=== PATIENT | female | born 1960 | race Two or more races ===

== ENCOUNTER 2020-07-31 07:07 | Emergency (ER) | payer OTHER, MEDICAID, SELFPAY ==
--- NOTE | 2020-07-31 | ECG_ITS ---
Test Reason : CHEST WALL PAIN Blood Pressure : / mmHG Vent. Rate : 065 BPM Atrial Rate : 065 BPM P-R Int : 150 ms QRS Dur : 090 ms QT Int : 420 ms P-R-T Axes : 057 064 063 degrees QTc Int : 436 ms Normal sinus rhythm Normal ECG When compared with ECG of 28-FEB-2019 10:04, No significant change was found Referred By: Generic ED Physician Electronically Signed By:Freddy Cowart
--- NOTE | ~2020-07-31 | XR_ITS ---
EXAMINATION: XR CHEST CLINICAL INFORMATION: Left-sided chest pain. Possible pneumonia. COMPARISON: Chest radiographs 01/24/2020, 07/15/2019 TECHNIQUE: 2 views of the chest were obtained. FINDINGS: There is no airspace consolidation or groundglass opacity. No pneumothorax or pleural reaction or effusion. The heart is normal in size and the hilar and mediastinal contours are normal. There is no acute bony abnormality. Again, there are surgical clips overlying the right breast and right axilla and a clip overlying left lower lung field. Surgical clips also seen upper abdomen. XR/XR chest 2V IMPRESSION: Lungs clear.
--- NOTE | ~2020-07-31 | CT_ITS ---
EXAMINATION: CT ANGIOGRAM OF THE CHEST WITH AND WITHOUT CONTRAST (CT PULMONARY ANGIOGRAM FOR PE) CLINICAL INFORMATION: Reason for Exam Pleuritic chest pain, elevated D-dimer, rule out PE COMPARISON: None TECHNIQUE: Prior to contrast administration, noncontrast localization images were obtained. Subsequently, multidetector volumetric imaging was performed from the thoracic inlet to below the diaphragms following the administration of 80 mL Omnipaque 350 intravenous contrast. No contrast reaction reported Sagittal, coronal, and MIP oblique sagittal reformatted images were obtained on the CT workstation, uploaded to PACS, and reviewed. This CT examination was performed using dose optimization techniques as appropriate, variously including the following: *Automated exposure control *Adjustment of mA and/or kV according to patient size (this includes techniques or standardized protocols for targeted exams where dose is matched to indication/reason for exam; i.e. extremities or head) *Use of iterative reconstruction technique Total exam dose-length product 297 mGy-cm FINDINGS: QUALITY OF STUDY/CONTRAST BOLUS: Satisfactory. PULMONARY ARTERIES: No central or segmental pulmonary emboli. THORACIC AORTA: No aneurysm or dissection. LUNG: The lungs are well-expanded and clear of acute pneumonic process. PLEURA: No pleural effusion or pneumothorax. MEDIASTINUM: Normal heart size. No pericardial effusion. No hilar or mediastinal lymphadenopathy. No evidence of septal bowing or right heart strain. CHEST WALL/AXILLA: No axillary or internal mammary lymphadenopathy. OSSEOUS STRUCTURES: No acute or suspicious osseous abnormality. UPPER ABDOMEN: Visualized liver, spleen, pancreas and bilateral adrenal glands are unremarkable. No reflux of contrast into the hepatic veins to suggest elevated right heart pressures. CT/CT angio chest PE protocol IMPRESSION: No evidence of PE No evidence aortic dissection or aneurysm. VTE: negative
[2020-07-31 07:32] VITALS: BP 146/67; PULSE 64; RESP 19; O2SAT 96; BMI 28.3
--- NOTE | 2020-07-31 08:15 | ED.GENADULT ---
HPI - General Adult General Chief complaint: General Medical Stated complaint: multiple complaints Time Seen by Provider: 07/31/20 08:02 Source: patient Mode of arrival: ambulatory Limitations: no limitations History of Present Illness HPI narrative: 59-year-old female who presents emergency department for evaluation of left-sided chest pain. She states that the pain started 3 days prior. The pain came on gradually. The pain is constant but waxes and wanes in intensity. The pain varies from 8/10 to 10/10 she states the pain is worse if she presses on her left anterior chest or left breast. The patient states that this is a 1st episode of this type of chest pain. She denied fever, chills, cough, shortness of breath. She states that she has chronic dyspnea on exertion. She has not noticed any increased swelling in her lower extremities. She states that she has pain over her entire body secondary to her fibromyalgia but this chest pain is different. She states she took some medicine last night, she cannot recall the name of this medicine, it did not help her pain. The patient states she has a history of right-sided breast cancer but given her genetic studies she required a bilateral mastectomy and bilateral oophorectomy secondary to high risk cancer. Related Data Previous Rx's Medication Instructions Recorded ibuprofen 600 mg PO Q6H PRN #30 tab 07/31/20 Allergies Allergy/AdvReac Type Severity Reaction Status Date / Time No Known Allergies Allergy Unverified 02/09/20 15:07 [No Known Allergies*] Review of Systems Review of Systems: Yes all other systems are reviewed and are negative [facility] Past Medical History [facility] Narrative: Patient's past medical history is significant for right-sided breast cancer with bilateral mastectomy and prophylactic bilateral oophorectomy. She has history of asthma, depression, anxiety, bipolar disorder, migraines, fibromyalgia, osteoporosis, and arthritis. She denies tobacco, and alcohol use. She does smoke marijuana 2 to 3 times a week. Medical History Anxiety Arthritis Asthma Bipolar 1 disorder Breast cancer Fibromyalgia Osteoporosis Social History Social History Alcohol intake: never Smoking Status: Never smoker Use of substances other than those prescribed or required for medical reasons: Yes Substance Use Type: Marijuana Substance Use Frequency: Occasionally Advance Directives: Yes Advance Directives Information Provided: Yes Advance Directives on File: No Physical Exam Vital Signs: Vital Signs: Last Vital Signs Temp 98.2 F 07/31/20 13:34 Pulse 63 07/31/20 13:34 Resp 18 07/31/20 13:34 BP 150/76 H 07/31/20 13:34 Pulse Ox 98 07/31/20 13:34 Body Mass Index 28.3 Const: General: cooperative and healthy appearing Nutritional Appearance: overweight Orientation/consciousness: oriented to person and oriented to place Limitations: no limitations HENMT: Head: Yes normal to inspection, Yes normocephalic and Yes atraumatic Ears: external ears normal General nose exam: Normal external nose present Face and sinus: Yes normal facial exam Mouth: Normal oral and palatal mucosa present Throat: Yes posterior oropharynx normal Eyes: Periorbital: periorbital findings normal Eyelids: Yes eyelids normal Conjunctivae: conjunctivae normal Sclerae: sclerae normal Corneas: corneas normal Pupils: Equal, round and reactive pupils present Direct Ophthalmoscopy: normal light reflex Neck: Neck: Yes full ROM, Yes no lymphadenopathy, Yes no meningeal signs, Yes trachea midline and Yes supple Chest: Chest palpation & inspection: normal inspection of the chest ( bilateral breast reconstructions without nipples) and tenderness ( Left anterior chest costochondral joints) Resp: Effort & Inspection: normal respiratory effort and able to speak in complete sentences Auscultation: clear to auscultation bilaterally Cardio: Rate: regular rate Rhythm: regular rhythm Heart sounds: S1 normal heart sound present, S2 normal heart sound present and no murmurs GI: Inspection: Yes normal to inspection Palpation (GI): Soft to palpation, nontender, no guarding, not rigid and No hepatosplenomegaly present : General: Yes no CVA tenderness Back/Spine/Pelvis: Back: no CVA tenderness Cervical Spine: normal cervical lordosis Thoracic/Lumbar Spine: thoracic and lumbar spine normal to inspection Skin: Lesions: no lesions Rashes: no rashes Wounds: no wounds Neuro: General: oriented to person, oriented to place and no meningeal signs Cranial nerves: Yes CN's II-XII intact bilaterally and Yes Equal, round and reactive pupils present Cognition (Neuro): normal cognition Motor exam (neuro): 5/5 motor strength present throughout Extrem: General: Yes normal to inspection and Yes full ROM Psych: Appearance: well kempt Mental Status: mental status grossly normal Speech and movement: Normal speech and movement present Affect: normal affect Attitude: cooperative Thought process: Normal thought process present Thought content: Normal thought content present Course Course Course Narrative: 59-year-old female who presents emergency department for evaluation of 3 days of left-sided anterior chest pain which is constant but waxes and wanes in intensity. Physical examination did reveal tenderness with palpation of the left anterior chest costochondral joints. Given the patient's history of breast cancer, will do a workup on this patient to include CBC, CMP, troponin, D-dimer, EKG, chest x-ray. Her pain was treated with Toradol 30 mg IV. 1412: The patient's laboratory evaluation did reveal a normal troponin and elevated D-dimer of 245 otherwise was unremarkable. Chest x-ray was normal. CT angiogram pulmonary embolism protocol did not reveal any acute findings which is reassuring. The patient did not get any relief with her IV Toradol but she does want to go home at this point. The patient did have significant chest wall tenderness and a suspect that she has costochondritis. She was prescribed ibuprofen 600 mg 3 times a day for 5 days. She was also advised to take extra-strength Tylenol for her pain. She was given verbal and printed instructions and discharged home. Medical Decision Making Lab Data Result diagrams: 07/31/20 08:39 07/31/20 08:39 Labs: Lab Results 07/31/20 07/31/20 07/31/20 Range/Units 08:39 08:39 08:39 WBC 8.9 (4.8-10.8) X10*3/uL RBC 4.24 (4.20-5.50) X10*6/uL Hgb 12.6 (12.0-16.0) g/dl Hct 40.1 (37-47) % MCV 94.6 (80-98) fL MCH 29.7 (27.0-33.0) pg MCHC 31.4 (31.0-35.0) g/dl RDW 12.4 (11.0-16.0) % Plt Count 349 (160-400) X10*3/uL MPV 9.5 (9.4-12.3) fL Immature Gran % (Auto) 0.3 (0.0-0.4) % Neut % (Auto) 64.2 (45-73) % Lymph % (Auto) 25.1 (20-40) % [place] % (Auto) 5.8 (2-11) % Eos % (Auto) 3.8 (0-4) % Baso % (Auto) 0.8 (0-2) % Lymph # (Auto) 2.2 (1.2-4.9) X10*3/uL [place] # (Auto) 0.5 (0.1-1.2) X10*3/uL Eos # (Auto) 0.3 (0.0-0.4) X10*3/uL Baso # (Auto) 0.1 (0.0-0.2) X10*3/uL Abs Immat Gran (auto) 0.03 (0.00-0.03) X10*3/uL Absolute Neuts (auto) 5.7 (2.0-8.3) X10*3/uL Absolute Nucleated RBC 0.000 (0.0-0.012) X10*3/uL Nucleated RBC % (auto) 0.0 (0.0-0.2) /100WBC D-Dimer 245 NG/ML Sodium 142 (135-145) mmol/L Potassium 4.5 (3.3-5.1) mmol/L Chloride 107 (96-108) mmol/L Carbon Dioxide 27 (22-29) mmol/L Anion Gap 13 (12-20) BUN 18 H (9-16) mg/dL Creatinine 0.95 (0.5-1.4) mg/dL Estim Creat Clear Calc 58.6 Estimated GFR > 60 Random Glucose 99 (60-115) mg/dL Calcium 9.4 (8.4-10.2) mg/dL Total Bilirubin 0.4 (0.0-1.0) mg/dL AST 29 (5-31) U/L ALT 26 (0-31) U/L Alkaline Phosphatase 114 (39-117) U/L Troponin I High Sens (<3.5-17.0) ng/L Total Protein 7.4 (6.5-8.0) g/dL Albumin 4.3 (3.5-5.0) g/dL Lipase (8-78) U/L 07/31/20 07/31/20 Range/Units 08:39 08:39 WBC (4.8-10.8) X10*3/uL RBC (4.20-5.50) X10*6/uL Hgb (12.0-16.0) g/dl Hct (37-47) % MCV (80-98) fL MCH (27.0-33.0) pg MCHC (31.0-35.0) g/dl RDW (11.0-16.0) % Plt Count (160-400) X10*3/uL MPV (9.4-12.3) fL Immature Gran % (Auto) (0.0-0.4) % Neut % (Auto) (45-73) % Lymph % (Auto) (20-40) % [place] % (Auto) (2-11) % Eos % (Auto) (0-4) % Baso % (Auto) (0-2) % Lymph # (Auto) (1.2-4.9) X10*3/uL [place] # (Auto) (0.1-1.2) X10*3/uL Eos # (Auto) (0.0-0.4) X10*3/uL Baso # (Auto) (0.0-0.2) X10*3/uL Abs Immat Gran (auto) (0.00-0.03) X10*3/uL Absolute Neuts (auto) (2.0-8.3) X10*3/uL Absolute Nucleated RBC (0.0-0.012) X10*3/uL Nucleated RBC % (auto) (0.0-0.2) /100WBC D-Dimer NG/ML Sodium (135-145) mmol/L Potassium (3.3-5.1) mmol/L Chloride (96-108) mmol/L Carbon Dioxide (22-29) mmol/L Anion Gap (12-20) BUN (9-16) mg/dL Creatinine (0.5-1.4) mg/dL Estim Creat Clear Calc Estimated GFR Random Glucose (60-115) mg/dL Calcium (8.4-10.2) mg/dL Total Bilirubin (0.0-1.0) mg/dL AST (5-31) U/L ALT (0-31) U/L Alkaline Phosphatase (39-117) U/L Troponin I High Sens < 3.5 (<3.5-17.0) ng/L Total Protein (6.5-8.0) g/dL Albumin (3.5-5.0) g/dL Lipase 28 (8-78) U/L ECG Data Attestation: I personally reviewed and interpreted this ECG as follows: Interpretation: 0744: Normal sinus rhythm rate of 65, normal FL, QRS and QTC intervals, inverted T-wave in lead V 1, no ST segment elevation or ST segment depression, no old EKG for comparison, this is a normal EKG. Discharge Plan Discharge Clinical Impression: Acute costochondritis Patient Disposition: Home, Self-Care Instructions: Costochondritis (ED) Additional Instructions: Your EKG was unremarkable. Your D-dimer was slightly elevated however the CT scan of your chest revealed no blood clots which is reassuring. You do have significant tenderness when I push on your chest and I suspect that you have inflammation of the chest joints as the cause of your pain (costochondritis). Take ibuprofen 600 mg 3 times a day for the next 5 days to reduce the inflammation in her chest joints and hopefully this will relieve your pain. Take Tylenol (acetaminophen) 500 mg pills, 2 pills every 4 to 6 hours as needed for pain. Follow-up with your doctor in 2 days. Please return to the emergency department if your symptoms get worse or if you develop any symptoms that are concerning to you. Prescriptions: New ibuprofen 600 mg tablet 600 mg PO Q6H PRN (Reason: pain) Qty: 30 RF: 0
[2020-07-31] MEDS: Ketorolac Tromethamine 30 MG/ML VIAL IVPUSH (08:42)
[2020-07-31 08:44] LABS: MANUAL DIFF FLAG NO
[2020-07-31 08:46] LABS: Basophils Absolute Auto 0.1 X10*3/uL (0.0-0.2); Basophils Percent Auto 0.8 % (0-2); Eosinophils Absolute Auto 0.3 X10*3/uL (0.0-0.4); Eosinophils Percent Auto 3.8 % (0-4); Hematocrit 40.1 % (37-47); Hemoglobin 12.6 g/dl (12.0-16.0); Imm Gran Abs Auto 0.03 X10*3/uL (0.00-0.03); Imm Gran Pct Auto 0.3 % (0.0-0.4); Lymphocytes Absolute Auto 2.2 X10*3/uL (1.2-4.9); Lymphocytes Percent Auto 25.1 % (20-40); Mean Corpuscular HGB Conc 31.4 g/dl (31.0-35.0); Mean Corpuscular Hemoglobin 29.7 pg (27.0-33.0); Mean Corpuscular Volume 94.6 fL (80-98); Mean Platelet Volume 9.5 fL (9.4-12.3); Monocytes Absolute Auto 0.5 X10*3/uL (0.1-1.2); Monocytes Percent Auto 5.8 % (2-11); Neutrophils Absolute Auto 5.7 X10*3/uL (2.0-8.3); Neutrophils Percent Auto 64.2 % (45-73); Platelet Count 349 X10*3/uL (160-400); Red Blood Count 4.24 X10*6/uL (4.20-5.50); Red Cell Distribution Width 12.4 % (11.0-16.0); White Blood Count 8.9 X10*3/uL (4.8-10.8)
[2020-07-31 08:53] LABS: D Dimer 245 NG/ML
[2020-07-31 09:07] LABS: Lipase 28 U/L (8-78)
[2020-07-31 09:08] LABS: Alanine Aminotransferase 26 U/L (0-31); Albumin Level 4.3 g/dL (3.5-5.0); Alkaline Phosphatase 114 U/L (39-117); Anion Gap 13 (12-20); Aspartate Amino Transferase 29 U/L (5-31); Bilirubin Total 0.4 mg/dL (0.0-1.0); Blood Urea Nitrogen 18 mg/dL (9-16); Calcium 9.4 mg/dL (8.4-10.2); Carbon Dioxide 27 mmol/L (22-29); Chloride 107 mmol/L (96-108); Creatinine Clr Calc Pharmacy 58.6; Estimated Glomerular Filt Rate > 60; Glucose Random 99 mg/dL (60-115); Potassium 4.5 mmol/L (3.3-5.1); Sodium 142 mmol/L (135-145); Total Protein 7.4 g/dL (6.5-8.0)
[2020-07-31 09:13] LABS: Troponin-I High Sensitivity < 3.5 ng/L (<3.5-17.0)
[2020-07-31 09:38] VITALS: BP 140/79; PULSE 65; RESP 18; O2SAT 98
[2020-07-31 11:28] VITALS: BP 142/66; PULSE 70; RESP 18; TEMP 36.7; O2SAT 98
--- NOTE | 2020-07-31 11:31 | PC.NURSE ---
patient a&ox3, monitor and storage bin tender nsr 60s, vss, patient c/o 01/01 pain, awaiting ct scan, will continue to monitor.
[2020-07-31] MEDS: iohexoL 350 MG/ML 75 ML INFUS..BTL IV (12:14)
[2020-07-31 13:34] VITALS: BP 150/76; PULSE 63; RESP 18; TEMP 36.8; O2SAT 98
--- NOTE | 2020-07-31 13:35 | PC.NURSE ---
patient a&ox3, pt c/o 02/01 generalized pain, pt awaiting ct results, vss, will continue to monitor.
== END 2020-07-31 14:55 | disposition home or self-care (01) ==
PROVIDERS: Emergency Provider Emergency Medicine Emergency Medical Services; PCP Family Medicine
DX: M94.0 Chondrocostal junction syndrome [Tietze] (principal); J45.909 Unspecified asthma, uncomplicated; M79.7 Fibromyalgia; F12.90 Cannabis use, unspecified, uncomplicated; Z85.3 Personal history of malignant neoplasm of breast
CPT/HCPCS: 36415; 71046; 71275; 80053; 83690; 84484; 85025; 85379; 93005; 96374; 99284; J1885; Q9967

== ENCOUNTER → 2020-12-13 08:02 | Outpatient (BNV) | payer MEDICAID, OTHER, SELFPAY | PROVIDERS: PCP Family Medicine; Visit Provider Internal Medicine Medical Oncology | DX: M85.80 Other specified disorders of bone density and structure, unspecified site (principal); Z85.3 Personal history of malignant neoplasm of breast; R91.8 Other nonspecific abnormal finding of lung field; M79.7 Fibromyalgia | CPT/HCPCS: 99213 ==

== ENCOUNTER 2021-03-02 08:45 | Emergency (ER) | payer MEDICAID, SELFPAY ==
--- NOTE | ~2021-03-02 | XR_ITS ---
EXAMINATION: XR ELBOW, LEFT XR ELBOW, RIGHT XR KNEE, LEFT XR KNEE, RIGHT CLINICAL INFORMATION: Pain of the knees and elbows. COMPARISON: None TECHNIQUE: Right knee, 4 views and left knee, 4 views Left elbow, 3 views and right elbow, 3 views FINDINGS: Left elbow: Bones, joints and soft tissues have a normal appearance. Right elbow: Bones, joints and soft tissues have a normal appearance. There is a small olecranon enthesophyte. No elbow joint effusion. No arthritic disease, fracture or malalignment. Left knee: Alignment is normal and joint spaces are maintained. No joint effusion. Small osteophytes of the medial tibiofemoral compartment. Chondrocalcinosis of the menisci. Small enthesophyte at the upper pole of patella. Right knee: Bones have normal alignment and joint spaces are maintained. No fracture, subluxation or joint effusion. There are very small osteophytes of the medial tibiofemoral compartment. XR/XR elbow RT min 3V IMPRESSION: * The elbows are normal. No evidence of arthritic disease, fracture or malalignment at either elbow. * Mild osteoarthrosis of the medial tibiofemoral compartments of each knee, and there is meniscal chondrocalcinosis at the left knee.
--- NOTE | ~2021-03-02 | XR_ITS ---
EXAMINATION: XR ELBOW, LEFT XR ELBOW, RIGHT XR KNEE, LEFT XR KNEE, RIGHT CLINICAL INFORMATION: Pain of the knees and elbows. COMPARISON: None TECHNIQUE: Right knee, 4 views and left knee, 4 views Left elbow, 3 views and right elbow, 3 views FINDINGS: Left elbow: Bones, joints and soft tissues have a normal appearance. Right elbow: Bones, joints and soft tissues have a normal appearance. There is a small olecranon enthesophyte. No elbow joint effusion. No arthritic disease, fracture or malalignment. Left knee: Alignment is normal and joint spaces are maintained. No joint effusion. Small osteophytes of the medial tibiofemoral compartment. Chondrocalcinosis of the menisci. Small enthesophyte at the upper pole of patella. Right knee: Bones have normal alignment and joint spaces are maintained. No fracture, subluxation or joint effusion. There are very small osteophytes of the medial tibiofemoral compartment. XR/XR knee LT 4V IMPRESSION: * The elbows are normal. No evidence of arthritic disease, fracture or malalignment at either elbow. * Mild osteoarthrosis of the medial tibiofemoral compartments of each knee, and there is meniscal chondrocalcinosis at the left knee.
--- NOTE | ~2021-03-02 | XR_ITS ---
EXAMINATION: XR ELBOW, LEFT XR ELBOW, RIGHT XR KNEE, LEFT XR KNEE, RIGHT CLINICAL INFORMATION: Pain of the knees and elbows. COMPARISON: None TECHNIQUE: Right knee, 4 views and left knee, 4 views Left elbow, 3 views and right elbow, 3 views FINDINGS: Left elbow: Bones, joints and soft tissues have a normal appearance. Right elbow: Bones, joints and soft tissues have a normal appearance. There is a small olecranon enthesophyte. No elbow joint effusion. No arthritic disease, fracture or malalignment. Left knee: Alignment is normal and joint spaces are maintained. No joint effusion. Small osteophytes of the medial tibiofemoral compartment. Chondrocalcinosis of the menisci. Small enthesophyte at the upper pole of patella. Right knee: Bones have normal alignment and joint spaces are maintained. No fracture, subluxation or joint effusion. There are very small osteophytes of the medial tibiofemoral compartment. XR/XR knee RT 4V IMPRESSION: * The elbows are normal. No evidence of arthritic disease, fracture or malalignment at either elbow. * Mild osteoarthrosis of the medial tibiofemoral compartments of each knee, and there is meniscal chondrocalcinosis at the left knee.
--- NOTE | ~2021-03-02 | XR_ITS ---
EXAMINATION: XR ELBOW, LEFT XR ELBOW, RIGHT XR KNEE, LEFT XR KNEE, RIGHT CLINICAL INFORMATION: Pain of the knees and elbows. COMPARISON: None TECHNIQUE: Right knee, 4 views and left knee, 4 views Left elbow, 3 views and right elbow, 3 views FINDINGS: Left elbow: Bones, joints and soft tissues have a normal appearance. Right elbow: Bones, joints and soft tissues have a normal appearance. There is a small olecranon enthesophyte. No elbow joint effusion. No arthritic disease, fracture or malalignment. Left knee: Alignment is normal and joint spaces are maintained. No joint effusion. Small osteophytes of the medial tibiofemoral compartment. Chondrocalcinosis of the menisci. Small enthesophyte at the upper pole of patella. Right knee: Bones have normal alignment and joint spaces are maintained. No fracture, subluxation or joint effusion. There are very small osteophytes of the medial tibiofemoral compartment. XR/XR elbow LT min 3V IMPRESSION: * The elbows are normal. No evidence of arthritic disease, fracture or malalignment at either elbow. * Mild osteoarthrosis of the medial tibiofemoral compartments of each knee, and there is meniscal chondrocalcinosis at the left knee.
[2021-03-02 08:52] VITALS: BP 151/75; PULSE 66; RESP 16; TEMP 36.4; O2SAT 99; BMI 28.1
[2021-03-02 10:14] LABS: MANUAL DIFF FLAG NO
[2021-03-02 10:15] LABS: Basophils Percent Auto 0.5 % (0-2); Eosinophils Absolute Auto 0.2 X10*3/uL (0.0-0.4); Eosinophils Percent Auto 2.4 % (0-4); Hematocrit 37.8 % (37-47); Hemoglobin 12.1 g/dl (12.0-16.0); Imm Gran Abs Auto 0.02 X10*3/uL (0.00-0.03); Imm Gran Pct Auto 0.2 % (0.0-0.4); Lymphocytes Absolute Auto 2.4 X10*3/uL (1.2-4.9); Lymphocytes Percent Auto 28.6 % (20-40); Mean Corpuscular Hemoglobin 29.8 pg (27.0-33.0); Mean Corpuscular Volume 93.1 fL (80-98); Mean Platelet Volume 9.7 fL (9.4-12.3); Monocytes Absolute Auto 0.4 X10*3/uL (0.1-1.2); Monocytes Percent Auto 5.1 % (2-11); Neutrophils Absolute Auto 5.3 X10*3/uL (2.0-8.3); Neutrophils Percent Auto 63.2 % (45-73); Platelet Count 313 X10*3/uL (160-400); Red Blood Count 4.06 X10*6/uL (4.20-5.50); Red Cell Distribution Width 12.7 % (11.0-16.0); White Blood Count 8.5 X10*3/uL (4.8-10.8)
[2021-03-02 10:30] LABS: Alanine Aminotransferase 15 U/L (0-31); Albumin Level 4.3 g/dL (3.5-5.0); Alkaline Phosphatase 108 U/L (39-117); Anion Gap 11 (12-20); Aspartate Amino Transferase 22 U/L (5-31); Bilirubin Direct < 0.2 mg/dL (0.0-0.5); Bilirubin Total 0.3 mg/dL (0.0-1.0); Blood Urea Nitrogen 14 mg/dL (9-16); C Reactive Protein 0.64 mg/dL (< or = 0.50); Calcium 9.3 mg/dL (8.4-10.2); Carbon Dioxide 25 mmol/L (22-29); Chloride 110 mmol/L (96-108); Estimated Glomerular Filt Rate > 60; Glucose Random 95 mg/dL (60-115); Potassium 4.3 mmol/L (3.3-5.1); Sodium 142 mmol/L (135-145); Total Protein 7.1 g/dL (6.5-8.0)
[2021-03-02 11:04] LABS: Erythrocyte Sedimentation Rate 23 MM/HR (0-20)
--- NOTE | 2021-03-02 11:38 | ED_ITS ---
HPI - General Adult General Chief complaint: Extremity Problem Stated complaint: knee & elbow pain Time Seen by Provider: 03/02/21 09:05 Source: patient Mode of arrival: ambulatory Limitations: no limitations History of Present Illness HPI narrative: 60yo female with PMH Of arthritis, osteoporosis, fibromyalgia, breast cancer status post mastectomy status post chemo and radiation, anxiety, asthma, bipolar disorder here with complaints of bilateral knee and elbow pain for 1 month. Denies injury or trauma. Denies redness, swelling, fevers or chills. Also complaining of some muscle aches. Patient tells me she has not spoken to her primary care doctor. She tells me she believes this may be secondary to her underlying fibromyalgia arthritis but due to her history of cancer she wants to make sure that her ?bones are normal. Related Data Home Medications Medication Instructions Recorded Confirmed acetaminophen 325 mg tablet 2 tab PO Q6H PRN 12/13/20 12/13/20 albuterol sulfate 90 mcg/actuation 2 puff PO Q4H PRN 12/13/20 12/13/20 aerosol inhaler (ProAir HFA) amitriptyline 50 mg tablet 2 tab PO BEDTIME 12/13/20 12/13/20 atorvastatin 10 mg tablet 1 tab PO DAILY 12/13/20 12/13/20 clonazepam 2 mg tablet 1 tab PO BID 12/13/20 12/13/20 cyanocobalamin (vitamin B-12) 100 1 tab PO DAILY 12/13/20 12/13/20 mcg tablet divalproex 125 mg tablet,delayed 4 tab PO Q12H 12/13/20 12/13/20 release duloxetine 60 mg capsule,delayed 1 cap PO DAILY 12/13/20 12/13/20 release gabapentin 300 mg capsule PO 12/13/20 loratadine 10 mg tablet 1 tab PO DAILY 12/13/20 12/13/20 melatonin 5 mg tablet 1 - 2 tab PO BEDTIME PRN 12/13/20 12/13/20 omeprazole 20 mg capsule,delayed 1 cap PO DAILY 12/13/20 12/13/20 release ziprasidone HCl 60 mg capsule 1 cap PO BID 12/13/20 12/13/20 Previous Rx's Medication Instructions Recorded ibuprofen 600 mg tablet 600 mg PO Q6H PRN #30 tab 07/31/20 Allergies Allergy/AdvReac Type Severity Reaction Status Date / Time No Known Allergies Allergy Unverified 02/09/20 15:07 [No Known Allergies*] Review of Systems Review of Systems: Yes all other systems are reviewed and are negative Constitutional: Constitutional: Reports no additional constitutional complaints, Denies body ache(s), Denies chills, Denies fever(s), Denies headache(s) and Denies weakness Eyes: Eyes: Reports no additional eye complaints and Denies change in vision ENT: Reports system reviewed and no additional complaints, except as documented, Denies dizziness, Denies headache(s), Denies nasal congestion, Denies nasal discharge and Denies neck pain Cardiovascular: Cardiovascular: Reports no additional cardiovascular complaints, Denies chest pain, Denies leg edema and Denies dyspnea Respiratory: Respiratory: Reports no additional respiratory complaints, Denies cough and Denies dyspnea Gastrointestinal: Gastrointestinal: Reports no additional gastrointestinal complaints, Denies abdominal pain, Denies diarrhea, Denies nausea and Denies vomiting Genitourinary: Genitourinary: Reports no additional female genitourinary complaints and Denies urinary incontinence Musculoskeletal: Musculoskeletal: Reports no additional musculoskeletal complaints, Denies back pain, Reports arthralgias, Denies joint swelling, Denies neck pain, Denies numbness and Denies tingling Comments: Muscle aches Integumentary/Breasts: Skin/Breast: Reports system reviewed and no additional complaints, except as docu and Denies rash Neurologic: Reports system reviewed and no additional complaints, except as documented, Denies Abnormal speech present, Denies dizziness, Denies headache(s), Denies numbness, Denies tingling and Denies weakness PMF Past Medical History Attestation statement: The following information was validated with the patient. Source: old records reviewed and nursing notes reviewed Medical History Anxiety Arthritis Asthma Bipolar 1 disorder Breast cancer Fibromyalgia Osteoporosis Surgical History History of modified radical mastectomy History of removal of both ovaries Social History Social History Alcohol intake: never Patient Tobacco Use Status: Former Tobacco user Substance Use Type: Marijuana Advance Directives: No Physical Exam Vital Signs: Vital Signs: Last Vital Signs Temp 97.5 F 03/02/21 08:52 Pulse 66 03/02/21 08:52 Resp 16 03/02/21 08:52 BP 151/75 H 03/02/21 08:52 Pulse Ox 99 03/02/21 08:52 Body Mass Index 28.1 Const: General: cooperative, healthy appearing, comfortable and no acute distress Orientation/consciousness: patient oriented x3 Limitations: no limitations HENMT: Head: Yes normal to inspection Ears: hearing grossly normal bilaterally General nose exam: Normal external nose present Face and sinus: Yes normal facial exam Mouth: Normal oral and palatal mucosa present Throat: Yes posterior oropharynx normal Eyes: General: appearance normal, both eyes and all related structures Pupils: Equal, round and reactive pupils present Neck: Neck: Yes normal visual inspection Chest: Chest palpation & inspection: normal inspection of the chest Resp: Effort & Inspection: normal respiratory effort Auscultation: clear to auscultation bilaterally Cardio: Rate: regular rate Rhythm: regular rhythm Peripheral pulses: Per ipheral pulses 2+ throughout GI: Inspection: Yes normal to inspection Palpation (GI): Soft to palpation and nontender Auscultation: normal bowel sounds Back/Spine/Pelvis: Thoracic/Lumbar Spine: thoracic and lumbar spine normal to inspection Skin: General skin exam: no rashes or lesions noted Neuro: General: patient oriented x3, no focal motor deficits and normal sensation to monofilament Cranial nerves: Yes Equal, round and reactive pupils present Cognition (Neuro): normal cognition Speech: No Abnormal speech present Gait exam (Neuro): Normal gait present Motor exam (neuro): 5/5 motor strength present throughout Extrem: Other: Tenderness to the bilateral lateral aspects of the elbows with no obvious swelling, redness or deformity. There is full range of motion Tenderness to the anterior aspect of bilateral knees with no obvious swelling, redness or deformity. There is full range of motion General: Yes normal to inspection Course Course Course Narrative: 60-year-old female here with joint pain and muscle aches for about 1 month. Denies fevers, chills, weight loss, redness or swelling of the joints.. No upper respiratory symptoms. She has not concerned for COVID. She feels that her symptoms may relate be related to her underlying fibromyalgia and osteoarthritis but due to her history of cancer she wanted to make sure that everything was okay in my bones. Exam is benign Vital stable Will check x-rays, basic labs due to complaints of muscle aches 1140-x-ray show osteoarthritis. Labs are normal. Recommend patient follow-up with her outpatient provider. Reviewed worrisome signs and symptoms of when to return to the emergency department. Comfortable discharge home. Medical Decision Making MDM Narrative Medical decision making narrative: Less likely rhabdomyolysis with normal CK, renal function Medical Records Medical records reviewed: Yes I reviewed the patient's medical records. Lab Data Lab results reviewed: Yes I reviewed the patient's lab results. Result diagrams: 03/02/21 10:03/02/21 10: Labs: Lab Results 03/02/21 03/02/21 03/02/21 Range/Units 10: 10: 10: WBC 8.5 (4.8-10.8) X10*3/uL RBC 4.06 L (4.20-5.50) X10*6/uL Hgb 12.1 (12.0-16.0) g/dl Hct 37.8 (37-47) % MCV 93.1 (80-98) fL MCH 29.8 (27.0-33.0) pg MCHC 32.0 (31.0-35.0) g/dl RDW 12.7 (11.0-16.0) % Plt Count 313 (160-400) X10*3/uL MPV 9.7 (9.4-12.3) fL Immature Gran % (Auto) 0.2 (0.0-0.4) % Neut % (Auto) 63.2 (45-73) % Lymph % (Auto) 28.6 (20-40) % [place] % (Auto) 5.1 (2-11) % Eos % (Auto) 2.4 (0-4) % Baso % (Auto) 0.5 (0-2) % Lymph # (Auto) 2.4 (1.2-4.9) X10*3/uL [place] # (Auto) 0.4 (0.1-1.2) X10*3/uL Eos # (Auto) 0.2 (0.0-0.4) X10*3/uL Baso # (Auto) 0.0 (0.0-0.2) X10*3/uL Abs Immat Gran (auto) 0.02 (0.00-0.03) X10*3/uL Absolute Neuts (auto) 5.3 (2.0-8.3) X10*3/uL Absolute Nucleated RBC 0.000 (0.0-0.012) X10*3/uL Nucleated RBC % (auto) 0.0 (0.0-0.2) /100WBC ESR 23 H (0-20) MM/HR Sodium 142 (135-145) mmol/L Potassium 4.3 (3.3-5.1) mmol/L Chloride 110 H (96-108) mmol/L Carbon Dioxide 25 (22-29) mmol/L Anion Gap 11 L (12-20) BUN 14 (9-16) mg/dL Creatinine 0.83 (0.5-1.4) mg/dL Estim Creat Clear Calc 66.0 Estimated GFR > 60 Random Glucose 95 (60-115) mg/dL Calcium 9.3 (8.4-10.2) mg/dL Total Bilirubin 0.3 (0.0-1.0) mg/dL Direct Bilirubin < 0.2 (0.0-0.5) mg/dL AST 22 (5-31) U/L ALT 15 (0-31) U/L Alkaline Phosphatase 108 (39-117) U/L Total Creatine Kinase 119 (26-140) U/L C-Reactive Protein 0.64 H (< or = 0.50) mg/dL Total Protein 7.1 (6.5-8.0) g/dL Albumin 4.3 (3.5-5.0) g/dL Discharge Plan Discharge Clinical Impression: Osteoarthritis Qualifiers: Osteoarthritis location: unspecified site Patient Disposition: Home, Self-Care Instructions: Osteoarthritis (ED) Additional Instructions: Your x-rays show arthritis. Lab work normal Follow-up with your regular doctor Heat or ice as needed Motrin or Tylenol for pain as needed Prescriptions: No Action acetaminophen 325 mg tablet 2 tab PO Q6H PRN (Reason: severe pain) RF: 0 cyanocobalamin (vitamin B-12) 100 mcg tablet 1 tab PO DAILY RF: 0 atorvastatin 10 mg tablet 1 tab PO DAILY RF: 0 amitriptyline 50 mg tablet 2 tab PO BEDTIME RF: 0 clonazepam 2 mg tablet 1 tab PO BID RF: 0 divalproex 125 mg tablet,delayed release (DR/EC) 4 tab PO Q12H RF: 0 gabapentin 300 mg capsule PO RF: 0 omeprazole 20 mg capsule,delayed release(DR/EC) 1 cap PO DAILY RF: 0 albuterol sulfate [ProAir HFA] 90 mcg/actuation HFA aerosol inhaler 2 puff PO Q4H PRN (Reason: dyspnea) RF: 0 ziprasidone HCl 60 mg capsule 1 cap PO BID RF: 0 loratadine 10 mg tablet 1 tab PO DAILY RF: 0 duloxetine 60 mg capsule,delayed release(DR/EC) 1 cap PO DAILY RF: 0 melatonin 5 mg tablet 1 - 2 tab PO BEDTIME PRN (Reason: insomnia) RF: 0 ibuprofen 600 mg tablet 600 mg PO Q6H PRN (Reason: pain) Qty: 30 RF: 0 Referrals: Valentine Rodriguez MD [Primary Care Provider] - 2 days Interventions: ED Discharge Assessment Last Done: 03/02/21 11:15 Discharge Date/Time: 03/02/21 11:15
== END 2021-03-02 11:15 | disposition home or self-care (01) ==
PROVIDERS: Nurse Practitioner Family; Emergency Provider Emergency Medicine Emergency Medical Services; PCP Family Medicine
DX: M17.12 Unilateral primary osteoarthritis, left knee (principal); M25.522 Pain in left elbow; M25.521 Pain in right elbow; M25.562 Pain in left knee; M25.561 Pain in right knee; Z79.899 Other long term (current) drug therapy; Z87.891 Personal history of nicotine dependence
CPT/HCPCS: 36415; 73080; 73564; 80048; 80076; 82550; 85025; 85652; 86140; 99283

== ENCOUNTER 2021-05-29 08:19 | Outpatient (REF) | payer OTHER, MEDICAID, SELFPAY | END 2021-05-29 08:20 | disposition home or self-care (01) | LOC: HO.MAMMO 08:19 | PROVIDERS: PCP Family Medicine; Visit Provider Family Medicine | DX: Z13.89 Encounter for screening for other disorder (principal) ==

== ENCOUNTER 2021-07-15 07:37 | Emergency (ER) | payer MEDICAID, SELFPAY ==
--- NOTE | ~2021-07-15 | CT_ITS ---
EXAMINATION: CT HEAD WITHOUT CONTRAST CLINICAL INFORMATION: Headache. COMPARISON: None TECHNIQUE: Contiguous axial imaging was performed from the skull base to vertex without intravenous administration of contrast. This CT examination was performed using dose optimization techniques as appropriate, variously including the following: *Automated exposure control *Adjustment of mA and/or kV according to patient size (this includes techniques or standardized protocols for targeted exams where dose is matched to indication/reason for exam; i.e. extremities or head) *Use of iterative reconstruction technique DLP: 627 mGy-cm FINDINGS: There is no evidence of acute intracranial hemorrhage or territorial infarction. No abnormal mass effect or midline shift is seen. Cuellar to white matter differentiation is well preserved. No extra-axial fluid collections are identified. The ventricles are normal in size. There is no abnormal attenuation within the brain parenchyma. The osseous structures and soft tissues are normal. There is mild mucoperiosteal thickening left posterior ethmoid sinus. Rest of the paranasal sinuses and mastoid air cells are well-aerated. CT/CT head/brain wo con IMPRESSION: No acute intracranial process seen. Mild chronic left posterior ethmoid sinusitis.
[2021-07-15 08:24] VITALS: BP 190/93; PULSE 70; RESP 18; TEMP 36.8; O2SAT 98; BMI 29.2
--- NOTE | 2021-07-15 09:11 | ED.HA ---
HPI - Headache General Chief Complaint: Headache Stated Complaint: headache Time Seen by Provider: 07/15/21 08:39 Source: patient Mode of arrival: ambulatory Limitations: no limitations History of Present Illness MD elicited complaint: headache and migraine Pertinent past history: migraines Onset (ago): day(s) (8) Onset description: gradually Location: diffuse Severity: moderate Quality & Timing: aching, throbbing and progressively worsening Exacerbating factors: light and noise Relieving factors: nothing Context: occurred at rest Associated symptoms: nausea and photophobia Treatments prior to arrival: acetaminophen, ibuprofen and migraine medication Related Data Home Medications Medication Instructions Recorded Confirmed acetaminophen 325 mg tablet 2 tab PO Q6H PRN 12/13/20 12/13/20 albuterol sulfate 90 mcg/actuation 2 puff PO Q4H PRN 12/13/20 12/13/20 aerosol inhaler (ProAir HFA) amitriptyline 50 mg tablet 2 tab PO BEDTIME 12/13/20 12/13/20 atorvastatin 10 mg tablet 1 tab PO DAILY 12/13/20 12/13/20 clonazepam 2 mg tablet 1 tab PO BID 12/13/20 12/13/20 cyanocobalamin (vitamin B-12) 100 1 tab PO DAILY 12/13/20 12/13/20 mcg tablet divalproex 125 mg tablet,delayed 4 tab PO Q12H 12/13/20 12/13/20 release duloxetine 60 mg capsule,delayed 1 cap PO DAILY 12/13/20 12/13/20 release gabapentin 300 mg capsule PO 12/13/20 loratadine 10 mg tablet 1 tab PO DAILY 12/13/20 12/13/20 melatonin 5 mg tablet 1 - 2 tab PO BEDTIME PRN 12/13/20 12/13/20 omeprazole 20 mg capsule,delayed 1 cap PO DAILY 12/13/20 12/13/20 release ziprasidone HCl 60 mg capsule 1 cap PO BID 12/13/20 12/13/20 Previous Rx's Medication Instructions Recorded ibuprofen 600 mg tablet 600 mg PO Q6H PRN #30 tab 07/31/20 pyhkoaspac-rxgjgqjzdivdw-zcwglchx 1 tab PO Q6H PRN #20 tab 07/15/21 50 mg-325 mg-40 mg tablet cyclobenzaprine 10 mg tablet 10 mg PO TID PRN #14 tab 07/15/21 ondansetron 4 mg disintegrating 4 mg PO Q8H PRN #20 tab 07/15/21 tablet Allergies Allergy/AdvReac Type Severity Reaction Status Date / Time No Known Allergies Allergy Unverified 02/09/20 15:07 [No Known Allergies*] Review of Systems Review of Systems: Constitutional : No Fever, No Chills, No Fatigue ENT/Mouth : No sore throat, No Rhinorrhea Eyes: No Eye Pain, No Swelling, No Redness Cardiovascular : No Chest Pain, No SOB, No Dyspnea on Exertion Respiratory : No Cough, No Sputum Gastrointestinal : pos Nausea, No Vomiting, No Diarrhea, No abdominal Pain Genitourinary : No Dysuria, No Urinary Frequency, No Hematuria, Musculoskeletal : No joint pain, No Myalgias, No Joint Swelling Skin : No Skin Lesions, No rash Neuro : No Weakness, No Numbness, No Dizziness, positive Headache Psych : No Anxiety/Panic, No Depression Heme/Lymph: No Bruising, No Bleeding,No Lymphadenopathy Endocrine : No Polyuria, No Polydipsia All other systems reviewed and are negative [facility] Past Medical History Attestation statement: The following information was validated with the patient. Medical History (Updated 07/15/21 @ 11:08 by Nora Nur DO) Anxiety Arthritis Asthma Bipolar 1 disorder Breast cancer Chronic headaches Fibromyalgia Osteoporosis Surgical History History of modified radical mastectomy History of removal of both ovaries Social History Social History Alcohol intake: never Patient Tobacco Use Status: Former Tobacco user Use of substances other than those prescribed or required for medical reasons: No Substance Use Type: Marijuana Advance Directives: No Advance Directives Information Provided: No Physical Exam Vital Signs: Vital Signs: Last Vital Signs Temp 98.3 F 07/15/21 08:24 Pulse 70 07/15/21 08:24 Resp 18 07/15/21 08:24 BP 190/93 H 07/15/21 08:24 Pulse Ox 98 07/15/21 08:24 BMI result Body Mass Index 29.2 Appearance: Alert. Oriented X3. No acute distress. Eyes: Pupils equal, round and reactive to light. ENT: Pharynx normal. Neck: Normal inspection. Neck supple. no meningeal signs CVS: Normal heart rate and rhythm. Pulses normal. Respiratory: No respiratory distress. Breath sounds normal. Abdomen: Soft and non-tender. Skin: Skin warm and dry. Normal skin color. Normal skin turgor. Extremities: No lower extremity edema. No calf ttp Neuro: Oriented X 3. No motor deficit. No sensory deficit. Course Course Course Narrative: patient feels better stable for DC MDM - Headache MDM Narrative Medical decision making narrative: 60 yo female hx of breast cancer, chronic migraines, no blood thinners here with headache x 8 days, no fevers, normal neuro exam - given history though she reports chronic headaches very similar to this will obtain imaging for mass - doubt SAH[employer] infection. IV medications to abort pain. Dispo per results and findings. Discharge Plan Discharge Clinical Impression: Tension headache Patient Disposition: Home, Self-Care Instructions: Tension Headache (ED) Additional Instructions: return to ED for any worsening symptoms or concerns Prescriptions: New cyclobenzaprine 10 mg tablet 10 mg PO TID PRN (Reason: muscle spasm) Qty: 14 0RF exjpscxabi-qalscbtkrlwjc-xrju 50-325-40 mg tablet 1 tab PO Q6H PRN (Reason: pain) Qty: 20 0RF ondansetron 4 mg tablet,disintegrating 4 mg PO Q8H PRN (Reason: nausea and vomiting) Qty: 20 0RF No Action acetaminophen 325 mg tablet 2 tab PO Q6H PRN (Reason: severe pain) 0RF cyanocobalamin (vitamin B-12) 100 mcg tablet 1 tab PO DAILY 0RF atorvastatin 10 mg tablet 1 tab PO DAILY 0RF amitriptyline 50 mg tablet 2 tab PO BEDTIME 0RF clonazepam 2 mg tablet 1 tab PO BID 0RF divalproex 125 mg tablet,delayed release (DR/EC) 4 tab PO Q12H 0RF gabapentin 300 mg capsule PO 0RF omeprazole 20 mg capsule,delayed release(DR/EC) 1 cap PO DAILY 0RF albuterol sulfate [ProAir HFA] 90 mcg/actuation HFA aerosol inhaler 2 puff PO Q4H PRN (Reason: dyspnea) 0RF ziprasidone HCl 60 mg capsule 1 cap PO BID 0RF loratadine 10 mg tablet 1 tab PO DAILY 0RF duloxetine 60 mg capsule,delayed release(DR/EC) 1 cap PO DAILY 0RF melatonin 5 mg tablet 1 - 2 tab PO BEDTIME PRN (Reason: insomnia) 0RF ibuprofen 600 mg tablet 600 mg PO Q6H PRN (Reason: pain) Qty: 30 0RF
[2021-07-15] MEDS: Metoclopramide HCl 10 MG/2 ML VIAL IVPUSH (10:31)
[2021-07-15] MEDS: diphenhydrAMINE HCL 50 MG/ML VIAL 25 MG IVPUSH (10:31)
[2021-07-15] MEDS: Ketorolac Tromethamine 15 MG/ML VIAL 30 MG IVPUSH (10:31)
[2021-07-15 11:04] VITALS: BP 150/81; PULSE 66; RESP 18; TEMP 36.8; O2SAT 99
== END 2021-07-15 11:15 | disposition home or self-care (01) ==
PROVIDERS: Emergency Provider Emergency Medicine; PCP Family Medicine
DX: G44.209 Tension-type headache, unspecified, not intractable (principal); Z87.891 Personal history of nicotine dependence; Z79.899 Other long term (current) drug therapy
CPT/HCPCS: 70450; 96374; 96375; 99284; J1200; J1885; J2765

== ENCOUNTER 2021-10-25 10:42 | Outpatient (REF) | payer MEDICAID, SELFPAY ==
[2021-10-25 11:34] LABS: COVID-19 Test Positive (Negative); IDNOW Serial# 55D5AD1C
== END 2021-10-25 10:43 | disposition home or self-care (01) ==
LOC: HO.LAB 10:42
PROVIDERS: Visit Provider Internal Medicine
DX: Z20.822 Contact with and (suspected) exposure to COVID-19 (principal)
CPT/HCPCS: 87635; C9803

== ENCOUNTER 2021-12-10 07:51 | Outpatient (REF) | payer MEDICAID, SELFPAY ==
--- NOTE | ~2021-12-10 | MM_ITS ---
EXAMINATION: BONE DENSITOMETRY CLINICAL INDICATION: Osteoporosis. COMPARISON: Previous BD dated 12/05/2019 and baseline BD dated 05/21/2010. TECHNIQUE: Using a [employer] DXA System (software version: 13.1) manufactured by [employer], dual-energy x-ray absorptiometry was performed of the lumbar spine and left hip. The images are of good technical quality. Summary results are attached. FINDINGS: AP SPINE L1-L4: Current: BMD 0.945 g/cm2, Z-score -1.0, T-score -2.0, osteopenia, 5.1% decrease from previous, 0.1% increase from baseline (<5% change is not significant). Prior: BMD 0.996 g/cm2. Baseline: BMD 0.944 g/cm2. LEFT FEMUR, NECK: Current: BMD 0.859 g/cm2, Z-score -0.2, T-score -1.3, osteopenia. Prior: BMD 0.874 g/cm2. Baseline: BMD 0.913 g/cm2. LEFT FEMUR, TOTAL: Current: BMD 1.006 g/cm2, Z-score 0.7, T-score 0.0, normal, 3.3% increase from previous, 0.8% decrease from baseline (<5% change is not significant). Prior: BMD 0.974 g/cm2. Baseline: BMD 1.014 g/cm2. IDENTIFIED RISK FACTORS: Osteoporosis. Early menopause, secondary osteoporosis, bilateral oophorectomy. HISTORY OF FRACTURE: None listed. MEDICATIONS: Calcium supplements or multivitamin, vitamin D. MM/XR DEXA axial skeleton IMPRESSION: 1. DIAGNOSIS: Osteopenia based on the lowest T-score value of -2.0 in the lumbar spine applying World Health Organization criteria. 2. 10-YEAR FRACTURE RISK PREDICTION, FRAX: Major osteoporotic fracture (clinical spine, forearm, hip or shoulder) 4.1%. Hip fracture 0.3%. 3. Treatment Recommendations: NOF guidelines recommend consideration for treatment in postmenopausal women and men age 50 and older presenting with the following: -A hip or vertebral (clinical or morphometric) fracture. -T-score less than or equal to -2.5 at the femoral neck or spine after appropriate evaluation to exclude secondary causes. -Low bone mass at the hip or spine and a 10-year fracture probability by FRAX of greater than or equal to 3% for hip fracture or greater than or equal to 20% for major osteoporotic fracture based on the [place] adapted WHO algorithm. 4. Other Recommendations: All treatment decisions require clinical judgment and consideration of individual patient factors, including patient preferences, comorbidities, previous drug use, risk factors not captured in the FRAX model (e.g. frailty, falls, vitamin D deficiency, increased bone turnover, interval significant decline in bone density) and possible under or overestimation of fracture risk by FRAX. Additional medical evaluation for secondary cause of low bone mineral density may be appropriate. FUTURE SCAN RECOMMENDATION: People with diagnosed cases of osteoporosis or at high risk for fracture should have regular bone mineral density tests. For patients eligible for Medicare, routine testing is allowed once every 2 years. The testing frequency can be increased to one year for patients who have rapidly progressing disease, those who are receiving or discontinuing medical therapy to restore bone mass, or have additional risk factors.
== END 2021-12-10 07:52 | disposition home or self-care (01) ==
LOC: HO.MAMMO 07:51
PROVIDERS: Visit Provider Family Medicine
DX: Z13.820 Encounter for screening for osteoporosis (principal); Z78.0 Asymptomatic menopausal state; M85.80 Other specified disorders of bone density and structure, unspecified site
CPT/HCPCS: 77080

== ENCOUNTER 2021-12-12 08:31 | Outpatient (REF) | payer MEDICAID, SELFPAY ==
--- NOTE | ~2021-12-12 | CT_ITS ---
EXAMINATION: CT CHEST SCREENING CLINICAL INFORMATION: Smoker 2 packs per day for 40 pack years. Quit 13 years ago. COMPARISON: CT angiogram chest 07/31/2020. TECHNIQUE: Multidetector volumetric CT imaging of the chest is performed without contrast using low dose technique. Additional 2D coronal and sagittal reformatted images and axial 3D maximum intensity projection (MIP) images are generated on the CT workstation. This CT examination was performed using dose optimization techniques as appropriate, variously including the following: *Automated exposure control *Adjustment of mA and/or kV according to patient size (this includes techniques or standardized protocols for targeted exams where dose is matched to indication/reason for exam; i.e. extremities or head) *Use of iterative reconstruction technique DLP: 55 mGy-cm FINDINGS: LUNGS: The lungs are well-expanded and clear of acute pneumonic process. There are multiple 1-2 mm calcified nodules scattered throughout both lungs likely calcified granulomas. No noncalcified nodule visualized. There is no ground-glass density or atelectasis. MEDIASTINUM: The thyroid lobes are symmetric and normal. The central trachea and the bronchi are widely patent. The heart size and great vessels are normal caliber. There is no pericardial effusion. No abnormal sized mediastinal or hilar lymph nodes seen. PLEURA: There is no pleural effusion. No pleural mass or thickening. AXILLA: Multiple surgical bora seen in the right axilla. No abnormal sized lymph nodes seen. The chest wall is unremarkable. UPPER ABDOMEN: Visualized liver, spleen, pancreas and bilateral adrenal glands unremarkable. The gallbladder has been surgically removed. OSSEOUS STRUCTURES: No lytic or sclerotic process seen. CT/CT lung screening IMPRESSION: Multiple calcified nodules likely granuloma. Lungs otherwise clear. Postsurgical changes right axilla from lymph node dissection and post cholecystectomy changes. ASSESSMENT: Lung-RADS category 2: Benign RECOMMENDATION: Low-dose annual CT chest.
== END 2021-12-12 08:32 | disposition home or self-care (01) ==
LOC: HO.CT 08:31
PROVIDERS: Visit Provider Physician Assistant Medical
DX: Z12.2 Encounter for screening for malignant neoplasm of respiratory organs (principal); Z87.891 Personal history of nicotine dependence
CPT/HCPCS: 71271

== ENCOUNTER → 2022-03-10 09:51 | Outpatient (BNVA) | payer MEDICAID, SELFPAY | PROVIDERS: PCP Family Medicine; Visit Provider Internal Medicine | DX: R52 Pain, unspecified (principal) | CPT/HCPCS: 99202 ==

== ENCOUNTER 2022-08-02 06:02 | Emergency (ER) | payer MEDICAID, SELFPAY ==
--- NOTE | ~2022-08-02 | CT_ITS ---
EXAMINATION: CT ABDOMEN AND PELVIS WITHOUT CONTRAST CLINICAL INFORMATION: Abdominal pain, right lower quadrant pain COMPARISON: CT 09/06/2016 TECHNIQUE: Multidetector volumetric imaging was performed from the superior aspect of the liver through the pubic symphysis. Sagittal and coronal reformatted images were obtained on the technologist's workstation. This CT examination was performed using dose optimization techniques as appropriate, variously including the following: *Automated exposure control *Adjustment of mA and/or kV according to patient size (this includes techniques or standardized protocols for targeted exams where dose is matched to indication/reason for exam; i.e. extremities or head) *Use of iterative reconstruction technique DLP: 556 mGy-cm FINDINGS: LUNG BASES: The visualized lung bases are unremarkable. LIVER, GALLBLADDER, AND BILIARY TREE: The liver is normal in size, shape, and attenuation. No focal hepatic lesion or biliary ductal dilatation is present. Status postcholecystectomy. PANCREAS: Unremarkable. No acute inflammatory changes. SPLEEN: Unremarkable. ADRENAL GLANDS: Unremarkable. KIDNEYS AND URETERS: No renal calculi seen. There is mild dilatation of the right renal pelvis and right ureter, extending to the level of the pelvis, with the more distal ureter appearing nondistended. No radiopaque right ureteral calculi seen. Etiology of the dilatation has not been determined. No left hydroureteronephrosis. No suspicious renal lesions. BLADDER: Unremarkable. No radiopaque intraluminal calculi seen. GASTROINTESTINAL TRACT: Nonobstructive bowel gas pattern. No dilated small or large bowel loops. There is a submucosal prominence seen of the cecum and the ascending colon, nonspecific. No Pericolonic inflammatory changes seen. Findings are nonspecific. This can be seen with inflammatory bowel disease in the appropriate clinical circumstance. There is small to moderate stool in the large colon. No acute inflammatory changes otherwise seen associated with the large colon. Appendix appears unremarkable. No free fluid or free air. ABDOMINAL WALL: Small fat-containing umbilical hernia. Surgical clips in bilateral lower quadrants, could be related to prior hernia repair. LYMPH NODES: No adenopathy seen. VASCULAR: No aortic aneurysmal dilatation. PELVIC VISCERA: Within normal limits OSSEOUS STRUCTURES: Multilevel degenerative changes in the spine. CT/CT abdomen pelvis wo IV con IMPRESSION: 1. Mild dilatation of the right renal pelvis and the right ureter, extending to the level of the pelvis. No radiopaque ureteral calculi identified. Etiology of dilatation has not been determined. Clinically correlate, correlate with urinalysis. Further evaluation with follow-up CT urogram as clinically warranted. 2. Findings in the cecum and ascending colon, nonspecific, can be seen with inflammatory bowel disease. Clinically correlate. 3. Status postcholecystectomy. Fleischner guidelines were followed.
--- NOTE | ~2022-08-02 | XR_ITS ---
EXAMINATION: XR CHEST CLINICAL INFORMATION: Body ache COMPARISON: July 31, 2020 TECHNIQUE: AP portable view of the chest was obtained. FINDINGS: No significant abnormality is noted involving the heart, lungs, mediastinum, bony thorax or soft tissues. Metallic clips are seen within both breasts. Right axillary clips in place. XR/XR chest 1V IMPRESSION: No acute disease.
[2022-08-02 06:23] VITALS: BP 139/97; PULSE 78; RESP 16; TEMP 36.4; O2SAT 98; BMI 30.6
--- NOTE | 2022-08-02 07:54 | ECG_ITS ---
Test Reason : WEAKNESS Blood Pressure : / mmHG Vent. Rate : 062 BPM Atrial Rate : 062 BPM P-R Int : 170 ms QRS Dur : 088 ms QT Int : 426 ms P-R-T Axes : 066 059 066 degrees QTc Int : 432 ms Normal sinus rhythm Normal ECG When compared with ECG of 31-JUL-2020 07:44, No significant change was found Referred By: Ayanna Hudson Electronically Signed By:MARLENE ARROYO
--- NOTE | 2022-08-02 07:56 | ED.GENADULT ---
HPI - General Adult General Chief complaint: Abdominal Pain Stated complaint: Pain in both legs and knees/stabbing pain in Abd Time Seen by Provider: 08/02/22 07:36 Source: patient Mode of arrival: ambulatory Limitations: no limitations History of Present Illness HPI narrative: 61-year-old female came in for an duration of generalized body ache, bilateral lower extremities pain, abdominal pain, patient is concerned because she had a history of breast cancer, patient also with history of fibromyalgia, no recent injury or fall. Related Data Home Medications Medication Instructions Recorded Confirmed acetaminophen 325 mg tablet 2 tab PO Q6H PRN severe pain 12/13/20 03/10/22 albuterol sulfate 90 mcg/actuation 2 puff PO Q4H PRN dyspnea 12/13/20 03/10/22 aerosol inhaler (ProAir HFA) atorvastatin 10 mg tablet 1 tab PO DAILY 12/13/20 03/10/22 clonazepam 2 mg tablet 1 tab PO BID anxiety 12/13/20 03/10/22 cyanocobalamin (vitamin B-12) 100 1 tab PO DAILY 12/13/20 03/10/22 mcg tablet divalproex 125 mg tablet,delayed 4 tab PO Q12H 12/13/20 03/10/22 release loratadine 10 mg tablet 1 tab PO DAILY 12/13/20 03/10/22 omeprazole 20 mg capsule,delayed 1 cap PO DAILY 12/13/20 03/10/22 release ziprasidone HCl 60 mg capsule 1 cap PO BID 12/13/20 03/10/22 Previous Rx's Medication Instructions Recorded ibuprofen 600 mg tablet 600 mg PO Q6H PRN pain #30 tabs 07/31/20 ondansetron 4 mg disintegrating 4 mg PO Q8H PRN nausea and 07/15/21 tablet vomiting #20 tabs Allergies Allergy/AdvReac Type Severity Reaction Status Date / Time No Known Allergies Allergy Verified 03/10/22 10:03 [No Known Allergies*] Review of Systems Review of Systems: All other systems are reviewed and are negative Constitutional: Reports as per HPI and Reports no additional constitutional complaints Eyes: Reports as per HPI and Reports no additional eye complaints Reports system reviewed and no additional complaints, except as documented Cardiovascular: Reports as per HPI and Reports no additional cardiovascular complaints Respiratory: Reports as per HPI and Reports no additional respiratory complaints Gastrointestinal: Reports as per HPI and Reports no additional gastrointestinal complaints Genitourinary: Reports no additional female genitourinary complaints Musculoskeletal: Reports no additional musculoskeletal complaints Skin/Breast: Reports system reviewed and no additional complaints, except as docu Psychiatric: Reports no additional psychiatric complaints Endocrine: Reports no additional endocrine complaints Hematologic/Lymphatic: Reports no additional hematologic/lymphatic complaints Allergic/Immunologic: Reports no additional allergic/immunologic complaints Reports system reviewed and no additional complaints, except as documented and Reports Abnormal speech present [facility] Past Medical History Medical History Anxiety Arthritis Asthma Bipolar 1 disorder Breast cancer Chronic headaches Fibromyalgia Osteoporosis Surgical History History of modified radical mastectomy History of removal of both ovaries Family History Family History Father Cancer Paternal Grandmother Cancer Sister Cancer Social History Social History Household Members: Spouse Housing: Apartment Are you a primary care clinician to a significant other at home: No Do you presently have visiting nurse or other home services: No Alcohol intake: never Patient Tobacco Use Status: Former Tobacco user Smoked in Last 30 Days: No Use of substances other than those prescribed or required for medical reasons: Yes Substance Use Type: Marijuana Advance Directives: No Advance Directives Information Provided: No service: No Current occupational status: disabled Physical Exam ED Vital Signs: Vital Signs - 24 hr 08/02/22 06:23 08/02/22 08:14 08/02/22 09:53 Temperature 97.5 F 98.3 F 98.0 F Pulse Rate 78 61 59 Respiratory Rate 16 20 16 Blood Pressure 139/97 H 147/75 H 156/76 H Pulse Oximetry 98 98 98 Oxygen Delivery Method Room Air Room Air Room Air 08/02/22 11:44 Temperature Pulse Rate 61 Respiratory Rate 18 Blood Pressure 147/81 H Pulse Oximetry 98 Oxygen Delivery Method Room Air BMI result Body Mass Index 30.6 Vital signs have been reviewed as appeared to be correct. Blood pressure normal. Heart rate normal. Respiration rate normal. Temperature normal. Oxygen saturation normal. Appearance: Alert. Oriented X3. No acute distress. Head: Normal external exam. Normocephalic. Atraumatic. No Miller signs noted. No raccoon eyes noted Eyes: PERRLA. EOMI. Conjunctiva and sclera normal. Eyelids normal. ENT: TM's Normal. Pharynx normal. Uvula midline. Moist mucous membranes. No trismus noted. No drooling noted. No muffled voice noted. Neck: Normal inspection. Neck supple. FROM. No adenopathy. Thyroid Normal. No meningeal signs. No neck mass noted. CVS: Normal heart rate and rhythm. Heart sound normal. No murmurs noted. Pulses normal throughout. Respiratory: No respiratory distress. Painless inspiration. Breath sounds normal. No wheezes/rales/rhonchi noted. Chest nontender. No accessory muscle usage noted or decreased air movement noted. Abdomen: Soft and nontender. Bowel sounds normal in all 4 quadrants. No distention noted. No organomegaly noted. No visible injury noted. Back: No CVA tenderness. Full range of motion noted. Skin: Skin warm and dry. Normal skin color. Normal skin turgor. No rashes/lesions/lacerations noted. Extremities: No lower extremity edema. Extremities exhibit normal range of motion. Extremities nontender. Neuro: Oriented X 3. Cranial nerve exam: II-XII are grossly intact No motor deficit. No sensory deficit. Reflexes normal. Course Course Course Narrative: Generalized body ache, unremarkable blood workup and CT of the abdomen and pelvis. Medications Administered Discontinued Medications Generic Name Dose Route Start Last Admin Trade Name Freq PRN Reason Stop Dose Admin Sodium Chloride 1,000 mls @ 999 mls/hr 08/02/22 07:53 08/02/22 10:24 Ns IV 08/02/22 08:53 Infused .Q1H1M ONE Infusion Medical Decision Making Differential Diagnosis Differential Diagnoses: The differential diagnosis associated with the presentation includes (Abdominal pain, fibromyalgia, electrolyte disturbance, dehydration been) Lab Data MDM Lab Attestation statement: I reviewed the patient's lab results. 08/02/22 08:12 08/02/22 09:16 Labs: Lab Results 08/02/22 08/02/22 08/02/22 Range/Units 08:12 08:12 08:12 WBC 7.8 (4.8-10.8) X10*3/uL RBC 4.65 (4.20-5.50) X10*6/uL Hgb 13.5 (12.0-16.0) g/dl Hct 42.8 (37.0-47.0) % MCV 92.0 (80.0-98.0) fL MCH 29.0 (27.0-33.0) pg MCHC 31.5 (31.0-35.0) g/dl RDW 12.7 (11.0-16.0) % Plt Count 373 (160-400) X10*3/uL MPV 9.4 (9.4-12.3) fL Immature Gran % (Auto) 0.4 (0.0-0.4) % Neut % (Auto) 59.7 (45-73) % Lymph % (Auto) 29.6 (20-40) % [place] % (Auto) 6.7 (2-11) % Eos % (Auto) 2.7 (0-4) % Baso % (Auto) 0.9 (0-2) % Lymph # (Auto) 2.3 (1.2-4.9) X10*3/uL [place] # (Auto) 0.5 (0.1-1.2) X10*3/uL Eos # (Auto) 0.2 (0.0-0.4) X10*3/uL Baso # (Auto) 0.1 (0.0-0.2) X10*3/uL Abs Immat Gran (auto) 0.03 (0.00-0.03) X10*3/uL Absolute Neuts (auto) 4.6 (2.0-8.3) x10*3/uL Absolute Nucleated RBC 0.000 (0.0-0.012) X10*3/uL Nucleated RBC % (auto) 0.0 (0.0-0.2) /100WBC Sodium (135-145) mmol/L Potassium (3.3-5.1) mmol/L Chloride (96-108) mmol/L Carbon Dioxide (22-29) mmol/L Anion Gap (12-20) BUN (9-16) mg/dL Creatinine (0.5-1.4) mg/dL Estim Creat Clear Calc Estimated GFR Random Glucose (60-115) mg/dL Calcium (8.4-10.2) mg/dL Total Bilirubin (0.0-1.0) mg/dL Direct Bilirubin (0.0-0.5) mg/dL AST (5-31) U/L ALT (0-31) U/L Alkaline Phosphatase (39-117) U/L Troponin I High Sens < 3.5 (<3.5-17.0) ng/L B-Natriuretic Peptide 35 (<100) pg/mL Total Protein (6.5-8.0) g/dL Albumin (3.5-5.0) g/dL Lipase (8-78) U/L Urine Color Urine Appearance Urine pH (5.0-9.0) Ur Specific [place] (1.005-1.025) Urine Protein (Neg-Trace) mg/dL Urine Glucose (UA) (Negative) mg/dL Urine Ketones (Negative) mg/dL Urine Blood (Negative) Urine Nitrite (Negative) Ur Leukocyte Esterase (Negative) Urine RBC (0-2) /HPF Urine WBC (0-5) /HPF Ur Squamous Epith Cells (0-2) /HPF Urine Bacteria (None Seen) Hyaline Casts (0-2) /LPF COVID-19 (DELL) (Negative) COVID-19 Clin Com Influenza Type A (PCR) (Negative) Influenza Type B (PCR) (Negative) RSV RNA Qual (PCR) (Negative) SARS-CoV-2 RNA (RT-PCR) (Negative) 08/02/22 08/02/22 08/02/22 Range/Units 08:13 08:13 09:16 WBC (4.8-10.8) X10*3/uL RBC (4.20-5.50) X10*6/uL Hgb (12.0-16.0) g/dl Hct (37.0-47.0) % MCV (80.0-98.0) fL MCH (27.0-33.0) pg MCHC (31.0-35.0) g/dl RDW (11.0-16.0) % Plt Count (160-400) X10*3/uL MPV (9.4-12.3) fL Immature Gran % (Auto) (0.0-0.4) % Neut % (Auto) (45-73) % Lymph % (Auto) (20-40) % [place] % (Auto) (2-11) % Eos % (Auto) (0-4) % Baso % (Auto) (0-2) % Lymph # (Auto) (1.2-4.9) X10*3/uL [place] # (Auto) (0.1-1.2) X10*3/uL Eos # (Auto) (0.0-0.4) X10*3/uL Baso # (Auto) (0.0-0.2) X10*3/uL Abs Immat Gran (auto) (0.00-0.03) X10*3/uL Absolute Neuts (auto) (2.0-8.3) x10*3/uL Absolute Nucleated RBC (0.0-0.012) X10*3/uL Nucleated RBC % (auto) (0.0-0.2) /100WBC Sodium 141 (135-145) mmol/L Potassium 4.8 (3.3-5.1) mmol/L Chloride 109 H (96-108) mmol/L Carbon Dioxide 25 (22-29) mmol/L Anion Gap 12 (12-20) BUN 14 (9-16) mg/dL Creatinine 0.86 (0.5-1.4) mg/dL Estim Creat Clear Calc 62.9 Estimated GFR > 60 Random Glucose 103 (60-115) mg/dL Calcium 9.2 (8.4-10.2) mg/dL Total Bilirubin 0.5 (0.0-1.0) mg/dL Direct Bilirubin < 0.2 (0.0-0.5) mg/dL AST 31 (5-31) U/L ALT 25 (0-31) U/L Alkaline Phosphatase 110 (39-117) U/L Troponin I High Sens (<3.5-17.0) ng/L B-Natriuretic Peptide (<100) pg/mL Total Protein 7.2 (6.5-8.0) g/dL Albumin 4.4 (3.5-5.0) g/dL Lipase 24 (8-78) U/L Urine Color Urine Appearance Urine pH (5.0-9.0) Ur Specific [place] (1.005-1.025) Urine Protein (Neg-Trace) mg/dL Urine Glucose (UA) (Negative) mg/dL Urine Ketones (Negative) mg/dL Urine Blood (Negative) Urine Nitrite (Negative) Ur Leukocyte Esterase (Negative) Urine RBC (0-2) /HPF Urine WBC (0-5) /HPF Ur Squamous Epith Cells (0-2) /HPF Urine Bacteria (None Seen) Hyaline Casts (0-2) /LPF COVID-19 (DELL) Negative (Negative) COVID-19 Clin Com See Note Influenza Type A (PCR) NEGATIVE (Negative) Influenza Type B (PCR) NEGATIVE (Negative) RSV RNA Qual (PCR) NEGATIVE (Negative) SARS-CoV-2 RNA (RT-PCR) NEGATIVE (Negative) 08/02/22 Range/Units 09:16 WBC (4.8-10.8) X10*3/uL RBC (4.20-5.50) X10*6/uL Hgb (12.0-16.0) g/dl Hct (37.0-47.0) % MCV (80.0-98.0) fL MCH (27.0-33.0) pg MCHC (31.0-35.0) g/dl RDW (11.0-16.0) % Plt Count (160-400) X10*3/uL MPV (9.4-12.3) fL Immature Gran % (Auto) (0.0-0.4) % Neut % (Auto) (45-73) % Lymph % (Auto) (20-40) % [place] % (Auto) (2-11) % Eos % (Auto) (0-4) % Baso % (Auto) (0-2) % Lymph # (Auto) (1.2-4.9) X10*3/uL [place] # (Auto) (0.1-1.2) X10*3/uL Eos # (Auto) (0.0-0.4) X10*3/uL Baso # (Auto) (0.0-0.2) X10*3/uL Abs Immat Gran (auto) (0.00-0.03) X10*3/uL Absolute Neuts (auto) (2.0-8.3) x10*3/uL Absolute Nucleated RBC (0.0-0.012) X10*3/uL Nucleated RBC % (auto) (0.0-0.2) /100WBC Sodium (135-145) mmol/L Potassium (3.3-5.1) mmol/L Chloride (96-108) mmol/L Carbon Dioxide (22-29) mmol/L Anion Gap (12-20) BUN (9-16) mg/dL Creatinine (0.5-1.4) mg/dL Estim Creat Clear Calc Estimated GFR Random Glucose (60-115) mg/dL Calcium (8.4-10.2) mg/dL Total Bilirubin (0.0-1.0) mg/dL Direct Bilirubin (0.0-0.5) mg/dL AST (5-31) U/L ALT (0-31) U/L Alkaline Phosphatase (39-117) U/L Troponin I High Sens (<3.5-17.0) ng/L B-Natriuretic Peptide (<100) pg/mL Total Protein (6.5-8.0) g/dL Albumin (3.5-5.0) g/dL Lipase (8-78) U/L Urine Color Yellow Urine Appearance Clear Urine pH 6.0 (5.0-9.0) Ur Specific [place] 1.015 (1.005-1.025) Urine Protein Trace (Neg-Trace) mg/dL Urine Glucose (UA) Negative (Negative) mg/dL Urine Ketones Negative (Negative) mg/dL Urine Blood Trace H (Negative) Urine Nitrite Positive H (Negative) Ur Leukocyte Esterase Negative (Negative) Urine RBC 0-2 (0-2) /HPF Urine WBC 0-5 (0-5) /HPF Ur Squamous Epith Cells 0-2 (0-2) /HPF Urine Bacteria 4+ (None Seen) Hyaline Casts 0-2 (0-2) /LPF COVID-19 (DELL) (Negative) COVID-19 Clin Com Influenza Type A (PCR) (Negative) Influenza Type B (PCR) (Negative) RSV RNA Qual (PCR) (Negative) SARS-CoV-2 RNA (RT-PCR) (Negative) Independent Interpretation I performed an independent interpretation of an: CT Scan (Abdomen and pelvis: No acute pathology.) Radiology Impression Discussion of test interpretation with radiology: I have reviewed the radiologist's reading. Discharge Plan Discharge Clinical Impression: Generalized pain Patient Disposition: Home, Self-Care Instructions: Musculoskeletal Pain (ED) Prescriptions: No Action acetaminophen 325 mg tablet 2 tab PO Q6H PRN (Reason: severe pain) cyanocobalamin (vitamin B-12) 100 mcg tablet 1 tab PO DAILY atorvastatin 10 mg tablet 1 tab PO DAILY clonazepam 2 mg tablet 1 tab PO BID divalproex 125 mg tablet,delayed release (DR/EC) 4 tab PO Q12H omeprazole 20 mg capsule,delayed release(DR/EC) 1 cap PO DAILY albuterol sulfate [ProAir HFA] 90 mcg/actuation HFA aerosol inhaler 2 puff PO Q4H PRN (Reason: dyspnea) ziprasidone HCl 60 mg capsule 1 cap PO BID loratadine 10 mg tablet 1 tab PO DAILY ibuprofen 600 mg tablet 600 mg PO Q6H PRN (Reason: pain) Qty: 30 0RF ondansetron 4 mg tablet,disintegrating 4 mg PO Q8H PRN (Reason: nausea and vomiting) Qty: 20 0RF Referrals: Valentine Rodriguez MD [Primary Care Provider] - Stand Alone Forms: Work/School Release
[2022-08-02 08:14] VITALS: BP 147/75; PULSE 61; RESP 20; TEMP 36.8; O2SAT 98
[2022-08-02 08:16] LABS: MANUAL DIFF FLAG NO
[2022-08-02] MEDS: 0.9 % Sodium Chloride 1,000 ML 999 ML IV (08:20)
[2022-08-02 08:24] LABS: Basophils Absolute Auto 0.1 X10*3/uL (0.0-0.2); Basophils Percent Auto 0.9 % (0-2); Eosinophils Absolute Auto 0.2 X10*3/uL (0.0-0.4); Eosinophils Percent Auto 2.7 % (0-4); Hematocrit 42.8 % (37.0-47.0); Hemoglobin 13.5 g/dl (12.0-16.0); Imm Gran Abs Auto 0.03 X10*3/uL (0.00-0.03); Imm Gran Pct Auto 0.4 % (0.0-0.4); Lymphocytes Absolute Auto 2.3 X10*3/uL (1.2-4.9); Lymphocytes Percent Auto 29.6 % (20-40); Mean Corpuscular HGB Conc 31.5 g/dl (31.0-35.0); Mean Platelet Volume 9.4 fL (9.4-12.3); Monocytes Absolute Auto 0.5 X10*3/uL (0.1-1.2); Monocytes Percent Auto 6.7 % (2-11); Neutrophils Absolute Auto 4.6 x10*3/uL (2.0-8.3); Neutrophils Percent Auto 59.7 % (45-73); Platelet Count 373 X10*3/uL (160-400); Red Blood Count 4.65 X10*6/uL (4.20-5.50); Red Cell Distribution Width 12.7 % (11.0-16.0); White Blood Count 7.8 X10*3/uL (4.8-10.8)
[2022-08-02 08:33] LABS: COVID-19 Test Negative (Negative); IDNOW Serial# 16C4AD1C
[2022-08-02 08:42] LABS: B Type Natriuretic Peptide 35 pg/mL (<100)
[2022-08-02 08:48] LABS: Troponin-I High Sensitivity < 3.5 ng/L (<3.5-17.0)
[2022-08-02 09:19] LABS: Influenza A PCR NEGATIVE (Negative); Influenza B PCR NEGATIVE (Negative); Resp Syncy Virus RNA Qual PCR NEGATIVE (Negative); SARS COV2 PCR INHOUSE NEGATIVE (Negative)
[2022-08-02 09:24] LABS: Appearance Urine Clear; Color Urine Yellow; Glucose Urine UA Negative (Negative); Leukocyte Esterase Urine Negative (Negative); Nitrite Urine Positive (Negative); Specific Gravity - Urine 1.015 (1.005-1.025); UMIC TRIGGER UACC YES; Urine Blood Trace (Negative); Urine Ketones Negative (Negative); Urine Protein Trace mg/dL (Neg-Trace)
[2022-08-02 09:26] LABS: Bacteria Urine 4+ (None Seen); Hyaline Casts Urine 0-2 /LPF (0-2); RBC Urine 0-2 /HPF (0-2); Squamous Epithelial Cell Urine 0-2 /HPF (0-2); UACC Culture Trigger YES; WBC Urine 0-5 /HPF (0-5)
[2022-08-02 09:37] LABS: Alanine Aminotransferase 25 U/L (0-31); Albumin Level 4.4 g/dL (3.5-5.0); Alkaline Phosphatase 110 U/L (39-117); Anion Gap 12 (12-20); Aspartate Amino Transferase 31 U/L (5-31); Bilirubin Direct < 0.2 mg/dL (0.0-0.5); Bilirubin Total 0.5 mg/dL (0.0-1.0); Blood Urea Nitrogen 14 mg/dL (9-16); Calcium 9.2 mg/dL (8.4-10.2); Carbon Dioxide 25 mmol/L (22-29); Chloride 109 mmol/L (96-108); Creatinine Clr Calc Pharmacy 62.9; Estimated Glomerular Filt Rate > 60; Glucose Random 103 mg/dL (60-115); Lipase 24 U/L (8-78); Potassium 4.8 mmol/L (3.3-5.1); Sodium 141 mmol/L (135-145); Total Protein 7.2 g/dL (6.5-8.0)
[2022-08-02 09:53] VITALS: BP 156/76; PULSE 59; RESP 16; TEMP 36.7; O2SAT 98
[2022-08-02 11:44] VITALS: BP 147/81; PULSE 61; RESP 18; O2SAT 98
== END 2022-08-02 12:21 | disposition home or self-care (01) ==
PROVIDERS: Emergency Provider Emergency Medicine; PCP Family Medicine
DX: R52 Pain, unspecified (principal); Z20.822 Contact with and (suspected) exposure to COVID-19; Z20.828 Contact with and (suspected) exposure to other viral communicable diseases; M79.7 Fibromyalgia; F12.90 Cannabis use, unspecified, uncomplicated; Z85.3 Personal history of malignant neoplasm of breast; Z87.891 Personal history of nicotine dependence; Z79.02 Long term (current) use of antithrombotics/antiplatelets; Z79.899 Other long term (current) drug therapy
CPT/HCPCS: 0241U; 71045; 74176; 80048; 80076; 81001; 83690; 83880; 84484; 85025; 87086; 87088; 87186; 87635; 93005; 99284; 99285

== ENCOUNTER → 2022-11-03 11:12 | Outpatient (BNVA) | payer MEDICAID, SELFPAY | PROVIDERS: PCP Family Medicine; Visit Provider Surgery | DX: Z12.11 Encounter for screening for malignant neoplasm of colon (principal); Z85.3 Personal history of malignant neoplasm of breast | CPT/HCPCS: 99202 ==

== ENCOUNTER → 2022-11-05 09:47 | Outpatient (BNVA) | payer MEDICAID, SELFPAY | PROVIDERS: PCP Family Medicine; Visit Provider Surgery | DX: Z31.438 Encounter for other genetic testing of female for procreative management (principal) | CPT/HCPCS: 99211 ==

== ENCOUNTER 2022-12-16 07:48 | Day surgery (SDC) | payer MEDICAID, SELFPAY ==
[2022-12-12 13:08] VITALS: BMI 29.4
--- NOTE | 2022-12-15 09:02 | HO.ANESPROP2 ---
HPI - Anesthesia Eval Consult details Narrative: 62yo F for Colonoscopy, poss polypectomy PMFSH Active Problems Active Problems: All Active Problems (Updated 11/03/22 @ 11:38 by Cyrus Warner MD) History of breast cancer (Acute) Colon cancer screening (Acute) Generalized pain (Acute) History of solitary pulmonary nodule (Acute) Triple negative malignant neoplasm of breast (Acute) Past Medical History Medical History (Updated 11/03/22 @ 11:38 by Cyrus Warner MD) Anxiety Arthritis Asthma Bipolar 1 disorder Breast cancer Chronic headaches Colon cancer screening Fibromyalgia History of breast cancer Osteoporosis Family History Family History Father Cancer Paternal Grandmother Cancer Sister Cancer Surgical History Surgical History History of modified radical mastectomy History of removal of both ovaries Social History Social History Household Members: Spouse Housing: Apartment Are you a primary laboratory animal care veterinarian to a significant other at home: No Do you presently have visiting nurse or other home services: No Alcohol intake: never Patient Tobacco Use Status: Former Tobacco user Substance Use Type: Marijuana service: No Current occupational status: disabled Meds Allergies Allergy/AdvReac Type Severity Reaction Status Date / Time No Known Allergies Allergy Verified 11/03/22 11:18 [No Known Allergies*] Home Medications Medication Instructions Recorded Confirmed Last Taken Type acetaminophen 325 mg tablet 2 tab PO Q6H PRN severe pain 12/13/20 11/03/22 Unknown History albuterol sulfate 90 mcg/actuation 2 puff PO Q4H PRN dyspnea 12/13/20 11/03/22 Unknown History aerosol inhaler (ProAir HFA) atorvastatin 10 mg tablet 1 tab PO DAILY 12/13/20 11/03/22 Unknown History clonazepam 2 mg tablet 1 tab PO BID anxiety 12/13/20 11/03/22 Unknown History cyanocobalamin (vitamin B-12) 100 1 tab PO DAILY 12/13/20 11/03/22 Unknown History mcg tablet divalproex 125 mg tablet,delayed 4 tab PO Q12H 12/13/20 11/03/22 Unknown History release loratadine 10 mg tablet 1 tab PO DAILY 12/13/20 11/03/22 Unknown History omeprazole 20 mg capsule,delayed 1 cap PO DAILY 12/13/20 11/03/22 Unknown History release ziprasidone HCl 60 mg capsule 1 cap PO BID 12/13/20 11/03/22 Unknown History atenolol 25 mg tablet 25 mg PO DAILY 11/03/22 11/03/22 Unknown History cholecalciferol (vitamin D3) 25 25 mcg PO DAILY 11/03/22 11/03/22 Unknown History mcg (1,000 unit) capsule (Vitamin D3) cyclobenzaprine 10 mg tablet 10 mg PO BEDTIME PRN muscle pain 11/03/22 11/03/22 Unknown History fluticasone propionate 44 2 puff inhalation BID 11/03/22 11/03/22 Unknown History mcg/actuation HFA aerosol inhaler (Flovent HFA) lisinopril 10 mg tablet 10 mg PO DAILY 11/03/22 11/03/22 Unknown History mirtazapine 45 mg tablet 45 mg PO BEDTIME 11/03/22 11/03/22 Unknown History riboflavin (vitamin B2) 100 mg 100 mg PO DAILY 11/03/22 11/03/22 Unknown History tablet (Vitamin B-2) Exam Exam Date and Time: December 15, 2022 0902 Height,Weight and Vital Signs: Height 5 ft 2 in Weight 73.028 kg Pertinent Lab Results Pertinent Lab Results: Laboratory Tests 08/02/22 08/02/22 08:12 09:16 WBC 7.8 Hgb 13.5 Hct 42.8 Plt Count 373 Sodium 141 Potassium 4.8 Chloride 109 H Carbon Dioxide 25 BUN 14 Creatinine 0.86 Narrative Narrative: EKG 07/2022 Vent. Rate : 062 BPM ? ? Atrial Rate : 062 BPM ?? P-R Int : 170 ms? QRS Dur : 088 ms ? ? QT Int : 426 ms ? ? ? P-R-T Axes : 066 059 066 degrees ?? QTc Int : 432 ms ? Normal sinus rhythm Normal ECG When compared with ECG of 31-JUL-2020 07:44, No significant change was found Assessment and Plan Assessment Anesthesia Assessment: Chart Reviewed
--- NOTE | 2022-12-16 07:46 | HO.ANESPROP2 ---
ON LICENSE OF [facility] Active Problems Active Problems: All Active Problems (Updated 11/03/22 @ 11:38 by Cyrus Warner MD) History of breast cancer (Acute) Colon cancer screening (Acute) Generalized pain (Acute) History of solitary pulmonary nodule (Acute) Triple negative malignant neoplasm of breast (Acute) Past Medical History Medical History Anxiety Arthritis Asthma Bipolar 1 disorder Breast cancer Chronic headaches Colon cancer screening Fibromyalgia History of breast cancer Osteoporosis Family History Family History Father Cancer Paternal Grandmother Cancer Sister Cancer Family history of problems with anesthesia: No Surgical History Surgical History History of modified radical mastectomy History of removal of both ovaries History of Problems with Anesthesia: No Social History Social History Household Members: Spouse Housing: Apartment Are you a primary care director to a significant other at home: No Do you presently have visiting nurse or other home services: No Alcohol intake: never Patient Tobacco Use Status: Former Tobacco user Substance Use Type: Marijuana service: No Current occupational status: disabled Meds Allergies Allergy/AdvReac Type Severity Reaction Status Date / Time No Known Allergies Allergy Verified 11/03/22 11:18 [No Known Allergies*] Active Medications: Current Medications Albuterol Sulfate (Albuterol Sulfate (0.083%) 2.5 Mg/3 Ml Vial.Neb) 2.5 mg INHALE ONCE PRN PRN Reason: Shortness of Breath/Wheezing Lactated Ringer's (Lr) 1,000 mls @ 100 mls/hr IVCONT .Q10H [facility] Home Medications Medication Instructions Recorded Confirmed Last Taken Type acetaminophen 325 mg tablet 2 tab PO Q6H PRN severe pain 12/13/20 11/03/22 Unknown History albuterol sulfate 90 mcg/actuation 2 puff PO Q4H PRN dyspnea 12/13/20 11/03/22 Unknown History aerosol inhaler (ProAir HFA) atorvastatin 10 mg tablet 1 tab PO DAILY 12/13/20 11/03/22 Unknown History clonazepam 2 mg tablet 1 tab PO BID anxiety 12/13/20 11/03/22 Unknown History cyanocobalamin (vitamin B-12) 100 1 tab PO DAILY 12/13/20 11/03/22 Unknown History mcg tablet divalproex 125 mg tablet,delayed 4 tab PO Q12H 12/13/20 11/03/22 Unknown History release loratadine 10 mg tablet 1 tab PO DAILY 12/13/20 11/03/22 Unknown History omeprazole 20 mg capsule,delayed 1 cap PO DAILY 12/13/20 11/03/22 Unknown History release ziprasidone HCl 60 mg capsule 1 cap PO BID 12/13/20 11/03/22 Unknown History atenolol 25 mg tablet 25 mg PO DAILY 11/03/22 11/03/22 Unknown History cholecalciferol (vitamin D3) 25 25 mcg PO DAILY 11/03/22 11/03/22 Unknown History mcg (1,000 unit) capsule (Vitamin D3) cyclobenzaprine 10 mg tablet 10 mg PO BEDTIME PRN muscle pain 11/03/22 11/03/22 Unknown History fluticasone propionate 44 2 puff inhalation BID 11/03/22 11/03/22 Unknown History mcg/actuation HFA aerosol inhaler (Flovent HFA) lisinopril 10 mg tablet 10 mg PO DAILY 11/03/22 11/03/22 Unknown History mirtazapine 45 mg tablet 45 mg PO BEDTIME 11/03/22 11/03/22 Unknown History riboflavin (vitamin B2) 100 mg 100 mg PO DAILY 11/03/22 11/03/22 Unknown History tablet (Vitamin B-2) Exam Exam Date and Time: December 16, 2022 0746 Height,Weight and Vital Signs: Height 5 ft 2 in Weight 73.028 kg Airway Mallampati Class: II TM Dist: >3cm Neck ROM: Full Heart: RRR Lungs: RRR Assessment and Plan Assessment Anesthesia Assessment: Anesthesia Plan Discussed Final Anesthetic Review Family History of Problems with Anesthesia: No History of Problems with Anesthesia: No NPO: Yes ASA Class: II Final Preanesthetic Review: Meds/Allgs Chart Reviewed, Consent Obtained/Reviewed and Anes Risks/Benef Reviewed Patient Risk: Low Procedure Risk: Low Anesthetic Plan Anesthetic Plan: MAC: Disposition: Standard PACU
--- NOTE | 2022-12-16 08:06 | P.HPSUR_ITS ---
Pre-Procedural Eval Section A Date of Service: 12/16/22 Section B Chief Complaint: Screening,Personal history of malignant neoplasm Details of Present Illness: for screening colonoscopy today, no GI complaints Relevant Family History (Specify if Yes): No Relevant Social History: None Present Medications: see Short Stay Collaborative assessment Medical History: Significant History (hx of breast cancer) Allergies: Allergies Allergy/AdvReac Type Severity Reaction Status Date / Time No Known Allergies Allergy Verified 11/03/22 11:18 [No Known Allergies*] Review of Systems Sugical H&P ROS: Negative: Constitution, Cardiovascular, Respiratory, Neurolo gical, Psychiatric, Hem-Onc, Allergic/Immunologic, Gastrointestinal, Genitourinary, Musculoskeletal, Integumentary, Endocrine and Eyes/Ears/Nose/Throat Exam Surgical H&P Exam: Normal: HEENT, Normal: Heart, Normal: Lungs, Normal: Extremities, Normal: Abdomen, Normal: Skin and Normal: Neurological Plan Diagnosis/Plan: Unchanged I have reviewed the history and physical and performed a pertinent physical examination on my patient. No changes have occurred unless specified. Time Spent With Patient Time: Total time managing care of this patient today ____ minutes.
[2022-12-16 08:07] VITALS: BP 180/88; PULSE 72; RESP 16; TEMP 36.7; O2SAT 98
[2022-12-16] MEDS: Lactated Ringers 1,000 ML 100 ML IVCONT (08:13)
--- NOTE | 2022-12-16 09:13 | P.OP_ITS ---
Operative Note Operative Note Date of Service: 12/16/22 Narrative: Preop diagnosis: Colon cancer screening Postop diagnosis: 1. Polyp, 1 cm, at level 60 cm, removed with hot snare; tattoo marking with Endoink done 2. small polyp about 2-3 mm just outside the cecum in the right colon 3. sigmoid diverticulosis 4. internal external hemorrhoids Procedure: Colonoscopy with polypectomy using hot snare Surgeon: Cyrus Warner MD The patient is a 62 year female here for screening colonoscopy. She understood the technique of the procedure. She was aware of the risks, benefits, and alternatives. The patient was brought to the operating room and placed in left lateral decubitus position under monitored anesthesia care. A surgical time-out was done. A full digital rectal exam was done and this did not reveal any significant anal lesions. The tip of the Olympus colonoscope was gently introduced through the anal orifice advanced with insufflation all the way to the cecum. The cecum was intubated. The cecum was identified by visualization of the ileocecal valve as well as the appendiceal orifice. The cecal mucosa was unremarkable. The scope was gradually withdrawn with careful examination of the entire colonic mucosa being done with scope withdrawal. The patient had segments of colon with thin stools. There was note of a small 2-3 mm polyp just outside the cecum in the right colo n. This was removed using cold forceps. At level of 60 cm, there was note of a polyp, about 1 cm in size. There was removed using hot snare. I also marked the area with Endoink. There was note of good hemostasis of the polypectomy site. we difficulty retrieving the specimen because of the size but were eventually able to retrieve the using the endo basket. I reinserted the scope and re-examined the distal colon. There was note of some occasional diverticulosis in the sigmoid. The rectum was reached and there were no lesions seen. There was note of internal and external hemorrhoids in the anal canal. The scope was then withdrawn completely with desufflation The patient tolerated procedure well. There were no immediate complications. We will await for the path report. In view of the size of the polyp, I would recommend another colonoscopy within the next year.
[2022-12-16 09:22] VITALS: BP 181/84; PULSE 75; RESP 16; TEMP 36.1; O2SAT 96
[2022-12-16 09:37] VITALS: BP 191/75; PULSE 55; RESP 20; TEMP 36.6; O2SAT 98
--- NOTE | 2022-12-16 09:57 | HO.POSTANES ---
Post Anesthesia Evaluation Post Anesthesia Evaluation Date of Service: 12/16/22 Vital Signs: Vital Signs Temp Pulse Resp BP Pulse Ox O2 Del Method 12/16/22 09:37 97.8 F 55 20 191/75 H 98 Room Air 12/16/22 09:22 97 F 75 16 181/84 H 96 Room Air 12/16/22 08:07 98.1 F 72 16 180/88 H 98 Room Air Anesthesia: Monitored Mental Status: Awake Pain Control: Satisfactory Nausea/Vomiting: None Hydration: Adequate Anesthesia-Related Issues: No Anes. Related Issues
== END 2022-12-16 10:01 | disposition home or self-care (01) ==
PROVIDERS: PCP Family Medicine; Visit Provider Surgery
PROC: 0DJD8ZZ Inspection of Lower Intestinal Tract, Via Natural or Artificial Opening Endoscopic (ICD-10-PCS; CPT 45378; principal; 2022-12-16 08:30)
DX: Z12.11 Encounter for screening for malignant neoplasm of colon (principal); Z86.010 Personal history of colon polyps; D12.0 Benign neoplasm of cecum; D12.4 Benign neoplasm of descending colon; K57.30 Diverticulosis of large intestine without perforation or abscess without bleeding; K59.09 Other constipation; K64.8 Other hemorrhoids; K64.4 Residual hemorrhoidal skin tags; Z85.3 Personal history of malignant neoplasm of breast; M79.7 Fibromyalgia; M81.0 Age-related osteoporosis without current pathological fracture; J45.909 Unspecified asthma, uncomplicated; Z79.51 Long term (current) use of inhaled steroids; Z79.899 Other long term (current) drug therapy; Z79.1 Long term (current) use of non-steroidal anti-inflammatories (NSAID); Z87.891 Personal history of nicotine dependence; F12.90 Cannabis use, unspecified, uncomplicated
CPT/HCPCS: 45385; 45380; 45381; 88305

== ENCOUNTER → 2022-12-16 07:48 | Outpatient (BNV) | payer MEDICAID, SELFPAY | PROVIDERS: PCP Family Medicine; Visit Provider Surgery | DX: Z12.11 Encounter for screening for malignant neoplasm of colon (principal); K57.30 Diverticulosis of large intestine without perforation or abscess without bleeding; K64.8 Other hemorrhoids; D12.0 Benign neoplasm of cecum | CPT/HCPCS: 45380; 45381; 45385 ==

== ENCOUNTER 2022-12-29 10:38 | Outpatient (AMB) | payer MEDICAID, SELFPAY ==
[2022-12-29 11:04] VITALS: BMI 30.2
--- NOTE | 2022-12-29 11:04 | MHC.OFFVIS ---
Intake Vital Signs 12/29/22 11:04 Height 5 ft 2 in Weight 165 lb BMI 30.2 Intake Visit Reasons: S/P colonoscopy & Genetic Results *HERE* Intake Note: This patient presents for a post-op assessment status post colonosocpy and genetic test results. Patient denies complaints at this time. Experimental Physicist Required: Yes Experimental Physicist Language: Molder Setter Name: [place] Information Interpreted: non-clinical & clinical Accompanied by: Self / Same As Patient Allergies No Known Allergies [No Known Allergies*] Allergy (Verified 12/29/22 11:05) Medication List - Last Reconciled 12/29/22 by Cyrus Warner MD acetaminophen 2 tabs PO Q6H PRN albuterol sulfate 90 mcg/actuation (ProAir HFA) 2 puffs PO Q4H PRN atenolol 25 mg PO DAILY atorvastatin 1 tab PO DAILY cholecalciferol (vitamin D3) (Vitamin D3) 25 mcg PO DAILY clonazepam 1 tab PO BID cyanocobalamin (vitamin B-12) 1 tab PO DAILY cyclobenzaprine 10 mg PO BEDTIME PRN divalproex 4 tabs PO Q12H fluticasone propionate 44 mcg/actuation (Flovent HFA) 2 puffs inhalation BID ibuprofen 600 mg PO Q6H PRN lisinopril 10 mg PO DAILY loratadine 1 tab PO DAILY mirtazapine 45 mg PO BEDTIME omeprazole 1 cap PO DAILY ondansetron 4 mg PO Q8H PRN riboflavin (vitamin B2) (Vitamin B-2) 100 mg PO DAILY sodium,potassium,mag sulfates 17.5-3.13-1.6 gram (Suprep Bowel Prep Kit) DILUTE; drink full amount early evening before AND next morning at least 2 hr before procedure; follow w 960 mL water PO ziprasidone HCl 1 cap PO BID HPI S/P colonoscopy & Genetic Results *HERE* HPI Details She had undergone colonoscopy for screening last 12/16/2022. She tolerated procedure well. She is here to discuss the findings. She also had undergone genetic testing and is here as well to discuss the report. Otherwise, she says she is doing well and denies any significant complaints. [facility] Medical History (Updated 12/29/22 @ 11:08 by Cyrus Warner MD) Anxiety Arthritis Asthma Bipolar 1 disorder BRCA positive Breast cancer Chronic headaches Colon cancer screening Fibromyalgia History of breast cancer HTN (hypertension) Osteoporosis Tubular adenoma of colon Surgical History History of modified radical mastectomy History of removal of both ovaries Family History Father Cancer Paternal Grandmother Cancer Sister Cancer Social History Household Members: Spouse Housing: Apartment Are you a primary medicare compliance auditor to a significant other at home: No Do you presently have visiting nurse or other home services: No Alcohol intake: never Patient Tobacco Use Status: Former Tobacco user Substance Use Type: Marijuana service: No Current occupational status: disabled Review of Systems Const Denies chills and Denies fever(s) Card Denies chest pain, Denies dyspnea and Denies dyspnea on exertion Resp Denies cough, Denies dyspnea and Denies dyspnea on exertion GI Denies hematochezia and Denies change in bowel habits Denies hematuria Musc Denies back pain and Denies limited range of motion Neuro Denies focal weakness and Denies convulsions Psych Denies depression and Denies mood swings Physical Exam Vital Signs: BMI result Body Mass Index 30.2 Const General: comfortable and no acute distress Orientation/consciousness: patient oriented x3 Neck Neck: Yes no lymphadenopathy Resp Auscultation: clear to auscultation bilaterally Cardio Rhythm: regular rhythm GI Palpation (GI): Soft to palpation, nontender and no guarding Neuro General: patient oriented x3 Assessment & Plan Assessment & Plan (1) Tubular adenoma of colon: Code(s): D12.6 - Benign neoplasm of colon, unspecified Plan: Status post colonoscopy last 12/16/2022. I removed 2 polyps, 1 in the cecum and 1 at level 60 cm. This were tubular adenomas. However, the polyp at level 60 cm was 1 cm in size. I am therefore recommending for her to undergo another colonoscopy in 1 year. I explained to his there and she says she understands. Her colonoscopy also shows diverticulosis as well as hemorrhoids. (2) BRCA positive: Code(s): Z15.01 - Genetic susceptibility to malignant neoplasm of breast; Z15.09 - Genetic susceptibility to other malignant neoplasm Plan: Her genetic testing shows that she is BRCA positive. This puts her at elevated risk for breast cancer, ovarian cancer as well as pancreatic cancer. She does have a personal history of cancer at age of 42. She says she had total mastectomy at that time and she says she had her ovaries removed. It appears that she had been previously tested for the BRCA gene and seems to have had prophylactic bilateral mastectomy, oophorectomy for risk reduction. She also says that she has been following Dr. Ramsey although it is does not seem like she has seen her in a while. It I therefore told her that she should follow-up with Dr. Ramsey especially because of this positive BRCA test. Furthermore, I emphasized to her that she should have regular annual MRI because her risk for pancreatic cancer. I will see her again in 1 year to do another colonoscopy. Coding Level of Care Code Est Pt Level 3 (34838) Diagnoses Tubular adenoma of colon D12.6 BRCA positive Z15.01; Z15.09
== END 2022-12-29 11:15 | disposition home or self-care (01) ==
PROVIDERS: PCP Family Medicine; Visit Provider Surgery
DX: D12.6 Benign neoplasm of colon, unspecified (principal); Z15.01 Genetic susceptibility to malignant neoplasm of breast; Z15.09 Genetic susceptibility to other malignant neoplasm
CPT/HCPCS: 99213

== ENCOUNTER → 2022-12-29 10:38 | Outpatient (BNVA) | payer MEDICAID, SELFPAY | PROVIDERS: PCP Family Medicine; Visit Provider Surgery | DX: D12.6 Benign neoplasm of colon, unspecified (principal); Z15.01 Genetic susceptibility to malignant neoplasm of breast; Z15.09 Genetic susceptibility to other malignant neoplasm | CPT/HCPCS: 99212 ==

== ENCOUNTER 2023-04-06 09:24 | Outpatient (REF) | payer MEDICAID, SELFPAY ==
--- NOTE | ~2023-04-06 | CT_ITS ---
EXAMINATION: CT CHEST SCREENING CLINICAL INFORMATION: Former smoker. Quit 14 years ago. 40 pack year history COMPARISON: Previous chest CT November 2021 TECHNIQUE: Multidetector volumetric CT imaging of the chest is performed without contrast using low dose technique. Additional 2D coronal and sagittal reformatted images and axial 3D maximum intensity projection (MIP) images are generated on the CT workstation. This CT examination was performed using dose optimization techniques as appropriate, variously including the following: *Automated exposure control *Adjustment of mA and/or kV according to patient size (this includes techniques or standardized protocols for targeted exams where dose is matched to indication/reason for exam; i.e. extremities or head) *Use of iterative reconstruction technique DLP: 50 mGy-cm FINDINGS: LUNGS: There is evidence of emphysema. There is mild biapical pleural and parenchymal scarring. There are small calcified pulmonary nodules. There is a small area of cystic and reticular change and calcification in the left lower lobe measuring 5 x 9 mm axial image 254 series 5. Attention on follow-up recommended. These findings are stable. There is subsegmental atelectasis in the inferior segment of the lingula. No endobronchial or endotracheal lesion. MEDIASTINUM: The mediastinum is normal. CORONARY ARTERY CALCIFICATION: None visualized on this study. PLEURA: There is no pleural effusion. No pleural mass or thickening. AXILLA: Surgical clips in the right axilla. UPPER ABDOMEN: Unremarkable OSSEOUS STRUCTURES: Mild degenerative changes of the spine CT/CT lung screening IMPRESSION: Emphysema. Stable small calcified pulmonary nodules, biapical pleural and parenchymal scarring and mixed cystic and reticular area in the left lower lobe. ASSESSMENT: Lung-RADS category 2: Benign RECOMMENDATION: Annual low-dose chest CT follow-up recommended
== END 2023-04-06 09:25 | disposition home or self-care (01) ==
LOC: HO.CT 09:24
PROVIDERS: Visit Provider Physician Assistant Medical
DX: Z12.2 Encounter for screening for malignant neoplasm of respiratory organs (principal); Z87.891 Personal history of nicotine dependence
CPT/HCPCS: 71271

== ENCOUNTER 2023-05-27 09:55 | Outpatient (REF) | payer MEDICAID, SELFPAY ==
[2023-05-27 13:04] LABS: Anion Gap 12 (12-20); Blood Urea Nitrogen 17 mg/dL (9-16); Calcium 9.9 mg/dL (8.4-10.2); Carbon Dioxide 26 mmol/L (22-29); Chloride 109 mmol/L (96-108); Estimated Glomerular Filt Rate > 60; Glucose Random 99 mg/dL (60-115); Potassium 4.5 mmol/L (3.3-5.1); Sodium 142 mmol/L (135-145)
== END 2023-05-27 09:56 | disposition home or self-care (01) ==
LOC: HO.HHCL 09:55
PROVIDERS: Referring Provider Nurse Practitioner Psychiatric/Mental Health; Visit Provider Family Medicine
DX: I10 Essential (primary) hypertension (principal); Z79.899 Other long term (current) drug therapy
CPT/HCPCS: 36415; 80048; 80053; 85025

== ENCOUNTER 2023-08-05 10:15 | Outpatient (REF) | payer MEDICAID, SELFPAY ==
[2023-08-05 11:36] LABS: C Reactive Protein 0.61 mg/dL (< or = 0.50)
[2023-08-05 12:09] LABS: Erythrocyte Sedimentation Rate 65 MM/HR (0-20)
[2023-08-06 04:19] LABS: Rheumatoid Factor < 13.0 IU/mL (<15.0)
[2023-08-06 13:08] LABS: Anti DNA DS Antibody 1 IU/mL
[2023-08-11 13:47] LABS: Anti Nuclear Antibody Screen NEGATIVE (NEGATIVE)
== END 2023-08-05 10:16 | disposition home or self-care (01) ==
LOC: HO.HHCL 10:15
PROVIDERS: Visit Provider Family Medicine
DX: M79.7 Fibromyalgia (principal)
CPT/HCPCS: 36415; 85652; 86038; 86140; 86225; 86431

== ENCOUNTER 2023-09-23 09:57 | Outpatient (AMB) | payer MEDICAID, SELFPAY ==
--- NOTE | 2023-09-23 10:13 | A.OFFVIS_ITS ---
Vital Signs 09/23/23 10:17 Height 5 ft 2 in Weight 161 lb BMI 29.4 BP 135/62 Blood Pressure Location Lt brachial Position Sitting Pulse 62 Intake Visit Reasons: one year recall colonoscopy Intake Note: This patient presents for a one year recall colonoscopy. Pt c/o; reports no complaints. Application Systems Administrator Required: No Accompanied by: Self / Same As Patient Allergies No Known Allergies [No Known Allergies*] Allergy (Verified 09/23/23 10:18) Medication List - Last Reconciled 09/23/23 by Cyrus Warner MD acetaminophen 2 tabs PO Q6H PRN albuterol sulfate 90 mcg/actuation (ProAir HFA) 2 puffs PO Q4H PRN atenolol 25 mg PO DAILY cholecalciferol (vitamin D3) (Vitamin D3) 25 mcg PO DAILY clonazepam 1 tab PO BID cyanocobalamin (vitamin B-12) 1 tab PO DAILY cyclobenzaprine 10 mg PO BEDTIME PRN fluticasone propionate 44 mcg/actuation (Flovent HFA) 2 puffs inhalation BID lisinopril 10 mg PO DAILY loratadine 1 tab PO DAILY mirtazapine 45 mg PO BEDTIME omeprazole 1 cap PO DAILY riboflavin (vitamin B2) (Vitamin B-2) 100 mg PO DAILY sodium,potassium,mag sulfates 17.5-3.13-1.6 gram (Suprep Bowel Prep Kit) DILUTE; drink full amount early evening before AND next morning at least 2 hr before procedure; follow w 960 mL water PO ziprasidone HCl 1 cap PO BID HPI HPI one year recall colonoscopy: Details: [age] year old female here for a follow-up colonoscopy. She had a colonoscopy last year and 2 adenomas were removed. One of the adenomas was 1 cm in size at level 60 cm. I had therefore recommended repeating the colonoscopy within 1 year because of the size of this adenoma. She currently denies significant complaints. She feels well overall. She denie s GI issues. She does have history of breast cancer. [facility] Medical History BRCA positive Tubular adenoma of colon HTN (hypertension) History of breast cancer Colon cancer screening Chronic headaches Asthma Breast cancer Osteoporosis Bipolar 1 disorder Anxiety Arthritis Fibromyalgia Surgical History History of removal of both ovaries History of modified radical mastectomy Family History Father Cancer Paternal Grandmother Cancer Sister Cancer Social History Household Members: Spouse Housing: Apartment Are you a primary primary care provider to a significant other at home: No Do you presently have visiting nurse or other home services: No Alcohol intake: never Patient Tobacco Use Status: Former Tobacco user Substance Use Type: Marijuana service: No Current occupational status: disabled Review of Systems Const Denies chills and Denies fever(s) Card Denies chest pain, Denies dyspnea and Denies dyspnea on exertion Resp Denies cough, Denies dyspnea and Denies dyspnea on exertion GI Denies hematochezia and Denies change in bowel habits Denies hematuria Musc Reports abnormal gait, Denies back pain and Reports limited range of motion Neuro Reports abnormal gait, Denies focal weakness and Denies convulsions Psych Denies depression and Denies mood swings Physical Exam Const Other: She walks with a limp because of leg pain General: comfortable and no acute distress Orientation/consciousness: patient oriented x3 Neck Neck: Yes no lymphadenopathy Resp Auscultation: clear to auscultation bilaterally Cardio Rhythm: regular rhythm GI Palpation (GI): Soft to palpation, nontender and no guarding Neuro General: patient oriented x3 Assessment & Plan Assessment & Plan (1) Tubular adenoma of colon: Code(s): D12.6 - Benign neoplasm of colon, unspecified Category: Medical Plan: Because of the large to adenomatous polyp removed last year at level 60 cm, I had recommended a close follow-up with a repeat colonoscopy. I reviewed with the technique of colonoscopy. I discussed the risks including but not limited to bleeding and perforation, as well as the benefits and alternatives. She had given consent. She is also being followed by Dr. Ramsey of Oncology for her history of breast cancer which was triple negative. Medications: New sodium,potassium,mag sulfates 17.5-3.13-1.6 gram (Suprep Bowel Prep Kit) DILUTE; drink full amount early evening before AND next morning at least 2 hr before procedure; follow w 960 mL water PO 354 mL 0RF Coding Level of Care Code Est Pt Level 3 (71358) Diagnoses Tubular adenoma of colon D12.6
[2023-09-23 10:17] VITALS: BP 135/62; PULSE 62; BMI 29.4
== END 2023-09-23 10:25 | disposition home or self-care (01) ==
PROVIDERS: PCP Family Medicine; Referring Provider Family Medicine; Visit Provider Surgery
DX: D12.6 Benign neoplasm of colon, unspecified (principal)
CPT/HCPCS: 99213

== ENCOUNTER → 2023-09-23 09:57 | Outpatient (BNVA) | payer MEDICAID, SELFPAY | PROVIDERS: PCP Family Medicine; Visit Provider Surgery | DX: D12.6 Benign neoplasm of colon, unspecified (principal) | CPT/HCPCS: 99212 ==

== ENCOUNTER 2023-12-18 07:35 | Day surgery (SDC) | payer MEDICAID, SELFPAY ==
[2023-12-16 12:47] VITALS: BMI 29.4
--- NOTE | 2023-12-16 13:14 | P.CONAN_ITS ---
Documented by User: Brie Gómez NP 12/16/23 13:14 HPI - Anesthesia Eval Consult details Narrative: 63yo F for Colonoscopy, possible Polypectomy PMFSH Active Problems Active Problems: All Active Problems BRCA positive (Acute) Tubular adenoma of colon (Acute) Triple negative malignant neoplasm of breast (Acute) History of solitary pulmonary nodule (Acute) Generalized pain (Acute) History of breast cancer (Acute) Colon cancer screening (Acute) Past Medical History Medical History BRCA positive Tubular adenoma of colon HTN (hypertension) History of breast cancer Colon cancer screening Chronic headaches Asthma Breast cancer Osteoporosis Bipolar 1 disorder Anxiety Arthritis Fibromyalgia Family History Family History Father Cancer Paternal Grandmother Cancer Sister Cancer Family history of problems with anesthesia: No Surgical History Surgical History History of removal of both ovaries History of modified radical mastectomy History of Problems with Anesthesia: No Social History Social History Household Members: Spouse Housing: Apartment Are you a primary personal caregiver to a significant other at home: No Do you presently have visiting nurse or other home services: No Alcohol intake: never Patient Tobacco Use Status: Former Tobacco user Substance Use Type: Marijuana Substance Use Frequency: Daily Are you DNR?: No Advance Directives: No Advance Directives Information Provided: Yes Nutrition Risks: No Nutritional Risk service: No Current occupational status: disabled Meds Allergies Allergy/AdvReac Type Severity Reaction Status Date / Time No Known Allergies Allergy Verified 12/18/23 08:56 [No Known Allergies*] Home Medications ?Medication ?Instructions ?Recorded ?Confirmed ?Last Taken ?Type acetaminophen 325 mg tablet 2 tab PO Q6H PRN severe pain 12/13/20 12/18/23 Unknown History albuterol sulfate 90 mcg/actuation 2 puff PO Q4H PRN dyspnea 12/13/20 12/18/23 Unknown History aerosol inhaler (ProAir HFA) clonazepam 2 mg tablet 1 tab PO BID anxiety 12/13/20 12/18/23 Unknown History cyanocobalamin (vitamin B-12) 100 1 tab PO DAILY 12/13/20 12/18/23 Unknown History mcg tablet loratadine 10 mg tablet 1 tab PO DAILY 12/13/20 12/18/23 Unknown History omeprazole 20 mg capsule,delayed 1 cap PO DAILY 12/13/20 12/18/23 Unknown History release ziprasidone HCl 60 mg capsule 1 cap PO BID 12/13/20 12/18/23 Unknown History atenolol 25 mg tablet 25 mg PO DAILY 11/03/22 12/18/23 12/18/23 History cholecalciferol (vitamin D3) 25 25 mcg PO DAILY 11/03/22 12/18/23 Unknown History mcg (1,000 unit) capsule (Vitamin D3) cyclobenzaprine 10 mg tablet 10 mg PO BEDTIME PRN muscle pain 11/03/22 12/18/23 Unknown History fluticasone propionate 44 2 puff inhalation BID 11/03/22 12/18/23 Unknown History mcg/actuation HFA aerosol inhaler (Flovent HFA) lisinopril 10 mg tablet 10 mg PO DAILY 11/03/22 12/18/23 Unknown History mirtazapine 45 mg tablet 45 mg PO BEDTIME 11/03/22 12/18/23 Unknown History riboflavin (vitamin B2) 100 mg 100 mg PO DAILY 11/03/22 12/18/23 Unknown History tablet (Vitamin B-2) Exam Height,Weight and Vital Signs: Height 5 ft 2 in Weight 73.028 kg Assessment and Plan Assessment Anesthesia Assessment: Chart Reviewed Final Anesthetic Review Family History of Problems with Anesthesia: No History of Problems with Anesthesia: No Documented by User: Steffanie Sinha MD 12/18/23 09:11 [facility] Past Medical History Medical History BRCA positive Tubular adenoma of colon HTN (hypertension) History of breast cancer Colon cancer screening Chronic headaches Asthma Breast cancer Osteoporosis Bipolar 1 disorder Anxiety Arthritis Fibromyalgia Family History Family History Father Cancer Paternal Grandmother Cancer Sister Cancer Surgical History Surgical History History of removal of both ovaries History of modified radical mastectomy Social History Social History Household Members: Spouse Housing: Apartment Are you a primary personal caregiver to a significant other at home: No Do you presently have visiting nurse or other home services: No Alcohol intake: never Patient Tobacco Use Status: Former Tobacco user Substance Use Type: Marijuana Substance Use Frequency: Daily Are you DNR?: No Advance Directives: No Advance Directives Information Provided: Yes Nutrition Risks: No Nutritional Risk service: No Current occupational status: disabled [employer] Allergies Allergy/AdvReac Type Severity Reaction Status Date / Time No Known Allergies Allergy Verified 12/18/23 08:56 [No Known Allergies*] Home Medications ?Medication ?Instructions ?Recorded ?Confirmed ?Last Taken ?Type acetaminophen 325 mg tablet 2 tab PO Q6H PRN severe pain 12/13/20 12/18/23 Unknown History albuterol sulfate 90 mcg/actuation 2 puff PO Q4H PRN dyspnea 12/13/20 12/18/23 Unknown History aerosol inhaler (ProAir HFA) clonazepam 2 mg tablet 1 tab PO BID anxiety 12/13/20 12/18/23 Unknown History cyanocobalamin (vitamin B-12) 100 1 tab PO DAILY 12/13/20 12/18/23 Unknown History mcg tablet loratadine 10 mg tablet 1 tab PO DAILY 12/13/20 12/18/23 Unknown History omeprazole 20 mg capsule,delayed 1 cap PO DAILY 12/13/20 12/18/23 Unknown History release ziprasidone HCl 60 mg capsule 1 cap PO BID 12/13/20 12/18/23 Unknown History atenolol 25 mg tablet 25 mg PO DAILY 11/03/22 12/18/23 12/18/23 History cholecalciferol (vitamin D3) 25 25 mcg PO DAILY 11/03/22 12/18/23 Unknown History mcg (1,000 unit) capsule (Vitamin D3) cyclobenzaprine 10 mg tablet 10 mg PO BEDTIME PRN muscle pain 11/03/22 12/18/23 Unknown History fluticasone propionate 44 2 puff inhalation BID 11/03/22 12/18/23 Unknown History mcg/actuation HFA aerosol inhaler (Flovent HFA) lisinopril 10 mg tablet 10 mg PO DAILY 11/03/22 12/18/23 Unknown History mirtazapine 45 mg tablet 45 mg PO BEDTIME 11/03/22 12/18/23 Unknown History riboflavin (vitamin B2) 100 mg 100 mg PO DAILY 11/03/22 12/18/23 Unknown History tablet (Vitamin B-2) Exam Airway Mallampati Class: II TM Dist: >3cm Neck ROM: Full Denture: Upper and Lower Heart: rrr Lungs: cta Assessment and Plan Assessment Anesthesia Assessment: Anesthesia Plan Discussed Final Anesthetic Review NPO: Yes ASA Class: II Final Preanesthetic Review: No Changes in Pt Med Stat, Meds/Allgs Chart Reviewed and Consent Obtained/Reviewed Patient Risk: Low Procedure Risk: Low Anesthetic Plan Anesthetic Plan: MAC: Disposition: Standard PACU
[2023-12-18 08:33] VITALS: BMI 29.6
[2023-12-18] MEDS: Lactated Ringers 1,000 ML 100 ML IVCONT (08:40)
[2023-12-18 08:55] VITALS: BP 157/60; PULSE 47; RESP 18; TEMP 36.3; O2SAT 98
--- NOTE | 2023-12-18 09:06 | MHC.SHP ---
Pre-Procedural Eval Section A - 24 Hr Update-Section A only Date of Service: 12/18/23 Section B - Complete if H&P > 30 days Chief Complaint: Benign neoplasm of colon, unspecified Details of Present Illness: Has history of tubular adenoma Relevant Family History (Specify if Yes): No Relevant Social History: None Present Medications: see Short Stay Collaborative assessment Medical History: Significant History (History of breast cancer) Allergies: Allergies Allergy/AdvReac Type Severity Reaction Status Date / Time No Known Allergies Allergy Verified 12/18/23 08:56 [No Known Allergies*] Review of Systems Sugical H&P ROS: Negative: Constitution, Cardiovascular, Respiratory, Neurological, Psychiatric, Hem-Onc, Allergic/Immunologic, Gastrointestinal, Genitourinary, Musculoskeletal, Integumentary, Endocrine and Eyes/Ears/Nose/Throat Exam Surgical H&P Exam: Normal: HEENT, Normal: Heart, Normal: Lungs, Normal: Extremities, Normal: Abdomen, Normal: Skin and Normal: Neurological Plan Diagnosis/Plan: Unchanged I have reviewed the history and physical and performed a pertinent physical examination on my patient. No changes have occurred unless specified. Time Spent With Patient Time: Total time managing care of this patient today ____ minutes.
--- NOTE | 2023-12-18 09:53 | W.PM.OPN ---
Operative Note Operative Note Date of Service: 12/18/23 Narrative: Preop diagnosis: History of tubular adenoma Postop diagnosis: 1. Small polyp in the proximal transverse colon, about 4 mm in diameter 2. Diverticulosis, diffuse, mild 3. Internal and external hemorrhoids with prolapse Procedure: Colonoscopy with polypectomy using cold forceps Surgeon: Cyrus Warner MD The patient is a 63 year old female who had 1 cm tubular adenoma removed with colonoscopy last year. In view of the size of the polyp I had recommended repeating the colonoscopy within 1 year. She understood the technique of the planned procedure as well as the risks, benefits, and alternatives She was brought to the operating room. She was placed in left lateral decubitus position under monitored anesthesia care. A full digital rectal exam was done. She did have internal external hemorrhoids with prolapse. The tip of the Olympus colonoscope was gently introduced through the anal orifice and advanced with insufflation all the way to the cecum. The cecum was intubated. The cecum was identified by visualization of the ileocecal valve as well as the incidental orifice. The cecal mucosa was unremarkable. The scope was gradually withdrawn with careful examination of the entire colonic mucosa being done with scope withdrawal. The patient had good bowel prep so it was unlikely that any lesion may have been missed. There was note of a small polyp, about 4 mm in the proximal transverse colon. This was removed using multiple bites of the cold forceps There was note of occasional diverticuli throughout the entire colon The rectum was reached. There was no lesions seen. She did have internal and external hemorrhoids with prolapse in the anal canal The scope was then withdrawn completely with desufflation The patient tolerated the procedure well. There were no immediate complications Depending on the path report, I would probably recommend a repeat colonoscopy in 5 years in view of her history of large polyp.
[2023-12-18 09:54] VITALS: BP 108/58; PULSE 66; RESP 16; TEMP 36.3; O2SAT 95
[2023-12-18 10:09] VITALS: BP 111/82; PULSE 57; RESP 16; TEMP 36.1; O2SAT 98
== END 2023-12-18 10:30 | disposition home or self-care (01) ==
PROVIDERS: PCP Family Medicine; Visit Provider Surgery
PROC: 0DBE8ZZ Excision of Large Intestine, Via Natural or Artificial Opening Endoscopic (ICD-10-PCS; CPT 45380; principal; 2023-12-18 09:30)
DX: Z12.11 Encounter for screening for malignant neoplasm of colon (principal); Z86.010 Personal history of colon polyps; D12.3 Benign neoplasm of transverse colon; K57.30 Diverticulosis of large intestine without perforation or abscess without bleeding; K64.8 Other hemorrhoids; K64.4 Residual hemorrhoidal skin tags; I10 Essential (primary) hypertension; M79.7 Fibromyalgia; M81.0 Age-related osteoporosis without current pathological fracture; Z85.3 Personal history of malignant neoplasm of breast; J45.909 Unspecified asthma, uncomplicated; Z79.51 Long term (current) use of inhaled steroids; Z79.899 Other long term (current) drug therapy; Z98.890 Other specified postprocedural states; Z87.891 Personal history of nicotine dependence
CPT/HCPCS: 45380; 88305; J2704

== ENCOUNTER → 2023-12-18 07:35 | Outpatient (BNV) | payer MEDICAID, SELFPAY | PROVIDERS: PCP Family Medicine; Visit Provider Surgery | DX: K63.5 Polyp of colon (principal); Z86.010 Personal history of colon polyps | CPT/HCPCS: 45380 ==

== ENCOUNTER 2023-12-31 10:32 | Outpatient (AMB) | payer MEDICAID, SELFPAY ==
--- NOTE | 2023-12-31 10:34 | A.OFFVIS_ITS ---
Vital Signs 12/31/23 10:37 Height 5 ft 2 in Weight 162 lb 0.001 oz BMI 29.6 Intake Visit Reasons: S/P colonoscopy Intake Note: This patient presents for a follow-up status post colonoscopy. Pt c/o; reports no complaints. Venetian Blind Mechanic Required: No Venetian Blind Mechanic Services: Venetian Blind Mechanic Offered & Declined Accompanied by: Self / Same As Patient Allergies No Known Allergies [No Known Allergies*] Allergy (Verified 12/31/23 10:38) HPI HPI S/P colonoscopy: Details: She had undergone a colonoscopy last 12/18/2023 because of a history of a colon polyp. She tolerated procedure well. She currently denies significant GI complaints. [facility] Medical History BRCA positive Tubular adenoma of colon HTN (hypertension) History of breast cancer Colon cancer screening Chronic headaches Asthma Breast cancer Osteoporosis Bipolar 1 disorder Anxiety Arthritis Fibromyalgia Surgical History History of removal of both ovaries History of modified radical mastectomy Family History Father Cancer Paternal Grandmother Cancer Sister Cancer Social History Household Members: Spouse Housing: Apartment Are you a primary customer care associate to a significant other at home: No Do you presently have visiting nurse or other home services: No Alcohol intake: never Patient Tobacco Use Status: Former Tobacco user Substance Use Type: Marijuana service: No Current occupational status: disabled Review of Systems Const Denies chills and Denies fever(s) Card Denies chest pain, Denies dyspnea and Denies dyspnea on exertion Resp Denies cough, Denies dyspnea and Denies dyspnea on exertion GI Denies hematochezia and Denies change in bowel habits Denies hematuria Musc Denies back pain and Denies limited range of motion Neuro Denies focal weakness and Denies convulsions Psych Denies depression and Denies mood swings Physical Exam Const General: comfortable and no acute distress Resp Effort & Inspection: normal respiratory effort GI Palpation (GI): Soft to palpation, not firm and nontender Assessment & Plan Assessment & Plan (1) Tubular adenoma of colon: Code(s): D12.6 - Benign neoplasm of colon, unspecified Category: Medical Plan: She is here to discuss her colonoscopy findings last 12/18/2023. I removed 1 small polyp. This was a tubular adenoma. She also has diverticulosis and hemorrhoids I would recommend repeating her colonoscopy in the next 5 years because of her history of a large polyp. She understands the plan well. Coding Level of Care Code Est Pt Level 2 (88180) Diagnoses Tubular adenoma of colon D12.6
[2023-12-31 10:37] VITALS: BMI 29.6
== END 2023-12-31 10:48 | disposition home or self-care (01) ==
PROVIDERS: PCP Family Medicine; Visit Provider Surgery
DX: D12.6 Benign neoplasm of colon, unspecified (principal)
CPT/HCPCS: 99212

== ENCOUNTER → 2023-12-31 10:32 | Outpatient (BNVA) | payer MEDICAID, SELFPAY | PROVIDERS: PCP Family Medicine; Visit Provider Surgery | DX: D12.6 Benign neoplasm of colon, unspecified (principal) | CPT/HCPCS: 99212 ==

== ENCOUNTER 2024-04-07 08:43 | Outpatient (REF) | payer MEDICAID, SELFPAY | END 2024-04-07 08:44 | disposition home or self-care (01) | LOC: HO.CT 08:43 | PROVIDERS: PCP Family Medicine; Visit Provider Physician Assistant Medical | DX: Z12.2 Encounter for screening for malignant neoplasm of respiratory organs (principal); Z87.891 Personal history of nicotine dependence | CPT/HCPCS: 71271 ==

== ENCOUNTER → 2024-04-07 08:44 | Outpatient (BNV) | payer MEDICAID, SELFPAY | PROVIDERS: PCP Family Medicine; Visit Provider Radiology Diagnostic Radiology | DX: Z12.2 Encounter for screening for malignant neoplasm of respiratory organs (principal); Z87.891 Personal history of nicotine dependence | CPT/HCPCS: 71271 ==

== ENCOUNTER 2024-06-17 07:12 | Emergency (ER) | payer MEDICAID, SELFPAY ==
--- NOTE | ~2024-06-17 | XR_ITS ---
EXAMINATION: XR CHEST 1 VIEW HISTORY: cough, fever COMPARISON: Comparison is made with the prior examination and dated 08/02/2022. FINDINGS: A single AP portable view of the chest performed at 8:45 AM is submitted. The lungs are expanded and clear. There is no pleural effusion, pneumothorax, or pulmonary vascular congestion. The heart is normal in size. There is mild degenerative disc disease of the spine. There are surgical clips in the right axilla. XR/XR chest 1V IMPRESSION: No acute cardiopulmonary abnormality. Electronically signed by: Ketan Rubi MD 06/17/2024 08:46 AM [facility]
[2024-06-17 07:25] VITALS: BP 164/78; PULSE 89; RESP 20; TEMP 36.8; O2SAT 94; BMI 28.9
[2024-06-17 07:53] LABS: MANUAL DIFF FLAG NO
[2024-06-17 07:54] LABS: Basophils Percent Auto 0.4 % (0-2); Hematocrit 42.3 % (37.0-47.0); Hemoglobin 13.9 g/dl (12.0-16.0); Imm Gran Abs Auto 0.04 X10*3/uL (0.00-0.03); Imm Gran Pct Auto 0.5 % (0.0-0.4); Lymphocytes Absolute Auto 0.5 X10*3/uL (1.2-4.9); Lymphocytes Percent Auto 6.6 % (20-40); Mean Corpuscular HGB Conc 32.9 g/dl (31.0-35.0); Mean Corpuscular Volume 91.4 fL (80.0-98.0); Mean Platelet Volume 9.9 fL (9.4-12.3); Monocytes Absolute Auto 0.6 X10*3/uL (0.1-1.2); Monocytes Percent Auto 7.4 % (2-11); Neutrophils Absolute Auto 6.3 x10*3/uL (2.0-8.3); Neutrophils Percent Auto 85.1 % (45-73); Platelet Count 292 X10*3/uL (160-400); Red Blood Count 4.63 X10*6/uL (4.20-5.50); Red Cell Distribution Width 12.5 % (11.0-16.0); White Blood Count 7.4 X10*3/uL (4.8-10.8)
[2024-06-17 08:07] LABS: Appearance Urine Clear; Color Urine Yellow; Glucose Urine UA Negative (Negative); Leukocyte Esterase Urine Negative (Negative); Nitrite Urine Negative (Negative); PH 5.5 (5.0-9.0); Specific Gravity - Urine 1.025 (1.005-1.025); UMIC TRIGGER UACC YES; Urine Blood Moderate (2+) (Negative); Urine Ketones 15 mg/dL (Negative); Urine Protein 300 (3+) mg/dL (Neg-Trace)
[2024-06-17 08:11] LABS: Alanine Aminotransferase 86 U/L (0-31); Albumin Level 4.4 g/dL (3.5-5.0); Anion Gap 16 (12-20); Aspartate Amino Transferase 97 U/L (5-31); Bilirubin Direct 0.2 mg/dL (0.0-0.5); Bilirubin Total 0.6 mg/dL (0.0-1.0); Blood Urea Nitrogen 23 mg/dL (9-16); Calcium 9.7 mg/dL (8.4-10.2); Carbon Dioxide 20 mmol/L (22-29); Chloride 104 mmol/L (96-108); Estimated Glomerular Filt Rate > 60; Glucose Random 133 mg/dL (60-115); Lipase 11 U/L (8-78); Potassium 3.9 mmol/L (3.3-5.1); Sodium 136 mmol/L (135-145); Total Protein 8.5 g/dL (6.5-8.0)
--- NOTE | 2024-06-17 08:14 | ED_ITS ---
HPI - Nausea/Vomiting/Diarrhea General Chief complaint: Nausea/Vomiting/Diarrhea Stated complaint: n/v/d, headache Time Seen by Provider: 06/17/24 07:48 Source: patient, family and old records reviewed Mode of arrival: ambulatory Limitations: no limitations History of Present Illness ED Provider: ARTURO HPI Narrative: 63 yo female with PMH of HTN, migraines, HLD, fibromyalgia, osteoporosis not on blood thinners here with c/o 2 days of body aches, cough, chest burning, not feeling well, n/v/d. She has a headache as well that she cannot get rid of. She has had a fever. She notes everyone in her family has a virus but she isn't sure which one. She is not vaccinated against the flu. She took nyquil but no relief. She is not on blood thinners. MD elicited complaint: nausea, vomiting and diarrhea Onset (ago): day(s) (2) Description of vomiting: watery Description of diarrhea: watery Associated nausea: Yes Associated abdominal pain: No Radiation: diffuse Pain consistency: constant Severity: moderate Quality: aching Exacerbating factors: movement Relieving factors: none Context: sick contacts Associated symptoms: myalgias, cough, fever/chills, headaches, loss of appetite, malaise, nausea/vomiting and weakness Related Data Home Medications ?Medication ?Instructions ?Recorded ?Confirmed acetaminophen 325 mg tablet 2 tab PO Q6H PRN severe pain 12/13/20 01/07/24 albuterol sulfate 90 mcg/actuation 2 puff PO Q4H PRN dyspnea 12/13/20 01/07/24 aerosol inhaler (ProAir HFA) clonazepam 2 mg tablet 1 tab PO BID anxiety 12/13/20 01/07/24 cyanocobalamin (vitamin B-12) 100 1 tab PO DAILY 12/13/20 01/07/24 mcg tablet loratadine 10 mg tablet 1 tab PO DAILY 12/13/20 01/07/24 omeprazole 20 mg capsule,delayed 1 cap PO DAILY 12/13/20 01/07/24 release ziprasidone HCl 60 mg capsule 1 cap PO BID 12/13/20 01/07/24 atenolol 25 mg tablet 25 mg PO DAILY 11/03/22 01/07/24 cholecalciferol (vitamin D3) 25 25 mcg PO DAILY 11/03/22 01/07/24 mcg (1,000 unit) capsule (Vitamin D3) cyclobenzaprine 10 mg tablet 10 mg PO BEDTIME PRN muscle pain 11/03/22 01/07/24 fluticasone propionate 44 2 puff inhalation BID 11/03/22 01/07/24 mcg/actuation HFA aerosol inhaler (Flovent HFA) lisinopril 10 mg tablet 10 mg PO DAILY 11/03/22 01/07/24 mirtazapine 45 mg tablet 45 mg PO BEDTIME 11/03/22 01/07/24 riboflavin (vitamin B2) 100 mg 100 mg PO DAILY 11/03/22 01/07/24 tablet (Vitamin B-2) Previous Rx's ?Medication ?Instructions ?Recorded sodium,potassium,mag sulfates 17.5 See Rx Instructions PO .COMPLEX 11/03/22 gram-3.13 gram-1.6 gram oral soln #354 mL (Suprep Bowel Prep Kit) sodium,potassium,mag sulfates 17.5 See Rx Instructions PO .COMPLEX 09/23/23 gram-3.13 gram-1.6 gram oral soln #354 mL (Suprep Bowel Prep Kit) ondansetron 4 mg disintegrating 4 mg PO Q8H PRN nausea and 06/17/24 tablet vomiting #20 tabs oseltamivir 75 mg capsule (Tamiflu) 75 mg PO BID 5 days #10 caps 06/17/24 Allergies Allergy/AdvReac Type Severity Reaction Status Date / Time No Known Allergies Allergy Verified 06/17/24 07:27 [No Known Allergies*] Review of Systems 2 Review of Systems: Constitutional : pos Fever, pos Chills, pos Fatigue ENT/Mouth : pos sore throat, No Rhinorrhea Eyes: No Eye Pain, No Swelling, No Redness Cardiovascular : No Chest Pain, No SOB, No Dyspnea on Exertion Respiratory : No Cough, No Sputum Gastrointestinal : No Nausea, No Vomiting, No Diarrhea, No abdominal Pain Genitourinary : No Dysuria, No Urinary Frequency, No Hematuria, Musculoskeletal : No joint pain, No Myalgias, No Joint Swelling Skin : No Skin Lesions, No rash Neuro : No Weakness, No Numbness, No Dizziness, positive Headache Psych : No Anxiety/Panic, No Depression Heme/Lymph: No Bruising, No Bleeding,No Lymphadenopathy Endocrine : No Polyuria, No Polydipsia All other systems reviewed and are negative Gastrointestinal: Gastrointestinal: Reports nausea PMFSH Past Medical History Attestation statement: The following information was validated with the patient. Source: old records reviewed Medical History Vaginal intraepithelial neoplasia III (VAIN III) History of breast cancer BRCA positive Bipolar 1 disorder Fibromyalgia HTN (hypertension) Asthma Personal history of nicotine dependence Osteoporosis Tubular adenoma of colon Chronic headaches Anxiety Arthritis Surgical History History of modified radical mastectomy History of mastectomy History of basal cell carcinoma (BCC) excision History of cholecystectomy History of removal of both ovaries History of History of colposcopy Family History Family History Father Cancer Paternal Grandmother Cancer Sister Cancer Social History Social History Household Members: Spouse Housing: Apartment Are you a primary cardiac care nurse to a significant other at home: No Do you presently have visiting nurse or other home services: No Alcohol intake: never Patient Tobacco Use Status: Former Tobacco user Substance Use Type: Marijuana Advance Directives: No Advance Directives Information Provided: No Do you have a plan to hurt others: No Plan service: No Current occupational status: disabled Physical Exam 2 Vital Signs: Vital Signs: Last Vital Signs Temp 98.3 F 06/17/24 07:25 Pulse 89 06/17/24 07:25 Resp 20 06/17/24 07:25 BP 164/78 H 06/17/24 07:25 Pulse Ox 94 06/17/24 07:25 O2 Del Method Room Air 06/17/24 07:25 BMI result Body Mass Index 28.9 Appearance: Alert. Oriented X3. No acute distress. Eyes: Pupils equal, round and reactive to light. ENT: Pharynx normal. MMM Neck: Normal inspection. Neck supple. no meningeal signs CVS: Normal heart rate and rhythm. Pulses normal. Respiratory: No respiratory distress. Breath sounds normal. Abdomen: Soft and nontender. Skin: Skin warm and dry. Normal skin color. Normal skin turgor. Extremities: No lower extremity edema. No calf ttp Neuro: Oriented X 3. No motor deficit. No sensory deficit. CN2-12 intact Medications Administered Discontinued Medications Generic Name Dose Route Start Last Admin Trade Name Aisha PRN Reason Stop Dose Admin Diphenhydramine HCl 25 mg 06/17/24 08:06 06/17/24 08:53 Diphenhydramine Hcl 50 Mg/Ml Vial IVPUSH 06/17/24 08:07 25 mg ONCE ONE Administration Lactated Ringer's 1,000 mls @ 999 mls/hr 06/17/24 08:06 06/17/24 08:49 Lr IV 06/17/24 09:06 999 mls/hr .Q1H1M ONE Administration Ketorolac Tromethamine 15 mg 06/17/24 08:06 06/17/24 08:54 Ketorolac Tromethamine 15 Mg/Ml Vial IVPUSH 06/17/24 08:07 15 mg ONCE ONE Administration Metoclopramide HCl 10 mg 06/17/24 08:06 06/17/24 08:57 Metoclopramide Hcl 10 Mg/2 Ml Vial IVPUSH 06/17/24 08:07 10 mg ONCE ONE Administration Medical Decision Making Medical Decision Making MDM Narrative: 63 yo female with PMH of HTN, migraines, HLD, fibromyalgia, osteoporosis not on blood thinners here with c/o viral like illness, body aches, cough, n/v/d headaches not responding to tylenol - she has been sick for 2 days with her whole family ill. she has normal neuro exam and no meningeal signs doubt SAH/AIRLINE ATTENDANT infection at this time labs, CXR, migraine cocktail and will reassess. suspect viral syndrome Differential Diagnosis Differential Diagnoses: The differential diagnosis associated with the presentation includes dehydration, viral syndrome, migraine Admission/Observation Consideration of admission/observation: Escalation of care including admission/observation considered feels better not toxic stable for DC Lab Data [facility] Lab Attestation statement: I reviewed the patient's lab results. 06/17/24 07:46 06/17/24 07:46 Labs: Lab Results 06/17/24 06/17/24 Range/Units 07:46 07:59 WBC 7.4 (4.8-10.8) X10*3/uL RBC 4.63 (4.20-5.50) X10*6/uL Hgb 13.9 (12.0-16.0) g/dl Hct 42.3 (37.0-47.0) % MCV 91.4 (80.0-98.0) fL MCH 30.0 (27.0-33.0) pg MCHC 32.9 (31.0-35.0) g/dl RDW 12.5 (11.0-16.0) % Plt Count 292 (160-400) X10*3/uL MPV 9.9 (9.4-12.3) fL Immature Gran % (Auto) 0.5 H (0.0-0.4) % Neut % (Auto) 85.1 H (45-73) % Lymph % (Auto) 6.6 L (20-40) % [place] % (Auto) 7.4 (2-11) % Eos % (Auto) 0.0 (0-4) % Baso % (Auto) 0.4 (0-2) % Lymph # (Auto) 0.5 L (1.2-4.9) X10*3/uL [place] # (Auto) 0.6 (0.1-1.2) X10*3/uL Eos # (Auto) 0.0 (0.0-0.4) X10*3/uL Baso # (Auto) 0.0 (0.0-0.2) X10*3/uL Abs Immat Gran (auto) 0.04 H (0.00-0.03) X10*3/uL Absolute Neuts (auto) 6.3 (2.0-8.3) x10*3/uL Absolute Nucleated RBC 0.000 (0.0-0.012) X10*3/uL Nucleated RBC % (auto) 0.0 (0.0-0.2) /100WBC Sodium 136 (135-145) mmol/L Potassium 3.9 (3.3-5.1) mmol/L Chloride 104 (96-108) mmol/L Carbon Dioxide 20 L (22-29) mmol/L Anion Gap 16 (12-20) BUN 23 H (9-16) mg/dL Creatinine 0.92 (0.5-1.4) mg/dL Estim Creat Clear Calc 58.0 Estimated GFR > 60 Random Glucose 133 H (60-115) mg/dL Calcium 9.7 (8.4-10.2) mg/dL Total Bilirubin 0.6 (0.0-1.0) mg/dL Direct Bilirubin 0.2 (0.0-0.5) mg/dL AST 97 H (5-31) U/L ALT 86 H (0-31) U/L Total Protein 8.5 H (6.5-8.0) g/dL Albumin 4.4 (3.5-5.0) g/dL Lipase 11 (8-78) U/L Urine Color Yellow Urine Appearance Clear Urine pH 5.5 (5.0-9.0) Ur Specific [place] 1.025 (1.005-1.025) Urine Protein 300 (3+) H (Neg-Trace) mg/dL Urine Glucose (UA) Negative (Negative) mg/dL Urine Ketones 15 (Negative) mg/dL Urine Blood Moderate (2+) H (Negative) Urine Nitrite Negative (Negative) Ur Leukocyte Esterase Negative (Negative) Urine RBC 6-10 H (0-2) /HPF Urine WBC 0-5 (0-5) /HPF Ur Squamous Epith Cells 6-10 (0-2) /HPF Urine Bacteria Trace (None Seen) Hyaline Casts 6-10 (0-2) /LPF Granular Casts Present Influenza Type A (PCR) POSITIVE A (Negative) Influenza Type B (PCR) NEGATIVE (Negative) RSV RNA Qual (PCR) NEGATIVE (Negative) SARS-CoV-2 RNA (RT-PCR) NEGATIVE (Negative) Independent Interpretation I performed an independent interpretation of an: Plain X-Ray (normal ) Radiology Impression Discussion of test interpretation with radiology: I have reviewed the radiologist's reading. Independent Historian Clinical information obtained from an independent historian. History obtained from or confirmed by: Spouse External Record Review External record reviewed: Outpatient record Prescription Management I considered prescription management with: Antiviral and Other Discharge Plan Discharge Clinical Impression: Influenza A Patient Disposition: Home, Self-Care Instructions: Influenza (ED) Additional Instructions: rest and stay hydrated motrin and tylenol for fevers return for trouble breathing, chest pain or any other concerns this is infectious wear a mask and protect others slight bump in liver enzymes very mild likely due to the flu repeat liver tests with primary care doctor next week chest xray normal Prescriptions: New oseltamivir [Tamiflu] 75 mg capsule 75 mg PO BID 5 Days Qty: 10 0RF ondansetron 4 mg tablet,disintegrating 4 mg PO Q8H PRN (Reason: nausea and vomiting) Qty: 20 0RF No Action acetaminophen 325 mg tablet 2 tab PO Q6H PRN (Reason: severe pain) cyanocobalamin (vitamin B-12) 100 mcg tablet 1 tab PO DAILY clonazepam 2 mg tablet 1 tab PO BID omeprazole 20 mg capsule,delayed release(DR/EC) 1 cap PO DAILY albuterol sulfate [ProAir HFA] 90 mcg/actuation HFA aerosol inhaler 2 puff PO Q4H PRN (Reason: dyspnea) ziprasidone HCl 60 mg capsule 1 cap PO BID loratadine 10 mg tablet 1 tab PO DAILY mirtazapine 45 mg tablet 45 mg PO BEDTIME fluticasone propionate [Flovent HFA] 44 mcg/actuation HFA aerosol inhaler 2 puff inhalation BID lisinopril 10 mg tablet 10 mg PO DAILY atenolol 25 mg tablet 25 mg PO DAILY cyclobenzaprine 10 mg tablet 10 mg PO BEDTIME PRN (Reason: muscle pain) cholecalciferol (vitamin D3) [Vitamin D3] 25 mcg (1,000 unit) capsule 25 mcg PO DAILY riboflavin (vitamin B2) [Vitamin B-2] 100 mg tablet 100 mg PO DAILY sodium,potassium,mag sulfates [Suprep Bowel Prep Kit] 17.5-3.13-1.6 gram recon soln See Rx Instructions PO .COMPLEX Qty: 354 0RF Rx Instructions: DILUTE; drink full amount early evening before AND next morning at least 2 hr before procedure; follow w 960 mL water PO sodium,potassium,mag sulfates [Suprep Bowel Prep Kit] 17.5-3.13-1.6 gram recon soln See Rx Instructions PO .COMPLEX Qty: 354 0RF Rx Instructions: DILUTE; drink full amount early evening before AND next morning at least 2 hr before procedure; follow w 960 mL water PO Print Language: Arabic
[2024-06-17 08:19] LABS: Bacteria Urine Trace (None Seen); Granular Casts Urine Present; WBC Urine 0-5 /HPF (0-5)
[2024-06-17 08:44] LABS: Influenza A PCR POSITIVE (Negative); Influenza B PCR NEGATIVE (Negative); Resp Syncy Virus RNA Qual PCR NEGATIVE (Negative); SARS COV2 PCR INHOUSE NEGATIVE (Negative)
[2024-06-17] MEDS: Lactated Ringers 1,000 ML 999 ML IV (08:49)
[2024-06-17] MEDS: diphenhydrAMINE HCL 50 MG/ML VIAL 25 MG IVPUSH (08:53)
[2024-06-17] MEDS: Ketorolac Tromethamine 15 MG/ML VIAL IVPUSH (08:54)
[2024-06-17] MEDS: Metoclopramide HCl 10 MG/2 ML VIAL IVPUSH (08:57)
[2024-06-17 10:39] VITALS: BP 200/96; PULSE 87; RESP 20; TEMP 37.2; O2SAT 95
[2024-06-17] MEDS: lisinopriL 10 MG TABLET PO (10:47)
[2024-06-17] MEDS: atenoloL 25 MG TABLET PO (10:47)
[2024-06-17] MEDS: Acetaminophen 325 MG TABLET 650 MG PO (11:41)
[2024-06-17 11:57] VITALS: BP 170/77; PULSE 69; RESP 16; TEMP 37.3; O2SAT 94
[2024-06-17 12:23] VITALS: BP 170/77; PULSE 69; RESP 16; TEMP 37.3; O2SAT 94
[2024-06-17 14:10] LABS: Alkaline Phosphatase 126 U/L (39-117)
== END 2024-06-17 12:23 | disposition home or self-care (01) ==
PROVIDERS: Emergency Provider Emergency Medicine; PCP Family Medicine
DX: J10.1 Influenza due to other identified influenza virus with other respiratory manifestations (principal); R11.2 Nausea with vomiting, unspecified; R51.9 Headache, unspecified; I10 Essential (primary) hypertension; R05.9 Cough, unspecified; M79.10 Myalgia, unspecified site; Z87.891 Personal history of nicotine dependence; Z03.818 Encounter for observation for suspected exposure to other biological agents ruled out
CPT/HCPCS: 0241U; 36415; 71045; 80048; 80076; 81001; 83690; 85025; 96361; 96374; 96375; 99284; J1200; J1885; J2765; J7120

== ENCOUNTER → 2024-06-17 08:19 | Outpatient (BNV) | payer MEDICAID, SELFPAY | PROVIDERS: Emergency Provider Emergency Medicine; PCP Family Medicine; Visit Provider Radiology Diagnostic Radiology | DX: R05.9 Cough, unspecified (principal); R50.9 Fever, unspecified | CPT/HCPCS: 71045 ==

== ENCOUNTER 2024-07-05 09:00 | Outpatient (REF) | payer MEDICAID, SELFPAY ==
--- OUTSIDE RECORDS SUMMARY | 2024-07-05 09:50 | XMS_ITS | Encounter Summary ---
Author Organization [employer] Address [address] [facility] 7 [place] [address] Care Team Providers Care Firer Kiln Name Role Phone Valentine Rodriguez MD Primary Care Provider [phone]- [phone] Timmy Contreras Unavailable Unavailable Reason for Visit * Reason Comments Med Refill Encounter Details Date Type Department Care Team (Late st Contact Info) Description 06/12/2024 Refill [facility] [address] [place], [place] [phone] Valentine Rodriguez MD [address] [place], [place] [phone] Fibromyalgia Social History Tobacco Use Types Packs/Day Years Used Date Smoking Tobacco: Former Cigarettes Smokeless Tobacco: Never Alcohol Use Standard Drinks/Week Comments Defer 0 (1 standard drink = 0.6 oz pur e alcohol) Very rarely Depression Answer Date Recorded Patient Health Questionnaire-9 Score 16 06/22/2023 Patient Health Questionnaire-9 Score 16 06/22/2023 Last PHQ-9: Questionnaire Data Not on file 0 06/22/2023 Housing Stability Answer Date Recorded What is your housing situation today? I have maggie santos 03/19/[address] you li ve. Do you have problems with any of the following? None of the above 03/19/2023 Food Insecurity Answer Date Recorded Within the past 12 months, y ou worried that your food would run out before you got money to buy more: Never True 03/19/2023 Within the past 12 months,th e food you bought just didn't last and you didn't have enough money to get more: Never True Transportation Answer Date Recorded In the past 12 months, has l ack of transportation kept you from medical appts, meetings, work or from getting things needed for daily living? No 03/19/2023 Utilities Answer Date Recorded In the past 12 months, has t he electric, gas, oil or water company threatened to shut off services in your home? No 03/19/2023 Depression Answer Date Recorded Patient Health Questionnaire-2 Score 4 06/22/2023 Comments Unknown Sex and Gender Information Value Date Recorded Sex Assigned at Female 03/24/2022 10:16 AM EDT Legal Sex Female 10:16 AM EDT Gender Identity Female 03/24/2022 10:16 AM EDT Sexual Orientation Straight 03/24/2022 10 :16 AM EDT documented as of this encounter Plan of Treatment Upcoming Encounters Date Type Department Care Team (Late st Contact Info) Description 08/22/2024 9:00 AM EDT Office Visit [facility] [address] [place] [address] Deborah Davis, OD [address] [place] [address] documented as of this encounter Goals Goal Patient Goal Type Associated Problems Recent Progress Patient-Stated? Author Blood Pressure < 140/90 Blood Pressure 170/92( 025 10:48 AM EST) No Slime Hernandez, DanyaD documented as of this encounter Visit Diagnoses Diagnosis Fibromyalgia Unspecified myalgia and myositis documented in this encounter Additional Health Concerns Assessment Noted Time PHQ-9 Depression Total Score: 16 024 8:59 AM EST documented as of this encounter Care Teams Firer Kiln Relationship Specialty Start Date End Date Valentine Rodriguez MD [address] [place] [address] PCP - General Family Medicine 05/25/18 Timmy Contreras FNP [address] [place] [address] Nurse Practitioner Family Medicine 04/13/23 documented as of this encounter
--- OUTSIDE RECORDS SUMMARY | 2024-07-05 09:50 | XMS_ITS | Encounter Summary ---
Author Organization [employer] Address [address] [facility] [address] [place] [address] Care Team Providers Care Aquaculture Worker Name Role Phone Valentine Rodriguez MD Primary Care Provider [phone]- [phone] Timmy Contreras Unavailable Unavailable Reason for Visit * Reason Comments Asthma Cough Encounter Details Date Type Department Care Team ([facility] st Contact Info) Description 06/23/2024 9:40 AM EST Office Visit [facility] [address] [place] [phone] Jonathan Rubalcava MD [address] [place] [id number] Moderate persistent asthma with exacerbation (Primary Dx); Essential hypertension; Transaminitis Social History Tobacco Use Types Packs/Day Years Used Date Smoking Tobacco: Former Cigarettes Passive Smoke Exposure: Past Smokeless Tobacco: Never Tobacco Cessation:Counseling Given: Not Answered Alcohol Use Standard Drinks/Week Comments Defer 0 [...] AM EDT documented as of this encounter Last Filed Vital Signs Vital Sign Reading Time Taken Comments Blood Pressure 170/92 06/23/2024 10:48 AM EST Pulse 80 06/23/2024 9:30 AM EST Temperature 36.7 ??C (98 ??F) 06/23/2024 9:30 AM EST Respiratory Rate 24 06/23/2024 9:30 AM EST Oxygen Saturation 98% 06/23/2024 9:30 AM EST Inhaled Oxygen Concentration - - Weight 71.9 kg (158 lb 8 oz) 06/23/2024 9:30 AM EST Height 157.5 cm (5' 2 ) 06/23/2024 9:30 AM EST Body Mass Index 28.99 06/23/2024 9:30 AM EST documented in this encounter Progress Notes * Jonathan Rubalcava MD - 06/23/2024 9:40 AM EST Subjective History was provided by the patient. Sanchez Blackburn is a 63 y.o. female who presents for evaluation of dry cough, wheezing, and SOB. Denies congestion or rhinorrhea. Denies CP. Recent [facility] ER visit on 06/17/2024 due to N/V/D & GALLOWAY. Was diagnosed with Influenza A. CXR was negative. Found to have elevated AST/ALT. Denies abdominal pain. Denies current N/V/D. Also has been out of Ateneolol for 2 days. Also reports her BP machine is broken. Requesting a new device. Objective Vitals: 06/23/24 0930 06/23/24 1048 BP: (!) 180/93 (!) 170/92 BP Location: Right arm Right arm Patient Position: Sitting Sitting BP Cuff Size: Adult Adult Pulse: 80 Resp: 24 Temp: 98 ??F (36.7 ??C) TempSrc: Oral SpO2: 98% Weight: 158 lb 8 oz (71.9 kg) Height: 5' 2 (1.575 m) Physical Exam Vitals reviewed. Constitutional: Appearance: Normal appearance. She is normal weight. HENT: Head: Normocephalic and atraumatic. Right Ear: Tympanic membrane, ear canal and external ear normal. Left Ear: Tympanic membrane, ear canal and external ear normal. Nose: Nose normal. Mouth/Throat: Mouth: Mucous membranes are moist. Pharynx: Oropharynx is clear. Eyes: Extraocular Movements: Extraocular movements intact. Conjunctiva/sclera: Conjunctivae normal. Pupils: Pupils are equal, round, and reactive to light. Cardiovascular: Rate and Rhythm: Normal rate and regular rhythm. Heart sounds: Normal heart sounds. Pulmonary: Effort: Pulmonary effort is normal. No respiratory distress. Breath sounds: Wheezing (Scattered, end-expiratory wheezing) present. No rhonchi or rales. Chest: Chest wall: No tenderness. Musculoskeletal: General: Normal range of motion. Cervical back: Normal range of motion and neck supple. Skin: General: Skin is warm and dry. Neurological: General: No focal deficit present. Mental Status: She is alert and oriented to person, place, and time. Mental status is at baseline. Psychiatric: Mood and Affect: Mood normal. Behavior: Behavior normal. Thought Content: Thought content normal. Judgment: Judgment normal. Sanchez was seen today for asthma and cough. Diagnoses and all orders for this visit: Moderate persistent asthma with exacerbation (Primary) - albuterol (Ventolin HFA) 108 (90 Base) MCG/ACT inhaler; Inhale 2 puffs every 6 (six) hours if needed for wheezing or shortness of breath. - predniSONE (Deltasone) 20 MG tablet; Take 2 tablets (40 mg) by mouth Once per day for 5 days. Essential hypertension - atenolol (Tenormin) 25 MG tablet; Take 1 tablet (25 mg) by mouth Once per day. - Blood Pressure kit; Check bp three times a week Transaminitis - Hepatic Function Panel; Future Patient with a clinical presentation of asthma exacerbation in a setting of recent Influenza A (treated with Tamiflu) Recent CXR unremarkable Expiratory wheezing on pulmonary exam, but no respiratory distress O2 sat reassuring Will treat with Prednisone 40mg daily for 5 days Also refilled Atenolol, Albuterol, and BP machine Recently found to have elevated AST/ALT in the ER (in a setting of Influenza A); will repeat LFT tofurther evaluate Discussed supportive care with ample hydration, sleep position and rest Potential adverse effects of the medications reviewed OTC supportive medications reviewed Droplet precautions discussed Advised to contact the clinic if no improvement of symptoms Indications for UC/ER use reviewed documented in this encounter Plan of Treatment Upcoming Encounters Date Type Department Care Team (Late st Contact Info) Description 08/22/2024 9:00 AM EDT Office Visit [facility] [address] [place] [address] Ryan, Deborah, OD [address] [place] [address] Scheduled Orders Name Type Priority Associated Diagnoses Orde r Schedule Hepatic Function Panel Lab Routine Transaminitis Expected: 06/23/2024 (Approximate), Expires: 06/23/2025 documented as of this encounter Goals Goal Patient Goal Type Associated Problems Recent Progress Patient-Stated? Author Blood Pressure < 140/90 Blood Pressure 170/92( 025 10:48 AM EST) No PiersSlime Johnson, PharmD documented as of this encounter Visit Diagnoses Diagnosis Moderate persistent asthma with exacerbation- Primary Unspecified asthma, with exacerbation Essential hypertension Unspecified essential hypertension Transaminitis Nonspecific elevation of levels of transaminase or lactic acid dehydrogenase (LDH) documented in this encounter Additional Health Concerns Assessment Noted Time PHQ-9 Depression Total Score: 16 024 8:59 AM EST documented as of this encounter Care Teams Aquaculture Worker Relationship Specialty Start Date End Date Valentine Rodriguez MD [address] [place] [address] PCP - General Family Medicine 05/25/18 Timmy Contreras FNP [address] [place] [id number] Nurse Practitioner Family Medicine 04/13/23 documented as of this encounter
--- OUTSIDE RECORDS SUMMARY | 2024-07-05 09:50 | XMS_ITS | Encounter Summary ---
Author Organization [employer] Address [address] [place] [address] 7 [place] [address] Care Team Providers Care Nursing Secretary Name Role Phone Valentine Rodriguez MD Primary Care Provider +1- [phone] Timmy Contreras Unavailable Unavailable Reason for Visit * Reason Onset Date Comments Nurse Triage 06/22/2024 Encounter Details Date Type Department Care Team (Late st Contact Info) Description 06/22/2024 Telephone [facility] [address] [place] [address] Valentine Rodriguez MD [address] [place], [place] [phone] Nurse Triage Social History Tobacco Use Types Packs/Day Years [...] AM EDT documented as of this encounter Miscellaneous Notes * Telephone Encounter - Charley Fregoso RN - 06/24/2024 9:08 AM EST TC placed to pt to inform that PCP sent both a blood pressure kit and refill on blood pressure medication to the [facility] pharmacy. Pt also reminded of repeat Hepatic Function Panel ordered by Dr. Rubalcava that pt will have drawn next week. * Telephone Encounter - Rosamaria Rosas RN - 06/23/2024 10:58 AM EST Pt came to walk in clinic today and saw Dr Rubalcava. Was prescribed Ventolin inhaler as requested and obtained refill on BP meds and new BP machine. * Telephone Encounter - Kalie Hernandez RN - 06/22/2024 4:47 PM EST Triage call Pt reports dog destroyed BP machine and is in need of new one. Requesting for daily BP monitoring. Also Pt doesn't like the fluticasone furate inhaler and requests refill of ventolin HFA which was much better. Also Pt is finished with atenolol 25mg prescription and requesting another. Pt will come to [facility] tomorrow morning to have BP checked. Protocol Used: Medication Refill and Renewal Call (Adult) Protocol-Based Disposition: Discuss with PCP and Callback by Nurse within 1 Hour Positive Triage Question: * Prescription refill request for ESSENTIAL medicine (i.e., likelihood of harm to patient if not taken) and triager unable to refill per department policy * All higher-acuity triage questions were negative Care Advice Discussed: * Reasons To Call Back - You have more questions * Telephone Encounter - Barbara Jones - 06/22/2024 3:44 PM EST Symptoms: High Blood Pressure - Caller Reports, Diarrhea Outcome: Transfer to a nurse or provider NOW! Reason: Weak or numb on one side of the body only The caller accepted this outcome. [phone] documented in this encounter Plan of Treatment Upcoming Encounters Date Type Department Care Team (Late st Contact Info) Description 08/22/2024 9:00 AM EDT Office Visit [facility] [address] [place] [address] Deborah Davis, OD [address] [place] [address] documented as of this encounter Goals Goal Patient Goal Type Associated Problems Recent Progress Patient-Stated? Author Blood Pressure < 140/90 Blood Pressure 170/92( 025 10:48 AM EST) No Slime Hernandez, PharmD documented as of this encounter Visit Diagnoses Not on filedocumented in this encounter Additional Health Concerns Assessment Noted Time PHQ-9 Depression Total Score: 16 024 8:59 AM EST documented as of this encounter Care Teams Nursing Secretary Relationship Specialty Start Date End Date Valentine Rodriguez MD [address] [place] [address] PCP - General Family Medicine 05/25/18 Timmy Contreras FNP [address] [place] [address] Nurse Practitioner Family Medicine 04/13/23 documented as of this encounter
--- OUTSIDE RECORDS SUMMARY | 2024-07-05 09:50 | XMS_ITS | Encounter Summary ---
Author Organization [employer] Address [address] [facility] [address] [place] [address] Care Team Providers Care Assistant Professor Of Spanish Name Role Phone Valentine Rodriguez MD Primary Care Provider +1- [phone] Timmy Contreras Unavailable Unavailable Encounter Details Date Type Department Care Team (Late st Contact Info) Description 06/17/2024 Orders Only GENERIC EXTERNAL DATA DEPARTMENT Provider, Generic External Data Social History Tobacco Use Types Packs/Day Years [...] Description 08/22/2024 9:00 AM EDT Office Visit [facility] [address] [place], [place] [phone] Ryan, Megan, OD [address] [place] [address] documented as of this encounter Goals Goal Patient Goal Type Associated Problems Recent Progress Patient-Stated? Author Blood Pressure < 140/90 Blood Pressure 170/92( 025 10:48 AM EST) No Slime Hernandez, DanyaD documented as of this encounter Procedures Procedure Name Priority Date/Time Associated Diagnosis Comments XR CHEST 1 VIEW Routine 06/17/2024 8:19 AM EST URINALYSIS, COMPLETE, WITH REFLEX TO CULTURE Routine 06/17/2024 7:59 AM EST SARS COV2/INFLUENZA A/B AND RSV RNA QL NAAT Routine 06/17/2024 7:59 AM EST CBC WITH AUTO DIFFERENTIAL Routine 06/17/2024 7:46 AM EST LIPASE Routine 06/17/2024 7:46 AM EST HEPATIC FUNCTION PANEL Routine 06/17/2024 7:46 AM EST BASIC METABOLIC PANEL Routine 06/17/2024 7:46 AM EST documented in this encounter Results * XR Chest 1 View (06/17/2024 8:19 AM EST) Anatomical Region Laterality Modality Chest Radiographic Gloria ging 06/17/2024 8:19 AM EST Narrative 06/17/2024 8:49 AM EST ? [facility] ?[address] ?[place] [address] ?XRay Report ? Signed ? Patient: Blackburn,Sanchez M ?MR#: [id number] ? : 1960 ?Acct:[id number] ? Age/Sex: 63 / F ?ADM Date: 06/17/24 ? Loc: HO.ED ? Attending Dr: ? Ordering Physician: Jessica Nur DO ?? Date of Service: 06/17/24 ?? Procedure(s): XR chest 1V ?? Accession Number(s): [id number] ? cc: Valentine Rodriguez MD; Jessica Nur DO ? EXAMINATION: ??XR CHEST 1 VIEW ? HISTORY: cough, fever ? COMPARISON: Comparison is made with the prior examination and dated ?? 08/02/2022. ? FINDINGS: ??A single AP portable view of the chest performed at 8:45 AM ?? is submitted. The lungs are expanded and clear. ??There is no pleural ?? effusion, pneumothorax, or pulmonary vascular congestion. ??The heart is ?? normal in size. ??There is mild degenerative disc disease of the spine. ?? There are surgical clips in the right axilla. ? XR/XR chest 1V ?? IMPRESSION: ?? No acute cardiopulmonary abnormality. ? Electronically signed by: ??Ketan Rubi MD ??06/17/2024 08:46 AM EST ? Dictated By: ?Ketan Rubi MD ? Signed By: ?<Electronically signed by Ketan Rubi MD in OV> ?06/17/24 0846 ? DD/ 0819 ? TD/TT: 06/17/24 0840 ? Sales Secretary: ? Procedure Note Jennyfer Giles - 06/17/[address] [place] [address] XRay Report Signed Patient: Sanchez Blackburn [facility]#: [id number] : 1Acct:[id number] Age/Sex: 63 / FADM Date: 06/17/24 Loc: .ED Attending Dr: Ordering Physician: Jessica Nur DO Date of Service: 06/17/24 Procedure(s): XR chest 1V Accession Number(s): [id number] cc: Valentine Rodriguez MD; Jessica Nur DO EXAMINATION: XR CHEST 1 VIEW HISTORY: cough, fever COMPARISON: Comparison is made with the prior examination and dated 08/02/2022. FINDINGS: A single AP portable view of the chest performed at 8:45 AM is submitted. The lungs are expanded and clear. There is no pleural effusion, pneumothorax, or pulmonary vascular congestion. The heart is normal in size. There is mild degenerative disc disease of the spine. There are surgical clips in the right axilla. XR/XR chest 1V IMPRESSION: No acute cardiopulmonary abnormality. Electronically signed by: Ketan Rubi MD 06/17/2024 08:46 AM EST Dictated By: Ketan Rubi MD Signed By: <Electronically signed by Ketan Rubi MD in OV> 06/17/24 0846 DD/ 0819 TD/TT: 06/17/24 0840 Sales Secretary: [facility] External Provider IMG XR PROCEDURES Final Result * (ABNORMAL) SARS-CoV-2 RNA, Influenza A/B, and RSV RNA, Ql NAAT (06/17/2024 7:59 AM EST) Influenza A PCR POSITIVE(A) Negative [facility] Influenza B PCR NEGATIVE Negative [facility] Resp Syncy Virus RNA Qual PCR NEGATIVE Negative LABS SARS COV2 PCR NEGATIVE Negative [facility] Comment:All test results mus t be correlated with clinical findings.Negative results do not preclude SARS-CoV2, influenza Avirus, influenza B virus and/or RSV infectionand should not be used as the sole basis for treatment orother patient management decisions. Negative results must becombined with clinical observations, patient history, andepidemiological information.This test has not been evaluated for monitoring treatment ofinfection.This test has been authorized by the FDA under an EmergencyUse Authorization (EUA) for use by authorized laboratories.Testing performed on the [employer] GeneXpert utilizingreal-time RT-PCR.All SARS CoV2 and positive influenza A/B results arereported to [facility]. 06/17/2024 7:59 AM EST 06/17/2024 8:03 AM EST us Generic External Data Provider LAB MICROBIOLOGY - GENERAL ORDERABLES Final Result LABS [address] [place] [address] [phone] * (ABNORMAL) Urinalysis, Complete, with Reflex to Culture (06/17/2024 7:59 AM EST) Color Urine Yellow LABS Appearance Urine Clear LABS PH 5.5 5.0 - 9.0 LABS Glucose Urine UA Negative Negative mg/dL LABS Urine Blood Moderate (2+)(A) Negative LABS Specific [place] - Urine 1.025 1.005 - 1.025 LABS Urine Protein 300 (3+)(A) Neg-Trace mg/dL LABS Urine Ketones 15 Negative mg/dL LABS Nitrite Urine Negative Negative [facility] Leukocyte Esterase Urine Negative Negative LABS RBC Urine 6-10(A) 0 - 2 /HPF LABS Urine WBC 0-5 0 - 5 /HPF LABS Urine Squamous Epithelial Cell 6-10 0 - 2 /HPF LABS Urine Bacteria Trace None Seen [facility] Hyaline Casts, Urine 6-10 0 - 2 /LPF LABS GRANULAR CASTS (#/HPF) IN URINE Present LABS 06/17/2024 7:59 AM EST 06/17/2024 8:03 AM EST Narrative LABS - 06/17/2024 8:19 AM EST Urine, Clean Catch us Generic External Data Provider LAB URINE ORDERAB LES Final Result Performing Organization Address City/[facility]/ZIP Co de Phone Number LABS [address] [place] [address] [phone] * Lipase (06/17/2024 7:46 AM EST) Lipase 11 8 - 78 U/L [facility] 06/17/2024 7:46 AM EST 06/17/2024 7:51 AM EST Generic External Data Provider LAB BLOOD ORDERAB LES Final Result Performing Organization Address [facility] de Phone Number LABS [address] [place] [phone] * (ABNORMAL) Basic Metabolic Panel (06/17/2024 7:46 AM EST) Pathologist [facility] Sodium 136 135 - 145 mmol/L LABS Potassium 3.9 3.3 - 5.1 mmol/L LABS Chloride 104 96 - 108 mmol/L LABS Carbon Dioxide 20(L) 22 - 29 mmol/L LABS Anion Gap 16 12 - 20 LABS Urea Nitrogen (BUN) 23(H) 9 - 16 mg/dL LABS Creatinine, Serum 0.92 0.5 - 1.4 mg/dL LABS Creatinine Clr Calc Pharmacy 58.0 LABS Comment:Provided height and weight: 157.48 cm,71.7 kg.eGFR (calculated from the MDRD study equation) and eCrCl(calculated from the Cockcroft-Gault equation) are based ondifferent parameters and may not yield comparable results.If eCrCl result is absurd, please check patient'sheight/weight. Estimated Glomerular Filt Rate >60 LABS Comment:Chronic Kidney Disea se: Estimated GFR < 60 mL/min/1.57h6Ravnqb Kidney Disease: Estimated GFR < 15 mL/min/1.73m2 Glucose 133(H) 60 - 115 mg/dL LABS Calcium 9.7 8.4 - 10.2 mg/dL LABS 06/17/2024 7:46 AM EST 06/17/2024 7:51 AM EST Generic External Data Provider LAB BLOOD ORDERAB LES Final Result Performing Organization Address [facility] Phone Number LABS [address] [place] [phone] * (ABNORMAL) Hepatic Function Panel (06/17/2024 7:46 AM EST) [facility] Bilirubin, Total 0.6 0.0 - 1.0 mg/dL LABS Bilirubin, Direct 0.2 0.0 - 0.5 mg/dL LABS Aspartate Amino Transferase 97(H) 5 - 31 U/L LABS Alanine Aminotransferase 86(H) 0 - 31 U/L LABS Total Protein 8.5(H) 6.5 - 8.0 g/dL LABS Albumin Level 4.4 3.5 - 5.0 g/dL LABS Alkaline Phosphatase 126(H) 39 - 117 U/L LABS 06/17/2024 7:46 AM EST 06/17/2024 7:51 AM EST us Generic External Data Provider LAB BLOOD ORDERAB LES Final Result Performing Organization Address [facility] de Phone Number LABS [address] [place] [phone] * (ABNORMAL) CBC auto differential (06/17/2024 7:46 AM EST) Pathologist [facility] White Blood Count 7.4 4.8 - 10.8 X10*3/uL LABS Red Blood Count 4.63 4.20 - 5.50 X10*6/uL LABS Hemoglobin 13.9 12.0 - 16.0 g/dl LABS Hematocrit 42.3 37.0 - 47.0 % LABS Mean Corpuscular Volume 91.4 80.0 - 98.0 fL LABS Mean Corpuscular Hemoglobin 30.0 27.0 - 33.0 pg LABS Mean Corpuscular HGB Conc 32.9 31.0 - 35.0 g/dl LABS Red Cell Distribution Width 12.5 11.0 - 16.0 % LABS Platelet Count 292 160 - 400 X10*3/uL LABS Mean Platelet Volume 9.9 9.4 - 12.3 fL LABS Neutrophils Percent Auto 85.1(H) 45 - 73 % LABS Imm Gran Pct Auto 0.5(H) 0.0 - 0.4 % LABS Lymphocytes Percent Auto 6.6(L) 20 - 40 % LABS Monocytes Percent Auto 7.4 2 - 11 % LABS Eosinophils Percent Auto 0.0 0 - 4 % LABS Basophils Percent Auto 0.4 0 - 2 % LABS NRBC Pct Auto 0.0 0.0 - 0.2 /100WBC LABS Neutrophils Absolute Auto 6.3 2.0 - 8.3 x10*3/uL LABS Imm Gran Abs Auto 0.04(H) 0.00 - 0.03 X10*3/uL LABS Lymphocytes Absolute Auto 0.5(L) 1.2 - 4.9 X10*3/uL LABS Monocytes Absolute Auto 0.6 0.1 - 1.2 X10*3/uL LABS Eosinophils Absolute Auto 0.0 0.0 - 0.4 X10*3/uL LABS Basophils Absolute Auto 0.0 0.0 - 0.2 X10*3/uL LABS NRBC Abs Auto 0.000 0.0 - 0.012 X10*3/uL LABS 06/17/2024 7:46 AM EST 06/17/2024 7:51 AM EST us Generic External Data Provider LAB BLOOD ORDERAB LES Final Result LABS [address] [place] [phone] documented in this encounter Visit Diagnoses Not on filedocumented in this encounter Additional Health Concerns Assessment Noted Time PHQ-9 Depression Total Score: 16 024 8:59 AM EST documented as of this encounter Care Teams Assistant Professor Of Spanish Relationship Specialty Start Date End Date Valentine Rodriguez MD [address] [place] [address] PCP - General Family Medicine 05/25/18 Timmy Contreras FNP [address] [place] [address] Nurse Practitioner Family Medicine 04/13/23 documented as of this encounter
--- OUTSIDE RECORDS SUMMARY | 2024-07-05 09:50 | XMS_ITS | Encounter Summary ---
Author Organization [employer] Address [address] [facility] [address] [place] [address] Care Team Providers Care Diet Counselor Name Role Phone Valentine Rodriguez MD Primary Care Provider +1- [phone] Timmy Contreras Unavailable Unavailable Reason for Visit * Reason Onset Date Comments Durable Medical Equipment 06/22/2024 Encounter Details Date Type Department Care Team (Late st Contact Info) Description 06/22/2024 Telephone [facility] MED[facility] [address] [place] [address] Valentine Rodriguez MD [address] [place], [place] [phone] Durable Medical Equipment Social History Tobacco Use Types Packs/Day Years [...] encounter Miscellaneous Notes * Telephone Encounter - Kimberly Lewis - 06/27/2024 1:41 PM EST Rx for BPM sent electronically to [facility] pharmacy on 06/23. Thread Drawer called pt to confirm request and pt stated DMEs are no longer needed as both BPM and nebulizer w/supplies were received. Thread Drawer confirmed w/pt this message can be disregarded/req cancelled. * Telephone Encounter - Barbara Jones - 06/22/2024 3:53 PM EST Tc from pt requesting new b/p monitor the other one its broke, also requested a nebulizer machine. Any questions contact. [phone] documented in this encounter Plan of Treatment Upcoming Encounters Date Type Department Care Team (Late st Contact Info) Description 08/22/2024 9:00 AM EDT Office Visit [facility] [address] [place] [address] Ryan, Deborah, OD [address] [place] [address] documented as of this encounter Goals Goal [...] documented as of this encounter Care Teams Diet Counselor Relationship Specialty Start Date End Date Valentine Rodriguez MD [address] [place] [address] PCP - General Family Medicine 05/25/18 Timmy Contreras FNP [address] [place] [phone] Nurse Practitioner Family Medicine 04/13/23 documented as of this encounter
--- OUTSIDE RECORDS SUMMARY | 2024-07-05 09:50 | XMS_ITS | Encounter Summary ---
Author Organization [employer] Address [address] [facility] [address] [place] [address] Care Team Providers Care Cinder Crew Worker Name Role Phone Valentine Rodriguez MD Primary Care Provider +1- [phone] Timmy Contreras Unavailable Unavailable Reason for Visit * Reason Comments Med Refill Encounter Details Date Type Department Care Team (Late st Contact Info) Description 11/01/2023 Refill [facility] [address] [place] [address] Timmy Contreras FNP Bipolar disorder in partial remission, most recent episode unspecified type ([facility]) Social History Tobacco Use Types Packs/Day Years [...] Description 08/22/2024 9:00 AM EDT Office Visit [facility] [address] [place] [address] Deborah Davis, OD [address] [place] [address] documented as of this encounter Goals Goal Patient Goal Type Associated Problems Recent Progress Patient-Stated? Author Blood Pressure < 140/90 Blood Pressure 170/92( 025 10:48 AM EST) No Slime Hernandez, PharmD documented as of this encounter Visit Diagnoses Diagnosis Bipolar disorder in partial remission, most recent episode unspecified type ([facility]) documented in this encounter Additional Health Concerns Assessment Noted Time PHQ-9 Depression Total Score: 16 024 8:59 AM EST documented as of this encounter Care Teams Cinder Crew Worker Relationship Specialty Start Date End Date Valentine Rodriguez MD [address] [place] [address] PCP - General Family Medicine 05/25/18 Timmy Contreras FNP [address] [place] [address] Nurse Practitioner Family Medicine 04/13/23 documented as of this encounter
--- OUTSIDE RECORDS SUMMARY | 2024-07-05 09:50 | XMS_ITS | Encounter Summary ---
Author Organization [employer] Address [address] [facility] 7t [place] [address] Care Team Providers Care Human Factors Advisor Lead Name Role Phone Valentine Rodriguez MD Primary Care Provider +1- [phone] Timmy Contreras Unavailable Unavailable Encounter Details Date Type Department Care Team (Late st Contact Info) Description 04/07/2024 Orders Only [facility] External Provider, [facility] History of tobacco use (Primary Dx) Social History Tobacco Use Types Packs/Day Years [...] Description 08/22/2024 9:00 AM EDT Office Visit [facility] [address] [place] [address] Ryan, Deborah, OD [address] [place] [address] documented as of this encounter Goals Goal Patient Goal Type Associated Problems Recent Progress Patient-Stated? Author Blood Pressure < 140/90 Blood Pressure 170/92( 025 10:48 AM EST) No Slime Hernandez, PharmD documented as of this encounter Procedures Procedure Name Priority Date/Time Associated Diagnosis Comments LDCT LUNG SCREENING Routine 04/07/2024 9 :16 AM EST documented in this encounter Results * CT Lung Screening Low dose (04/07/2024 9:16 AM EST) Anatomical Region Laterality Modality Lung Computed Tomogra phy 04/07/2024 9:16 AM EST Narrative 06/09/2024 2:19 PM EST ? [facility] ?[address] ?[place] [address] ? CT Scan Report ? Signed ? Patient: Blcakburn,Sanchez M ?MR#: [id number] ? : 1960 ?Acct:[id number] ? Age/Sex: 63 / F ?ADM Date: 11/14/24 ? Loc: HO.CT ? Attending Dr: Sharlene Iglesias PA-C ? Ordering Physician: Sharlene Iglesias PA-C ?? Date of Service: 04/07/24 ?? Procedure(s): CT lung screening ?? Accession Number(s): [id number] ? cc: Valentine Rodriguez MD; Sharlene Iglesias PA-C ? Report Number: ?? [id number]: Total DLP = ?? 52.00 mGy-cm ?? EXAMINATION: ?? CT LOW-DOSE SCREENING CHEST WITHOUT CONTRAST ? CLINICAL INFORMATION: ?? Personal history of nicotine dependence. Former smoker. The patient has ?? a 40 pack-year history of smoking, having quit 15 years ago. ? COMPARISON: ?? CT low-dose screening chest 04/06/2023. ?? X-ray chest 08/02/2022. ? TECHNIQUE: ?? Multidetector volumetric CT imaging of the chest is performed on a ?? Siemens SOMATOM Definition scanner without contrast using low dose ?? technique. Additional 2D coronal and sagittal reformatted images and ?? axial 3D maximum intensity projection (MIP) images are generated on the ?? CT workstation. ? This CT examination was performed using dose optimization techniques as ?? appropriate, variously including the following: ?? *Automated exposure control ?? *Adjustment of mA and/or kV according to patient size (this includes ?? techniques or standardized protocols for targeted exams where dose is ?? matched to indication/reason for exam; i.e. extremities or head) ?? *Use of iterative reconstruction technique ? TOTAL EXAM DLP: ?? 52 mGy-cm. ? CTDIvol: ?? 1.62 mGy. ? Exam submitted for review 06/09/2024 1:16 PM OPERATIONAL INTELLIGENCE OFFICER. ? FINDINGS: ? PULMONARY NODULES: ?? -There are stable scattered 2 to 3 mm calcified granulomata, benign. ?? -Average diameter 4 mm nodule posterior right apex (series 5, image ?? 64), unchanged. ?? -There are no new or enlarging pulmonary nodules. ? LUNGS: ?? -Mild paraseptal emphysema with apical predominance. ?? -Lungs otherwise clear without evidence of abnormal consolidation or ?? groundglass opacity. ?? -There is no effusion or pneumothorax. ?? -Small airways appear normal. ?? -Central airways are patent and normal. ? MEDIASTINUM: ?? -Normal. ? CORONARY ARTERY CALCIFICATION: Trace LAD calcifications. ? THYROID GLAND: Unremarkable to the extent seen. ? CARDIOVASCULAR STRUCTURES: Aortic and heart size normal. No pericardial ?? effusion. ? CHEST WALL/AXILLA: ?? -No lymphadenopathy or masses. ?? -There are surgical clips in the right axilla. ? UPPER ABDOMEN: ?? -Cholecystectomy. ?? -Remainder of the upper abdominal structures appear normal. ? OSSEOUS STRUCTURES: No suspicious focal findings. ? CT/CT lung screening ?? IMPRESSION: ?? 1. Stable calcified and noncalcified pulmonary nodules. No new or ?? enlarging nodule. ?? 2. No active lung disease. ? ASSESSMENT: ?? 1. Lung-RADS Category 2: Benign appearance or behavior of nodules. ? 2. Lung-RADS Category S: None. ? RECOMMENDATION: ?? Continued routine annual low-dose CT lung screening in 1 year is ?? recommended. An order for CT CHEST LOW DOSE CANCER SCREENING ([id number]) ?? can be placed. ? Electronically signed by: ??Anjum Valencia MD ??06/09/2024 02:17 PM EST RP ? Dictated By: ?Anjum Valencia MD ? Signed By: ?<Electronically signed by Anjum Valencia MD in OV> ?06/09/24 1417 ? DD/ 5 ? TD/TT: 04/07/24921 ? Morphologist: ? Procedure Note Jennyfer Giles - 06/09/[address] [address] [address] Scan Report Signed Patient: Sanchez Blackburn MMR#: [id number] : 1Acct:[id number] Age/Sex: 63 / FADM Date: 04/07/24 Loc: HO.CT Attending Dr: Sharlene Iglesias PA-C Ordering Physician: Sharlene Iglesias PA-C Date of Service: 04/07/24 Procedure(s): CT lung screening Accession Number(s): [id number] cc: Valentine Rodriguez MD; Sharlene Iglesias PA-C Report Number: [id number]: Total DLP = 52.00 mGy-cm EXAMINATION: CT LOW-DOSE SCREENING CHEST WITHOUT CONTRAST CLINICAL INFORMATION: Personal history of nicotine dependence. Former smoker. The patient has a 40 pack-year history of smoking, having quit 15 years ago. COMPARISON: CT low-dose screening chest 04/06/2023. X-ray chest 08/02/2022. TECHNIQUE: Multidetector volumetric CT imaging of the chest is performed on a Siemens SOMATOM Definition scanner without contrast using low dose technique. Additional 2D coronal and sagittal reformatted images and axial 3D maximum intensity projection (MIP) images are generated on the CT workstation. This CT examination was performed using dose optimization techniques as appropriate, variously including the following: *Automated exposure control *Adjustment of mA and/or kV according to patient size (this includes techniques or standardized protocols for targeted exams where dose is matched to indication/reason for exam; i.e. extremities or head) *Use of iterative reconstruction technique TOTAL EXAM DLP: 52 mGy-cm. CTDIvol: 1.62 mGy. Exam submitted for review 06/09/2024 1:16 PM OPERATIONAL INTELLIGENCE OFFICER. FINDINGS: PULMONARY NODULES: -There are stable scattered 2 to 3 mm calcified granulomata, benign. -Average diameter 4 mm nodule posterior right apex (series 5, image 64), unchanged. -There are no new or enlarging pulmonary nodules. LUNGS: -Mild paraseptal emphysema with apical predominance. -Lungs otherwise clear without evidence of abnormal consolidation or groundglass opacity. -There is no effusion or pneumothorax. -Small airways appear normal. -Central airways are patent and normal. MEDIASTINUM: -Normal. CORONARY ARTERY CALCIFICATION: Trace LAD calcifications. THYROID GLAND: Unremarkable to the extent seen. CARDIOVASCULAR STRUCTURES: Aortic and heart size normal. No pericardial effusion. CHEST WALL/AXILLA: -No lymphadenopathy or masses. -There are surgical clips in the right axilla. UPPER ABDOMEN: -Cholecystectomy. -Remainder of the upper abdominal structures appear normal. OSSEOUS STRUCTURES: No suspicious focal findings. CT/CT lung screening IMPRESSION: 1. Stable calcified and noncalcified pulmonary nodules. No new or enlarging nodule. 2. No active lung disease. ASSESSMENT: 1. Lung-RADS Category 2: Benign appearance or behavior of nodules. 2. Lung-RADS Category S: None. RECOMMENDATION: Continued routine annual low-dose CT lung screening in 1 year is recommended. An order for CT CHEST LOW DOSE CANCER SCREENING ([id number]) can be placed. Electronically signed by: Anjum Valencia MD 06/09/2024 02:17 PM EST RP Dictated By: Anjum Valencia MD Signed By: <Electronically signed by Anjum Valencai MD in OV> 06/09/24 1417 DD/ 5 TD/TT: 04/07/24921 Morphologist: [facility] External Provider IMG CT PROCEDURES Final Result documented in this encounter Visit Diagnoses Diagnosis History of tobacco use- Primary Personal history of tobacco use, presenting hazards to health documented in this encounter Additional Health Concerns Assessment Noted Time PHQ-9 Depression Total Score: 16 024 8:59 AM EST documented as of this encounter Care Teams Human Factors Advisor Lead Relationship Specialty Start Date End Date Valentine Rodriguez MD [address] [place] [address] PCP - General Family Medicine 05/25/18 Timmy Contreras FNP [address] [place] [address] Nurse Practitioner Family Medicine 04/13/23 documented as of this encounter
--- OUTSIDE RECORDS SUMMARY | 2024-07-05 09:50 | XMS_ITS | Encounter Summary ---
Author Organization [employer] Address [address] [facility] 7 [place] [address] Care Team Providers Care Scrap Handler Name Role Phone aVlentine Rodriguez MD Primary Care Provider +1- [phone] Timmy Contreras Unavailable Unavailable Reason for Visit * Reason Comments Med Refill Encounter Details Date Type Department Care Team (Late st Contact Info) Description 11/01/[address] [facility] [address] [place] [address] Valentine Rodriguez MD [address] [place] [address] Fibromyalgia Social History Tobacco Use Types Packs/Day [...] Description 08/22/2024 9:00 AM EDT Office Visit [facility] [address] [place] [address] Deborah Davis, OD [address] [place] [address] documented as of this encounter Goals Goal [...] documented as of this encounter Care Teams Scrap Handler Relationship Specialty Start Date End Date Valentine Rodriguez MD [address] [place] [address] PCP - General Family Medicine 05/25/18 Timmy Contreras FNP [address] [place] [address] Nurse Practitioner Family Medicine 04/13/23 documented as of this encounter
--- OUTSIDE RECORDS SUMMARY | 2024-07-05 09:50 | XMS_ITS | Encounter Summary ---
Author Organization [employer] Address [address] [facility] [address] [place] [address] Care Team Providers Care Nremt Name Role Phone Valentine Rodriguez MD Primary Care Provider +1- [phone] Timmy Contreras Unavailable Unavailable Encounter Details Date Type Department Care Team (Late st Contact Info) Description 08/07/2023 Orders Only [facility] [address] [place], [place] [phone] Valentine Rodriguez MD [address] [place], [place] [phone] Polymyalgia rheumatica (CMS/HCC) (Primary Dx) Social History Tobacco Use Types [...] Description 08/22/2024 9:00 AM EDT Office Visit [facility] [address] [place] [address] Deborah Davis, OD [address] [place] [address] documented as of this encounter Goals Goal Patient Goal Type Associated Problems Recent Progress Patient-Stated? Author Blood Pressure < 140/90 Blood Pressure 170/92( 025 10:48 AM EST) No Slime Hernandez, PharmD documented as of this encounter Visit Diagnoses Diagnosis Polymyalgia rheumatica ([facility])- Primary Polymyalgia rheumatica documented in this encounter Additional Health Concerns Assessment Noted Time PHQ-9 Depression Total Score: 16 024 8:59 AM EST documented as of this encounter Care Teams Nremt Relationship Specialty Start Date End Date Valentine Rodriguez MD [address] [place] [address] PCP - General Family Medicine 05/25/18 Timmy Contreras FNP [address] [place] [address] Nurse Practitioner Family Medicine 04/13/23 documented as of this encounter
--- OUTSIDE RECORDS SUMMARY | 2024-07-05 09:51 | XMS_ITS | Encounter Summary ---
Author Organization [employer] Address [address] [facility] [address] [place] [address] Care Team Providers Care Requirements Engineer Name Role Phone Valentine Rodriguez MD Primary Care Provider +1- [phone] Timmy Contreras Unavailable Unavailable Encounter Details Date Type Department Care Team ([facility] st Contact Info) Description 06/23/2024 Orders Only [facility] [address] [place], [place] [phone] Valentine Rodriguez MD [address] [place], [place] [phone] Essential hypertension Social History Tobacco Use Types Packs/Day Years Used Date Smoking Tobacco: Former Cigarettes Passive Smoke Exposure: Past Smokeless Tobacco: Never Alcohol Use Standard Drinks/Week [...] 9:00 AM EDT Office Visit [facility] [address] [place] [address] Deborah Davis, OD [address] [place] [address] documented as of this encounter Goals Goal Patient Goal Type Associated Problems Recent Progress Patient-Stated? Author Blood Pressure < 140/90 Blood Pressure 170/92( 025 10:48 AM EST) No Slime Hernandez PharmD documented as of this encounter Visit Diagnoses Diagnosis Essential hypertension Unspecified essential hypertension documented in this encounter Additional Health Concerns Assessment Noted Time PHQ-9 Depression Total Score: 16 024 8:59 AM EST documented as of this encounter Care Teams Requirements Engineer Relationship Specialty Start Date End Date Valentine Rodriguez MD [address] [place] [address] PCP - General Family Medicine 05/25/18 Timmy Contreras FNP [address] [place] [address] Nurse Practitioner Family Medicine 04/13/23 documented as of this encounter
--- OUTSIDE RECORDS SUMMARY | 2024-07-05 09:51 | XMS_ITS | Encounter Summary ---
Author Organization [employer] Address [address] [facility] [address] [place] [address] Care Team Providers Care Professional Skater Name Role Phone Valentine Rodriguez MD Primary Care Provider +1- [phone] Timmy Contreras Unavailable Unavailable Encounter Details Date Type Department Care Team ([facility] st Contact Info) Description 06/23/2024 Telephone [facility] [address] [place] [phone] Jonathan Rubalcava MD [address] [place] [address] Social History Tobacco Use Types Packs/Day Years [...] encounter Miscellaneous Notes * Telephone Encounter - Jonathan Rubalcava MD - 06/23/2024 10:56 AM EST Repeat LFT. documented in this encounter Plan of Treatment Upcoming Encounters Date Type Department Care Team (Late st Contact Info) Description 08/22/2024 9:00 AM EDT Office Visit [facility] [address] [place] [address] Deborah Davis, OD [address] [place] [address] documented as of this encounter Goals Goal [...] documented as of this encounter Care Teams Professional Skater Relationship Specialty Start Date End Date Valentine Rodriguez MD [address] [place] [address] PCP - General Family Medicine 05/25/18 Timmy Contreras FNP [address] [place] [address] Nurse Practitioner Family Medicine 04/13/23 documented as of this encounter
--- OUTSIDE RECORDS SUMMARY | 2024-07-05 09:51 | XMS_ITS | Encounter Summary ---
Author Organization [employer] Address [address] [facility] [address] [place] [address] Care Team Providers Care Tile Shader Name Role Phone Valentine Rodriguez MD Primary Care Provider +1- [phone] Timmy Contreras Unavailable Unavailable Reason for Visit * Reason Onset Date Comments Call Back Request 06/23/2024 Encounter Details Date Type Department Care Team ([facility] st Contact Info) Description 06/23/2024 Telephone [facility] [address] [place] [address] Valentine Rodriguez MD [address] [place], [place] [phone] Call Back Request Social History Tobacco Use Types Packs/Day Years [...] encounter Miscellaneous Notes * Telephone Encounter - Dianna Gunderson RN - 06/23/2024 11:12 AM EST Call returned to patient regarding message below. Informed patient that Dr. Rubalcava reviewed her lab results from when she was at the hospital. Her AST/ ALT were elevated. Advised patient that an order was placed for patient to repeat this lab next week. Patient verbalizes understanding and agreement that she will return to [facility] early next week for repeat LFT. All questions [place] [id number] Karin Initially - when on line patient bilingual disconnected from interpretor. This patient was seen in [facility] today. Recent Influenza A diagnosed in [facility]. Today, she presented with symptoms of asthma exacerbation (Prednisone prescribed). However, looking at the ER lab, she had elevated AST/ALT (I suspect from her Influenza A infection). I tried to call her number, but no answer. I submitted repeat LFT order. Can you reach out to the patient to return for repeat LFT this or next week please? Thank you! Jonathan Rubalcava MD * Telephone Encounter - Barbara Oakes Robert - 06/23/2024 11:04 AM EST Tc from pt returning call. States received a call from Dr. Rubalcava, pt spouse responded phone but Dr requested a call back from pt Sanchez. Contact Sanchez. [phone] anguillan documented in this encounter Plan of Treatment Upcoming Encounters Date Type Department Care Team (Late st Contact Info) Description 08/22/2024 9:00 AM EDT Office Visit [facility] [address] [place], [place] [phone] Deborah Davis, OD [address] [place] [address] documented as of this encounter Goals Goal Patient Goal Type Associated Problems Recent Progress Patient-Stated? Author Blood Pressure < 140/90 Blood Pressure 170/92( 025 10:48 AM EST) No Piers-Gambl eSlime, PharmD documented as of this encounter Visit Diagnoses Not on filedocumented in this encounter Additional Health Concerns Assessment Noted Time PHQ-9 Depression Total Score: 16 024 8:59 AM EST documented as of this encounter Care Teams Tile Shader Relationship Specialty Start Date End Date Valentine Rodriguez MD [address] [place], [place] PCP - General Family Medicine 05/25/18 Timmy Contreras FNP [address] [place] [address] Nurse Practitioner Family Medicine 04/13/23 documented as of this encounter
--- OUTSIDE RECORDS SUMMARY | 2024-07-05 09:51 | XMS_ITS | Clinical Summary ---
Author Organization [employer] Address [address] [facility] [address] [place] [address] Care Team Providers Care Treatment Manager Name Role Phone Valentine Rodriguez MD Primary Care Provider [phone] Timmy Contreras Unavailable Unavailable Allergies No known active allergies Medications cholecalciferol (Vitamin D High Potency) 25 MCG (1000 UT) capsuleIndicati ons:Vitamin D deficiency Take 1 capsule (25 mcg) by mouth in the morning. 90 capsule 3 023 Active sennosides (Senokot) 8.6 MG tabletIndicatio ns:Constipation , unspecified constipation type take 1 or 2 tablet by oral route every day as needed for constipation as needed 60 tablet 11 023 Active cyclobenzaprine (Flexeril) 10 MG tabletIndicatio ns:Fibromyalgia TAKE 1 TABLET BY MOUTH DAILY AT BEDTIME NEEDED FOR MUSCLE PAIN DO NOT DRIVE WHILE TAKING 30 tablet 3 024 Active mirtazapine (Remeron) 45 MG tabletIndicatio ns:Bipolar disorder in partial remission, most recent episode unspecified type (CMS/HCC) Take 1 tablet (45 mg) by mouth at bedtime. 90 tablet 1 024 Active clonazePAM (KlonoPIN) 2 MG tabletIndicatio ns:Bipolar disorder in partial remission, most recent episode unspecified type (CMS/HCC) TAKE 1 TABLET BY MOUTH 2 TO 3 TIMES DAILY NEEDED FOR ANXIETY Do not start before August 07, 2023. 75 tablet 3 024 Active cyanocobalamin (Vitamin B-12) 100 MCG tabletIndicatio ns:Fibromyalgia TAKE 1 TABLET BY MOUTH EVERY DAY 90 tablet 3 024 Active omeprazole (PriLOSEC) [address] capsuleIndicati ons:Chronic GERD TAKE 1 CAPSULE BY MOUTH EVERY DAY 90 capsule 3 024 Active melatonin 5 MG tabletIndicatio ns:Bipolar disorder in partial remission, most recent episode unspecified type (CMS/HCC) Take 1 tablet (5 mg) by mouth if needed at bedtime (sleep). 90 tablet 1 024 Active ziprasidone (Geodon) 60 MG capsuleIndicati ons:Bipolar disorder in partial remission, most recent episode unspecified type (CMS/HCC) Take 1 capsule (60 mg) by mouth with breakfast and with evening meal. 180 capsule 024 Active fluticasone furoate (Arnuity Ellipta) 100 MCG/ACT inhalerIndicati ons:Well controlled intermittent asthma INHALE 1 PUFF BY MOUTH EVERY DAY AT THE SAME TIME RINSE MOUTH AFTER USING. 30 each 2 024 Active loratadine (Claritin) 10 MG tabletIndicatio ns:Seasonal allergies TAKE 1 TABLET BY MOUTH DAILY IN THE MORNING 90 tablet 3 024 Active atorvastatin (Lipitor) 10 MG tabletIndicatio ns:Dyslipidemia TAKE 1 TABLET BY MOUTH DAILY IN THE MORNING 90 tablet 3 024 Active divalproex (Depakote) 125 MG EC tabletIndicatio ns:Bipolar disorder in partial remission, most recent episode unspecified type (CMS/HCC) TAKE 4 TABLETS BY MOUTH EVERY 12 HOURS 240 tablet 3 024 Active Acetaminophen Extra Strength 500 MG tabletIndicatio ns:Fibromyalgia TAKE 1 TABLET BY MOUTH EVERY 8 HOURS NEEDED FOR MILD PAIN 30 tablet 1 025 Active albuterol (Ventolin HFA) 108 (90 Base) MCG/ACT inhalerIndicati ons:Moderate persistent asthma with exacerbation Inhale 2 puffs every 6 (six) hours if needed for wheezing or shortness of breath. 18 g 11 025 2025 Active Blood Pressure kitIndications: Essential hypertension Check bp three times a week 1 kit 025 Active Blood Pressure kitIndications: Essential hypertension Check bp three times a week 1 kit 025 Active atenolol (Tenormin) 25 MG tabletIndicatio ns:Essential hypertension Take 1 tablet (25 mg) by mouth Once per day. 90 tablet 3 025 Active lisinopril 20 MG tabletIndicatio ns:Essential hypertension TAKE 1 TABLET BY MOUTH ONCE DAILY 90 tablet 3 025 Active Ventolin HFA 108 (90 Base) MCG/ACT inhalerIndicati ons:Wheeze INHALE 2 PUFFS EVERY 4 HOURS NEEDED FOR SHORTNESS OF BREATH 18 g 023 2024 Discontinued(R eorder (will not trigger notification to Pharmacy)) atenolol (Tenormin) 25 MG tabletIndicatio ns:Essential hypertension Take 1 tablet (25 mg) by mouth in the morning. 90 tablet 3 023 2024 Discontinued(R eorder (will not trigger notification to Pharmacy)) Acetaminophen Extra Strength 500 MG tabletIndicatio ns:Fibromyalgia TAKE 1 TABLET BY MOUTH EVERY 8 HOURS NEEDED FOR MILD PAIN 30 tablet 1 024 2024 Discontinued lisinopril 20 MG tabletIndicatio ns:Essential hypertension TAKE 1 TABLET BY MOUTH ONCE DAILY 90 tablet 3 024 2024 Discontinued(R eorder (will not trigger notification to Pharmacy)) atenolol (Tenormin) 25 MG tabletIndicatio ns:Essential hypertension Take 1 tablet (25 mg) by mouth Once per day. 90 tablet 3 025 2024 Discontinued(R eorder (will not trigger notification to Pharmacy)) predniSONE (Deltasone) 20 MG tabletIndicatio ns:Moderate persistent asthma with exacerbation Take 2 tablets (40 mg) by mouth Once per day for 5 days. 10 tablet 025 2024 Active Problems Patient Care Coordination No te Formatting of this note migh t be different from the original. Hypertension is followed with pharmacy [facility] by Dr. Slime Ruiz PharmD. Problem Noted Date Diagnosed Date Stress incontinence of urine 08/07/2023 Assessment & Plan (08/21/2023 12:47 PM EDT): Pull ups requested 08/21/23 Assessment & Plan (08/07/2023 9:16 AM EDT): Interfering with ADLs -Rx for large pullups Preventative health care 01/21/2023 Overview (01/21/2023): -next physical exam due after 01/22/2024 -eye care facilitated by [facility] -dental home is [facility]. Assessment & Plan (08/05/2023 10:58 AM EDT): -next physical exam due after 01/22/2024 -eye care facilitated by [facility] -dental home is [facility]. Assessment & Plan (01/21/2023 10:00 AM EDT): -next physical exam due after 01/22/2024 -eye care facilitated by [facility] -dental home is [facility]. Tubular adenoma 12/18/2022 Overview (12/23/2023): -tubular adenoma 12/16/[address] Warner recommending next colonoscopy in 1 year due to it being 1 cm in size -tubular adenoma 726/[address] Warner Assessment & Plan (08/05/2023 10:53 AM EDT): -tubular adenoma 12/16/[address] Warner recommending next colonoscopy in 1 year due to it being 1 cm in size -referral to Dr. Warner on 08/05/2023 Assessment & Plan (01/21/2023 10:31 AM EDT): -tubular adenoma 12/16/[address] Warner recommending next colonoscopy in 1 year due to it being 1 cm in Fibromyalgia 05/30/2022 Overview (08/21/2023): She had no improvement with NSAIDs, gabapentin, acetaminophen, muscle relaxer, PT, Lyrica or accupuncture . I explained she is not a candidate for chronic narcotics as they are not indicated for fibromyalgia and I do not see how they would benefit her form a functional or health promoting standpoint. -cervical, thoracic and lumbar spine films 04/25/15 without evidence of metastatic disease -Lyrica 150mg po bid restarted 03/29/2021, increased to max dose 225bid 05/13/2021 but not helping so we discussed weaning plan 06/19/21 -Continue multimodal approach including treatment for depression, sleep and stress management. -referral to pain management There is moderate evidence for efficacy for aerobic exercise, cognitive behavioral therapy, patient education, and group therapy. There is also evidence for acupuncture, hypnotherapy, biofeedback and balneotherapy. She is not interested at this time. There is some weaker evidence for chiropractic therapy, massage, electrotherapy and ultrasound. There is no evidence that trigger point injections or opioids are beneficial in fibromyalgia. Pharmacologic options include muscle relaxants, gabapentin, pregabalin, and duloxetine, but are the lest effective of all strategies. She has tried all of these without improvement in symptoms. I offered to restart any of these medications including gabapentin, Lyrica or cyclobenzaprine. She says she is not interested in this. -on 08/05/2023 significant for mild elevated ESR and CRP. Trial prednisone for possible polymyalgia rheumatica. No improvement after 2 weeks, will wean off prednisone starting 08/21/23. She agrees with the plan. Assessment & Plan (08/21/2023 12:37 PM EDT): She had no improvement with NSAIDs, gabapentin, acetaminophen, muscle relaxer, PT, Lyrica or accupuncture . I explained she is not a candidate for chronic narcotics as they are not indicated for fibromyalgia and I do not see how they would benefit her form a functional or health promoting standpoint. -cervical, thoracic and lumbar spine films 04/25/15 without evidence of metastatic disease -Lyrica 150mg po bid restarted 03/29/2021, increased to max dose 225bid 05/13/2021 but not helping so we discussed weaning plan 06/19/21 -Continue multimodal approach including treatment for depression, sleep and stress management. -referral to pain management There is moderate evidence for efficacy for aerobic exercise, cognitive behavioral therapy, patient education, and group therapy. There is also evidence for acupuncture, hypnotherapy, biofeedback and balneotherapy. She is not interested at this time. There is some weaker evidence for chiropractic therapy, massage, electrotherapy and ultrasound. There is no evidence that trigger point injections or opioids are beneficial in fibromyalgia. Pharmacologic options include muscle relaxants, gabapentin, pregabalin, and duloxetine, but are the lest effective of all strategies. She has tried all of these without improvement in symptoms. I offered to restart any of these medications including gabapentin, Lyrica or cyclobenzaprine. She says she is not interested in this. -on 08/05/2023 significant for mild elevated ESR and CRP. Trial prednisone for possible polymyalgia rheumatica. No improvement after 2 weeks, will wean off prednisone starting 08/21/23. She agrees with the plan. Assessment & Plan (08/05/2023 10:53 AM EDT): She had no improvement with NSAIDs, gabapentin, acetaminophen, muscle relaxer, PT, Lyrica or accupuncture . I explained she is not a candidate for chronic narcotics as they are not indicated for fibromyalgia and I do not see how they would benefit her form a functional or health promoting standpoint. -cervical, thoracic and lumbar spine films 04/25/15 without evidence of metastatic disease -Lyrica 150mg po bid restarted 03/29/2021, increased to max dose 225bid 05/13/2021 but not helping so we discussed weaning plan 06/19/21 -Continue multimodal approach including treatment for depression, sleep and stress management. -referral to pain management There is moderate evidence for efficacy for aerobic exercise, cognitive behavioral therapy, patient education, and group therapy. There is also evidence for acupuncture, hypnotherapy, biofeedback and balneotherapy. She is not interested at this time. There is some weaker evidence for chiropractic therapy, massage, electrotherapy and ultrasound. There is no evidence that trigger point injections or opioids are beneficial in fibromyalgia. Pharmacologic options include muscle relaxants, gabapentin, pregabalin, and duloxetine, but are the lest effective of all strategies. She has tried all of these without improvement in symptoms. I offered to restart any of these medications including gabapentin, Lyrica or cyclobenzaprine. She says she is not interested in this. -recheck labs on 08/05/2023, consider tx for polymyalgia rheumatica based on results Assessment & Plan (01/21/2023 9:07 AM EDT): She had no improvement with NSAIDs, gabapentin, acetaminophen, muscle relaxer, PT, Lyrica or accupuncture . I explained she is not a candidate for chronic narcotics as they are not indicated for fibromyalgia and I do not see how they would benefit her form a functional or health promoting standpoint. -cervical, thoracic and lumbar spine films 04/25/15 without evidence of metastatic disease -Lyrica 150mg po bid restarted 03/29/2021, increased to max dose 225bid 05/13/2021 but not helping so we discussed weaning plan 06/19/21 -Continue multimodal approach including treatment for depression, sleep and stress management. -referral to pain management There is moderate evidence for efficacy for aerobic exercise, cognitive behavioral therapy, patient education, and group therapy. There is also evidence for acupuncture, hypnotherapy, biofeedback and balneotherapy. She is not interested at this time. There is some weaker evidence for chiropractic therapy, massage, electrotherapy and ultrasound. There is no evidence that trigger point injections or opioids are beneficial in fibromyalgia. Pharmacologic options include muscle relaxants, gabapentin, pregabalin, and duloxetine, but are the lest effective of all strategies. She has tried all of these without improvement in symptoms. I offered to restart any of these medications including gabapentin, Lyrica or cyclobenzaprine. She says she is not interested in this. Assessment & Plan (05/30/2022 12:01 PM EST): She had no improvement with NSAIDs, gabapentin, acetaminophen, muscle relaxer, PT, Lyrica or accupuncture . I explained she is not a candidate for chronic narcotics as they are not indicated for fibromyalgia and I do not see how they would benefit her form a functional or health promoting standpoint. -cervical, thoracic and lumbar spine films 04/25/15 without evidence of metastatic disease -Lyrica 150mg po bid restarted 03/29/2021, increased to max dose 225bid 05/13/2021 but not helping so we discussed weaning plan 06/19/21 -Continue multimodal approach including treatment for depression, sleep and stress management. -referral to pain management There is moderate evidence for efficacy for aerobic exercise, cognitive behavioral therapy, patient education, and group therapy. There is also evidence for acupuncture, hypnotherapy, biofeedback and balneotherapy. She is not interested at this time. There is some weaker evidence for chiropractic therapy, massage, electrotherapy and ultrasound. There is no evidence that trigger point injections or opioids are beneficial in fibromyalgia. Pharmacologic options include muscle relaxants, gabapentin, pregabalin, and duloxetine, but are the lest effective of all strategies. She has tried all of these without improvement in symptoms. I offered to restart any of these medications including gabapentin, Lyrica or cyclobenzaprine. She says she is not interested in this. History of tobacco use 05/30/2022 Overview (06/10/2024): -quit 07/2015 -seen by lung cancer screening at [facility] -[facility] . Lung-RADS Category 2: Benign appearance or behavior of nodules. Lung-RADS Category S: None. -Continued routine annual low-dose CT lung screening in 1 year is recommended. Assessment & Plan (01/21/2023 9:07 AM EDT): -quit 07/2015 -seen by lung cancer screening at [facility] Assessment & Plan (05/30/2022 12:03 PM EST): -quit 07/2015 -seen by lung cancer screening at [facility] Other osteoporosis without current pathological fracture 05/30/2022 Overview (01/21/2023): -Followed by Dr. Aly on Vitamin D 1000 daily -DEXA for November 2021 Assessment & Plan (01/21/2023 9:08 AM EDT): -Followed by Dr. Aly on Vitamin D 5,000 daily. -DEXA for November 2021 Assessment & Plan (05/30/2022 12:04 PM EST): -Followed by Dr. Aly on Vitamin D 5,000 daily. -DEXA for November 2021 Essential hypertension 05/01/2022 Overview (01/20/2023): -Blood pressure is at goal -Continue lifestyle modifications -Continue current medications Assessment & Plan (08/05/2023 10:57 AM EDT): -Blood pressure is at goal -Continue lifestyle modifications -Continue current medications Assessment & Plan (01/21/2023 9:07 AM EDT): -Blood pressure is at goal -Continue lifestyle modifications -Continue current medications Basal cell carcinoma of skin 07/06/2021 Overview (05/30/2022): Pt had left lower eye lesion. 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 Pt had basal cell carcinoma of the left lower lid excised by Dr. Sims at [facility] Plastic surgery on 01/07/2011. The area of the scar has not grown since surgery. PT had full thickness wedge resection of left lower lid with Dr. Tam Ovalles on 10/31/14. Assessment & Plan (08/03/2023 11:19 AM EDT): Pt had left lower eye lesion. 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 Pt had basal cell carcinoma of the left lower lid excised by Dr. Sims at [facility] Plastic surgery on 01/07/2011. The area of the scar has not grown since surgery. PT had full thickness wedge resection of left lower lid with Dr. Tam Ovalles on 10/31/14. Assessment & Plan (01/21/2023 9:06 AM EDT): Pt had left lower eye lesion. 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 Pt had basal cell carcinoma of the left lower lid excised by Dr. Sims at [facility] Plastic surgery on 01/07/2011. The area of the scar has not grown since surgery. PT had full thickness wedge resection of left lower lid with Dr. Tam Ovalles on 10/31/14. Assessment & Plan (05/30/2022 12:07 PM EST): Pt had left lower eye lesion. 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 Pt had basal cell carcinoma of the left lower lid excised by Dr. Sims at [facility] Plastic surgery on 01/07/2011. The area of the scar has not grown since surgery. PT had full thickness wedge resection of left lower lid with Dr. Tam Ovalles on 10/31/14. BRCA2 gene mutation positive 07/06/2021 Overview (01/21/2023): S/p oophorectomy 09/04/[address] Erwin. Pathology revealed right ovary and fallopian tube, left adnexa, no left ovarian tissue identified. She s/p bilateral mastectomy. She has discussed this with her sons who may also be carriers. Seen Dr Ramsey with Oncology on 01/06/2023. Follow up in 1 year. Assessment & Plan (01/21/2023 10:31 AM EDT): S/p oophorectomy 09/04/[address] Erwin. Pathology revealed right ovary and fallopian tube, left adnexa, no left ovarian tissue identified. She s/p bilateral mastectomy. She has discussed this with her sons who may also be carriers. Seen Dr Ramsey with Oncology on 01/06/2023. Follow up in 1 year. Assessment & Plan (05/30/2022 12:08 PM EST): S/p oophorectomy 09/04/[address] Erwin. Pathology revealed right ovary and fallopian tube, left adnexa, no left ovarian tissue identified. She s/p bilateral mastectomy. She has discussed this with her sons who may also be carriers. Lung nodule 07/06/2021 Overview (08/05/2023): -CT scan 01/02/2020 was category 2 benign, recommending annual CT ordered by Dr. Maral tSreeter MD in lung cancer screening program. - Dr. Streeter's office will contact her when the are resuming testing which is held due to the COVID pandemic Assessment & Plan (01/21/2023 9:07 AM EDT): -CT scan 01/02/2020 was category 2 benign, recommending annual CT ordered by Dr. Maral Streeter MD in lung cancer screening program. - Dr. Streeter's office will contact her when the are resuming testing which is held due to the COVID pandemic Assessment & Plan (05/30/2022 12:04 PM EST): -CT scan 01/02/2020 was category 2 benign, recommending annual CT ordered by Dr. Maral Streeter MD in lung cancer screening program. - Dr. Streeter's office will contact her when the are resuming testing which is held due to the COVID pandemic Postmenopausal osteoporosis 07/06/2021 Vitamin D deficiency 07/06/2021 Overview (01/21/2023): Vitamin D,1,25 (OH)2, Total Date Value Ref Range Status 06/05/2022 95 (H) 18 - 72 pg/mL Final -continue vit D 1000 Well controlled intermittent asthma 03/04/2018 Muscle pain 05/01/2014 Dyslipidemia 09/03/2012 Overview (08/05/2023): Lab Results Component Value Date CHOLESTEROL 182 06/05/2022 LDLCHOL 108 (H) 06/05/2022 LDLCHOL 177 (H) 11/15/2021 LDLCHOL 144 (H) 05/20/2021 TRIG 75 06/05/2022 HDLCHOL 58 06/05/2022 CHOLHDLRAT 3.1 06/05/2022 -continue lifestyle modifications Assessment & Plan (08/05/2023 10:57 AM EDT): Lab Results Component Value Date CHOLESTEROL 182 06/05/2022 LDLCHOL 108 (H) 06/05/2022 LDLCHOL 177 (H) 11/15/2021 LDLCHOL 144 (H) 05/20/2021 TRIG 75 06/05/2022 HDLCHOL 58 06/05/2022 CHOLHDLRAT 3.1 06/05/2022 Assessment & Plan (01/21/2023 9:07 AM EDT): Lab Results Component Value Date CHOLESTEROL 182 06/05/2022 LDLCHOL 108 (H) 06/05/2022 LDLCHOL 177 (H) 11/15/2021 LDLCHOL 144 (H) 05/20/2021 TRIG 75 06/05/2022 HDLCHOL 58 06/05/2022 CHOLHDLRAT 3.1 06/05/2022 -continue lifestyle modifications 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 - S/p Lazer CO2 May 2012. Pt was followed by Dr. Rafy Holley who retired -Followed up with Dr. Malik on 05/26/2017- pap smear was abnormal - Contesting was 4/3/ ASCUS HPV positive. - Colpo was done on 11/2018 recommending if ECC was negative follow up pap in 1 year. -Pap 12/10/2020 NILM HPV negative -Pap requested on 08/05/2023 Assessment & Plan (08/05/2023 10:56 AM EDT): VAIN III (vaginal intraepithelial neoplasia III) diagnosed 2011. - S/p Lazer CO2 May 2012. Pt was followed by Dr. Rafy Holley who retired -Followed up with Dr. Malik on 05/26/2017- pap smear was abnormal - Contesting was 4/3/ ASCUS HPV positive. - Colpo was done on 11/2018 recommending if ECC was negative follow up pap in 1 year. -Pap 12/10/2020 NILM HPV negative -Pap requested on 08/05/2023 Assessment & Plan (01/21/2023 9:06 AM EDT): VAIN III (vaginal intraepithelial neoplasia III) diagnosed 2011. - S/p Lazer CO2 May 2012. Pt was followed by Dr. Rafy Holley who retired -Followed up with Dr. Malik on 05/26/2017- pap smear was abnormal - Contesting was 4/3/19 ASCUS HPV positive. - Colpo was done on 11/2018 recommending if ECC was negative follow up pap in 1 year. -Pap 12/10/2020 NILM HPV ngeagive Assessment & Plan (05/30/2022 12:06 PM EST): VAIN III (vaginal intraepithelial neoplasia III) diagnosed 2011. - S/p Lazer CO2 May 2012. Pt was followed by Dr. Rafy Holley who retired, last [employer] visit was 11/2020. (note requested) - Followed up with Dr. Malik on 05/26/2017- pap smear was abnormal - Contesting was 4/3/19 ASCUS HPV positive. - Colpo was done on 11/2018 recommending if ECC was negative follow up pap in 1 year. -Pap 12/10/2020 NILM HPV ngeagive Cervical intraepithelial neoplasia grade 2 01/08 Overview (08/05/2023): -Followed up with Dr. Malik on 05/26/2017- pap smear was abnormal - Contesting was 4/3/19 ASCUS HPV positive. - Colpo was done on 11/2018 recommending if ECC was negative follow up pap in 1 year. -Pap 12/10/2020 NILM HPV negative -Pap requested on 08/05/2023 Assessment & Plan (08/05/2023 12:24 PM EDT): -Followed up with Dr. Malik on 05/26/2017- pap smear was abnormal - Contesting was 4/3/19 ASCUS HPV positive. - Colpo was done on 11/2018 recommending if ECC was negative follow up pap in 1 year. -Pap 12/10/2020 NILM HPV negative -Pap requested on 08/05/2023 Assessment & Plan (01/21/2023 9:06 AM EDT): -Followed up with Dr. Malik on 05/26/2017- pap smear was abnormal - Contesting was 4/3/19 ASCUS HPV positive. - Colpo was done on 11/2018 recommending if ECC was negative follow up pap in 1 year. -Pap 12/10/2020 NILM HPV negative Assessment & Plan (05/30/2022 12:06 PM EST): -Followed up with Dr. Malik on 05/26/2017- pap smear was abnormal - Contesting was 08/25/18 ASCUS HPV positive. - Colpo was done on 11/2018 recommending if ECC was negative follow up pap in 1 year. -Pap 12/10/2020 NILM HPV negative Anxiety 11/14/2011 Bipolar disorder 11/14/2011 Overview (09/30/2023): -Followed by therapist and psychiatrist with [facility] Assessment & Plan (06/22/2023 9:30 AM EST): She is doing quite well. Mood swings durably controlled, depression is also more manageable, anxiety persists. Struggles with chronic pain and limited ability to do much activity. Also worries about recurrence of cancer. PMH: Multiple cancer types, fibromyalgia Although she says she is taking all as directed, based on pharmacy fill data it seems she may be skipping several meds. Follows with pharmacy [facility] program but has declined [facility] program. Continue medications: Clonazepam 2 mg 2-3 times daily as needed, Depakote 125 mg 4 tablets (500 mg) BID, Mirtazapine 45 mg at bedtime, Geodon 60 mg BID, and Melatonin 5 mg at bedtime prn. On 02/16/2023 provider notified patient that I would be retiring within the next year or so. F/U with therapist as usual and with me in 2 months. Pt will transfer care to agency psychiatric prescriber at that time. She agrees with the plan. Assessment & Plan (04/20/2023 9:25 AM EST): Mood swings durably controlled, depression is also more manageable. Struggles with chronic pain and limited ability to do much activity. Also worries about recurrence of cancer. PMH: Multiple cancer types, fibromyalgia Although she says she is taking all as directed, based on pharmacy fill data it seems she may be skipping several meds. Follows with pharmacy MTM program but has declined [facility] program. Continue medications: Clonazepam 2 mg 2-3 times daily as needed, Depakote 125 mg 4 tablets (500 mg) BID, Mirtazapine 45 mg at bedtime, Geodon 60 mg BID, and Melatonin 5 mg at bedtime prn. On 02/16/2023 provider notified patient that I would be retiring within the next year or so. Pt has discussed with her therapist who will refer to agency psychiatric prescriber. F/U with therapist as usual and with me in 2 months. She agrees with the plan. Assessment & Plan (02/16/2023 9:28 AM EDT): Mood swings durably controlled, depression is also more manageable. Struggles with chronic pain and limited ability to do much activity. Also worries about recurrence of cancer. PMH: Multiple cancer types, pending repeat genetic testing Continue medications: Clonazepam 2 mg 2-3 times daily as needed, Depakote 125 mg 4 tablets (500 mg) BID, Mirtazapine 45 mg at bedtime, Geodon 60 mg BID, and Melatonin 5 mg at bedtime prn. Today 02/16/2023 provider notified patient that I would be retiring within the next year or so, suggested she discuss with her therapist a referral to agency psychiatric prescriber. F/U with therapist as usual and with me in 2 months. She agrees with the plan. Assessment & Plan (11/24/2022 9:21 AM EDT): Mood swings durably controlled, but depression and anxiety symptoms are persistent r/t chronic pain and limited ability to do much activity. Also worries about recurrence of cancer. PMH: Multiple cancer types, pending repeat genetic testing F/U with therapist. F/U with PCP. Continue medications as usual. F/U with me in 2-3 months. She agrees with the plan. Assessment & Plan (08/25/2022 11:16 AM EDT): Mood swings durably controlled, but depression and anxiety symptoms are persistent r/t chronic pain and limited ability to do much activity. Also worries about recurrence of cancer. F/U with therapist. F/U with PCP. Continue medications as usual. F/U with me in 2-3 months. She agrees with the plan. Assessment & Plan (05/22/2022 10:05 AM EST): Mood swings durably controlled, but depression and anxiety symptoms are persistent r/t chronic pain and limited ability to do much activity. F/U with therapist. F/U with PCP. Continue medications as usual. Reviewed that if she were prescribed opioid pain medications she would not also be able to continue Clonazepam. F/U with me in 2 months. She agrees with the plan. Headache 11/14/2011 Resolved Problems Problem Noted Date Diagnosed Date Resolved Date Polymyalgia rheumatica 08/07/202312/22 Overview (09/30/2023): Erythrocyte Sedimentation Rate Date Value Ref Range Status 08/05/2023 65 (H) 0 - 20 MM/HR Final Comment: Patients with polycythemia and many hemoglobin abnormalitiesmay have depressed sed rates whereas patients with anemiamay have elevated sed rates. C Reactive Protein Date Value Ref Range Status 08/05/2023 0.61 (H) < or = 0.50 mg/dL Final -Prednisone 15mg daily started 08/07/23, call in 1 week, patient had no change in symptoms after 3 weeks of treatment. Prednisone weaned off Assessment & Plan (08/07/2023 9:19 AM EDT): Erythrocyte Sedimentation Rate Date Value Ref Range Status 08/05/2023 65 (H) 0 - 20 MM/HR Final Comment: Patients with polycythemia and many hemoglobin abnormalitiesmay have depressed sed rates whereas patients with anemiamay have elevated sed rates. C Reactive Protein Date Value Ref Range Status 08/05/2023 0.61 (H) < or = 0.50 mg/dL Final -Prednisone 15mg daily started 08/07/23, call in 1 week Malodorous urine 09/25/2022 01/21/2023 Overview (09/25/2022): Normal UA. -Encouraged to drink water. Assessment & Plan (01/21/2023 9:07 AM EDT): Normal UA. -Encouraged to drink water. Assessment & Plan (09/25/2022 11:38 AM EDT): Normal UA. -Encouraged to drink water. Fibromyositis 11/14/2011 05/30/2022 Encounters Date Type Department Care Team Description 06/23/2024 9:40 AM EST Office Visit [facility] [address] [address] Jonathan Rubalcava MD Moderate persistent asthma with exacerbation (Primary Dx); Essential hypertension; Transaminitis 06/23/2024 [facility] [address] [address] Valentine Rodriguez MD Essential hypertension 06/23/2024 Telephone [facility] [address] [place] [phone] Valentine Rodriguez MD Call Back Request 06/23/2024 Telephone [facility] [address] [address] Jonathan Rubalcava MD 06/22/[address] [address] Valentine Rodriguez MD Durable Medical Equipment 06/22/[address] [phone] Valentine Rodriguez MD Nurse Triage 06/17/2024 Orders Only GENERIC EXTERNAL DATA DEPARTMENT Provider, Generic External Data 06/12/2024 Refill [facility] [address] [place] [phone] Valentine Rodriguez MD Fibromyalgia 05/09/2024 Refill [facility] [address] [place] [phone] Valentine Rodriguez MD Bipolar disorder in partial remission, most recent episode unspecified type ([facility]) 05/08/2024 Refill [facility] [address] [place] [phone] Valentine Rodriguez MD Essential hypertension 05/04/2024 Telephone [facility] [address] [place] [phone] Valentine Rodriguez MD Nurse Triage 04/10/2024 Refill [facility] [address] [place] [phone] Valentine Rodriguez MD Seasonal allergies; Dyslipidemia 04/07/2024 Orders Only [facility] External Provider, [facility] History of tobacco use (Primary Dx) from Last 3 Months Immunizations Name Administration Dates Next Due Influenza injectable quadriv alent preservative free 05/13/2021,03/27/2020,06/09/2018,2014 Pfizer Covid-19 Vaccine 12+ 08/05/2023 Pneumococcal Conjugate PCV 20 08/05/2023 Tdap 01/21/2023,11/27/2011 Zoster, Recombinant 07/17/2021,05/16/2021 Family History Medical History Relation Name Comments Glaucoma Mother's Sister Relation Name Status Comments Mother's Sister Social History Tobacco Use Types Packs/Day Years [...] is your housing situation today? I have maggiepat santos 03/19/[address] you [...] Orientation Straight 03/24/2022 10 :16 AM EDT Last Filed Vital Signs Vital Sign Reading [...] Mass Index 28.99 06/23/2024 9:30 AM EST Plan of Treatment Upcoming Encounters Date Type Department Care Team (Late st Contact Info) Description 08/22/2024 9:00 AM EDT Office Visit [facility] [address] [place] [address] Ryan, Deborah, OD [address] [place] [address] Health Maintenance Due Date Last Done Comments CT Colonography 1960 FIT DNA/Cologuard 1960 FIT 1960 FOBT 1960 Sigmoidoscopy 1960 Derm Melanoma Skin Check 04/28/1961 Alcohol/Substance Use Screening 1972 RSV Patients and Patients Aged 60 years or older (1 - Risk 60-74 years 1-dose series) 2020 SDOH Screening 09/26/2023 09/25/2022 Depression Monitoring (PHQ-9) 12/21/2023 06/22/2023, 06/22/2023 COVID-19 Vaccine ( season) 2024 08/05/2023, 06/05/2021, 09/18/2020, Additional history exists Influenza Vaccine (#1) 2024 , 03/27/2020, 06/09/2018, Additional history exists Depression Screening 06/22/2024 06/22/2023, 06/22/19 Tobacco Screening 06/23/2025 06/23/2024 Cervical Cancer Screening 12/10/2025 HPV/Cotest 12/10/2025 12/10/2020 Pap Smear 12/10/2025 12/10/2020, 12/07/2019 Colonoscopy 12/17/2026 12/18/2023, 11/23, 03/13/2012, Additional history exists Colorectal Cancer Screening 12/17/2026 Lipid Panel 06/05/2027 06/05/2022, 10/24, 05/20/2021, Additional history exists DTaP/Tdap/Td Vaccines (3 - Td or Tdap) 01/21/2033 01/21/2023, 11/27/2011 Zoster Vaccines Completed 07/17/2021, 05/16/2021 HIV Screening Completed 06/05/2022 Hepatitis C Screening Completed 06/05/2022 Pneumococcal Vaccine: 50+ Years Completed 08/05/2023 HIB Vaccines Aged Out No longer eligi ble based on patient's age to complete this topic HPV Vaccines Aged Out No longer eligi ble based on patient's age to complete this topic Hepatitis A Vaccines Aged Out No long er eligible based on patient's age to complete this topic Hepatitis B Vaccines Aged Out No long er eligible based on patient's age to complete this topic IPV Vaccines Aged Out No longer eligi ble based on patient's age to complete this topic Meningococcal Vaccine Aged Out No anisha kristin eligible based on patient's age to complete this topic RSV under 20 months Aged Out No longe r eligible based on patient's age to complete this topic Rotavirus Vaccines Aged Out No longer eligible based on patient's age to complete this topic Goals Goal Patient Goal Type Associated Problems Recent Progress Patient-Stated? Author Blood Pressure < 140/90 Blood Pressure 170/92( 025 10:48 AM EST) No Slime Hernandez PharmD Procedures Procedure Name Priority Date/Time Associated Diagnosis Comments XR CHEST 1 VIEW Routine 06/17/2024 8:19 AM EST URINALYSIS, COMPLETE, WITH REFLEX TO CULTURE Routine 06/17/2024 7:59 AM EST SARS COV2/INFLUENZA A/B AND RSV RNA QL NAAT Routine 06/17/2024 7:59 AM EST LIPASE Routine 06/17/2024 7:46 AM EST BASIC METABOLIC PANEL Routine 06/17/2024 7:46 AM EST HEPATIC FUNCTION PANEL Routine 06/17/2024 7:46 AM EST CBC WITH AUTO DIFFERENTIAL Routine 06/17/2024 7:46 AM EST LDCT LUNG SCREENING Routine 04/07/2024 9 :16 AM EST HM COLONOSCOPY Routine 12/18/2023 HEPATITIS C VIRAL RNA, QUANTITATIVE, REAL-TIME PCR Routine 06/05/2022 9:19 AM EST Routine screening for STI (sexually transmitted infection) HIV 1/2 ANTIGEN/ANTIBODY, FOURTH GENERATION W/RFL Routine 06/05/2022 9:19 AM EST Routine screening for STI (sexually transmitted infection) LIPID PANEL, STANDARD Routine 06/05/2022 9:19 AM EST Dyslipidemia HPV HIGH RISK PCR Routine 12/10/2020 PAP SMEAR Routine 12/10/2020 from Last 3 Months or Most Recently Relevant to Health Maintenance Results * XR Chest 1 View (06/17/2024 8:19 AM EST) Anatomical Region Laterality Modality Chest Radiographic Gloria ging 06/17/2024 8:19 AM EST Narrative 06/17/2024 8:49 AM EST ? [facility] ?[address] ?[place] [address] ?XRay Report ? Signed ? Patient: Blackburn,Sanchez M ?MR#: [id number] ? : 1960 ?Acct:[id number] ? Age/Sex: 63 / F ?ADM Date: /24/25 ? Loc: HO.ED ? Attending Dr: ? Ordering Physician: Jessica Nur DO ?? Date of Service: 06/17/24 ?? Procedure(s): XR chest 1V ?? Accession Number(s): [id number] ? cc: Valentine Rodriguez MD; Jessica Nur [...] signed by Ketan Rubi MD in OV> ?01/24/25 0846 ? DD/ 0819 ? TD/TT: 06/17/24 0840 ? Associate Designer: ? Procedure Note Tisha, Image - 06/17/2024 [place] [address] XRay Report Signed Patient: Sanchez Blackburn MMR#: [id number] : 1960cct:[id number] Age/Sex: 63 / FADM Date: 06/17/24 Loc: HO.ED Attending Dr: Ordering Physician: Jessica Nur DO Date of Service: 06/17/24 Procedure(s): XR chest 1V Accession Number(s): [id number] cc: Valentine Rodriguez MD; Jessica Nur DO [...] Rubi MD in OV> 06/17/24 0846 DD/ 8 TD/TT: 06/17/24 0840 Associate Designer: [facility] External Provider IMG XR PROCEDURES Final Result * (ABNORMAL) Urinalysis, Complete, with Reflex to Culture (06/17/2024 7:59 AM EST) Color Urine Yellow [facility] Appearance Urine Clear [facility] PH 5.5 5.0 - 9.0 [facility] Glucose Urine UA Negative Negative mg/dL [facility] Urine Blood Moderate (2+)(A) Negative [facility] Specific Home - Urine 1.025 1.005 - 1.025 [facility] Urine Protein 300 (3+)(A) Neg-Trace mg/dL [facility] Urine Ketones 15 Negative mg/dL [facility] Nitrite Urine Negative Negative [facility] Leukocyte Esterase Urine Negative Negative [facility] RBC Urine 6-10(A) 0 - 2 /HPF [facility] Urine WBC 0-5 0 - 5 /HPF [facility] Urine Squamous Epithelial Cell 6-10 0 - 2 /HPF [facility] Urine Bacteria Trace None Seen [facility] Hyaline Casts, Urine 6-10 0 - 2 /LPF [facility] GRANULAR CASTS (#/HPF) IN URINE Present [facility] 06/17/2024 7:59 AM EST 06/17/2024 8:03 AM EST Narrative [facility] - 06/17/2024 8:19 AM EST Urine, Clean Catch Generic External Data Provider LAB URINE ORDERAB LES Final Result Performing Organization Address [facility] Co de Phone Number [facility] [address] [place] [phone] * (ABNORMAL) SARS-CoV-2 RNA, Influenza A/B, and RSV RNA, Ql NAAT (06/17/2024 7:59 AM EST) Pathologist [facility] Influenza A PCR POSITIVE(A) Negative [facility] Influenza B PCR NEGATIVE Negative [facility] Resp Syncy Virus RNA Qual PCR NEGATIVE Negative [facility] SARS COV2 PCR NEGATIVE Negative [facility] Comment:All test results mus t [...] use by authorized laboratories.Testing performed on the Touch-Writer GeneXpert utilizingreal-time RT-PCR.All SARS CoV2 and positive influenza A/B results arereported to [facility]. 06/17/2024 7:59 AM EST 06/17/2024 8:03 AM EST Generic External Data Provider LAB MICROBIOLOGY - GENERAL ORDERABLES Final Result Performing Organization Address [facility]/ZIP Co de Phone Number [facility] [address] [place] [phone] * (ABNORMAL) CBC auto differential (06/17/2024 7:46 AM EST) White Blood Count 7.4 4.8 - 10.8 X10*3/uL [facility] Red Blood Count 4.63 4.20 - 5.50 X10*6/uL [facility] Hemoglobin 13.9 12.0 - 16.0 g/dl [facility] Hematocrit 42.3 37.0 - 47.0 % [facility] Mean Corpuscular Volume 91.4 80.0 - 98.0 fL [facility] Mean Corpuscular Hemoglobin 30.0 27.0 - 33.0 pg [facility] Mean Corpuscular HGB Conc 32.9 31.0 - 35.0 g/dl [facility] Red Cell Distribution Width 12.5 11.0 - 16.0 % [facility] Platelet Count 292 160 - 400 X10*3/uL [facility] Mean Platelet Volume 9.9 9.4 - 12.3 fL [facility] Neutrophils Percent Auto 85.1(H) 45 - 73 % [facility] Imm Gran Pct Auto 0.5(H) 0.0 - 0.4 % [facility] Lymphocytes Percent Auto 6.6(L) 20 - 40 % [facility] Monocytes Percent Auto 7.4 2 - 11 % [facility] Eosinophils Percent Auto 0.0 0 - 4 % [facility] Basophils Percent Auto 0.4 0 - 2 % [facility] NRBC Pct Auto 0.0 0.0 - 0.2 /100WBC [facility] Neutrophils Absolute Auto 6.3 2.0 - 8.3 x10*3/uL [facility] Imm Gran Abs Auto 0.04(H) 0.00 - 0.03 X10*3/uL [facility] Lymphocytes Absolute Auto 0.5(L) 1.2 - 4.9 X10*3/uL [facility] Monocytes Absolute Auto 0.6 0.1 - 1.2 X10*3/uL [facility] Eosinophils Absolute Auto 0.0 0.0 - 0.4 X10*3/uL [facility] Basophils Absolute Auto 0.0 0.0 - 0.2 X10*3/uL [facility] NRBC Abs Auto 0.000 0.0 - 0.012 X10*3/uL [facility] 06/17/2024 7:46 AM EST 06/17/2024 7:51 AM EST us Generic External Data Provider LAB BLOOD ORDERAB LES Final Result Performing Organization Address [facility]/ZIP Co de Phone Number [facility] [address] [place] [phone] * Lipase (06/17/2024 7:46 AM EST) Lipase 11 8 - 78 U/L [facility] 06/17/2024 7:46 AM EST 06/17/2024 7:51 AM EST us Generic External Data Provider LAB BLOOD ORDERAB LES Final Result Performing Organization Address [facility] Co de Phone Number [facility] [address] [place] [phone] * (ABNORMAL) Hepatic Function Panel (06/17/2024 7:46 AM EST) Bilirubin, Total 0.6 0.0 - 1.0 mg/dL [facility] Bilirubin, Direct 0.2 0.0 - 0.5 mg/dL [facility] Aspartate Amino Transferase 97(H) 5 - 31 U/L [facility] Alanine Aminotransferase 86(H) 0 - 31 U/L [facility] Total Protein 8.5(H) 6.5 - 8.0 g/dL [facility] Albumin Level 4.4 3.5 - 5.0 g/dL [facility] Alkaline Phosphatase 126(H) 39 - 117 U/L [facility] 06/17/2024 7:46 AM EST 06/17/2024 7:51 AM EST us Generic External Data Provider LAB BLOOD ORDERAB LES Final Result Performing Organization Address [facility] Co de Phone Number [facility] [address] [place] [phone] * (ABNORMAL) Basic Metabolic Panel (06/17/2024 7:46 AM EST) Sodium 136 135 - 145 mmol/L [facility] Potassium 3.9 3.3 - 5.1 mmol/L [facility] Chloride 104 96 - 108 mmol/L [facility] Carbon Dioxide 20(L) 22 - 29 mmol/L [facility] Anion Gap 16 12 - 20 [facility] Urea Nitrogen (BUN) 23(H) 9 - 16 mg/dL [facility] Creatinine, Serum 0.92 0.5 - 1.4 mg/dL [facility] Creatinine Clr Calc Pharmacy 58.0 [facility] Comment:Provided height and weight: 157.48 cm,71.7 kg.eGFR (calculated from the MDRD study equation) and eCrCl(calculated from the Cockcroft-Gault equation) are based ondifferent parameters and may not yield comparable results.If eCrCl result is absurd, please check patient'sheight/weight. Estimated Glomerular Filt Rate >60 [facility] Comment:Chronic Kidney Disea se: Estimated GFR < 60 mL/min/1.90b3Xwnycj Kidney Disease: Estimated GFR < 15 mL/min/1.73m2 Glucose 133(H) 60 - 115 mg/dL [facility] Calcium 9.7 8.4 - 10.2 mg/dL [facility] 06/17/2024 7:46 AM EST 06/17/2024 7:51 AM EST us Generic External Data Provider LAB BLOOD ORDERAB LES Final Result [facility] [address] [place] [address] [phone] * CT Lung Screening Low dose (04/07/2024 9:16 AM EST) Anatomical Region Laterality Modality Lung Computed Tomogra phy 04/07/2024 9:16 AM EST Narrative 06/09/2024 2:19 PM EST ? [facility] ?[address] ?[place] [address] ? CT Scan Report ? Signed ? Patient: Blackburn,Sanchez M ?MR#: [id number] ? : 1960 ?Acct:[id number] ? Age/Sex: 63 / F ?ADM Date: 04/07/24 ? Loc: HO.CT ? Attending Dr: Sharlene Iglesias PA-C ? Ordering Physician: Sharlene Iglesias PA-C ?? Date of Service: 04/07/24 ?? Procedure(s): CT lung screening ?? Accession Number(s): [id number] ? cc: Valentine Rodriguez MD; Sharlene Iglesias PA-C ? Report Number: ?? [id number]: Total DLP = ?? 52.00 mGy-cm ?? 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 ? FINDINGS: ? PULMONARY NODULES: ?? -There [...] for CT CHEST LOW DOSE CANCER SCREENING ([id number]) ?? can be placed. ? Electronically signed by: ??Anjum Valencia MD ??06/09/2024 02:17 PM EST RP ? Dictated By: ?Anjum Valencia MD ? Signed By: ?<Electronically signed by Anjum Valencia MD in OV> ?06/09/24 1417 ? DD/ 0916 ? TD/TT: 04/07/24 09 ? Associate Designer: ? 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 FINDINGS: PULMONARY NODULES: -There are stable scattered [...] for CT CHEST LOW DOSE CANCER SCREENING ([id number]) can be placed. Electronically signed by: Anjum Valencia MD 06/09/2024 02:17 PM EST Dictated By: Anjum Valencia MD Signed By: <Electronically signed by Anjum Valencia MD in OV> 06/09/24 1417 DD/ 0916 TD/TT: 04/07/24 09 Associate Designer: [facility] External Provider IMG CT PROCEDURES Final Result * (ABNORMAL) Colonoscopy (12/18/2023) Pathologist [facility] Colonoscopy Abnormal( A) Normal Comment:with jami Gaitan ubular adenoma 12/18/2023 Historical Provider HEALTH MAINTENANCE Final Result * Hepatitis C Viral RNA, Quantitative, Real-Time PC (06/05/2022 9:19 AM EST) Pathologist [facility] HCV RNA, QN Real Time PCR <15 NOT DETECTED NOT DETECTED IU/mL [facility] [employer] HCV RNA QN Real Time PCR <1.18 NOT DETECTED NOT DETECTED Log IU/mL [facility] [employer] Comment: This test was performed using Real-Time Polymerase Chain Reaction. Reportable Range: 15 IU/mL to 100,000,000 IU/mL (1.18 Log IU/mL to 8.00 Log IU/mL). ?? The analytical performance characteristics of this assay have been determined by [facility]. The modifications have not been cleared or approved by the FDA. This assay has been validated pursuant to the CLIA regulations and is used for clinical purposes. ?? For more information on this test, go to: http://Facio.[employer] Education/faq/ZTT49k1 (This link is being provided for informational/ educational purposes only.) 06/05/2022 9:19 AM EST 06/05/2022 9:20 AM EST Narrative [facility] - 06/10/2022 12:06 PM EST FASTING:YES FASTING: YES Valentine Rodriguez MD LAB BLOOD ORDERABLES Final Result [facility] [address] [facility] [place] [address] [facility] [employer] [address] [facility], ([address]) [place] [address] * HIV-1/2 Antigen and Antibodies, Fourth Generation, with Reflexes (06/05/2022 9:19 AM EST) Pathologist [facility] HIV Antigen/Antibody, 4th Generation NON-REAC TIVE NON-REAC TIVE [facility] [employer] Comment: HIV-1 antigen and HIV-1/HIV-2 antibodies were not detected. There is no laboratory evidence of HIV infection. PLEASE NOTE: This information has been disclosed to you from records whose confidentiality may be protected by state law. ??If your state requires such protection, then the state law prohibits you from making any further disclosure of the information without the specific written consent of the person to whom it pertains, or as otherwise permitted by law. A general authorization for the release of medical or other information is NOT sufficient for this purpose. ?? For additional information please refer to http://Facio.[employer] Education/faq/FJR943 (This link is being provided for informational/ educational purposes only.) The performance of this assay has not been clinically validated in patients less than 2 years old. Blood Venous blood specimen / Unknown 06/05/2022 9:19 AM EST 06/05/2022 9:20 AM EST Narrative [facility] - 06/10/2022 12:06 PM EST FASTING:YES FASTING: YES Valentine Rodriguez MD LAB BLOOD ORDERABLES Final Result [facility] [address] [facility] [place] [address] [facility] [employer] [address], ([address]) [place] [address] * (ABNORMAL) Lipid Panel, Standard (06/05/2022 9:19 AM EST) Cholesterol, Total 182 <200 mg/dL [facility] HDL Cholesterol 58 > OR = 50 mg/dL [facility] Triglycerides 75 <150 mg/dL [facility] LDL Cholesterol 108(H) mg/dL (calc) [facility] Comment: Reference range: <100 Desirable range <100 mg/dL for primary prevention; ?? <70 mg/dL for patients with CHD or diabetic patients with > or = 2 CHD risk factors. LDL-C is now calculated using the Delta-Kelley calculation, which is a validated novel method providing better accuracy than the Friedewald equation in the estimation of LDL-C. Delta SS et al. CHAR. 2013;310(19): 7947-5350 (http://education.Electronifie/faq/HXP397) Chol/HDLC Ratio 3.1 <5.0 (calc) [facility] Non-HDL Cholesterol 124 <130 mg/dL (calc) [facility] Comment: For patients with diabetes plus 1 major ASCVD risk factor, treating to a non-HDL-C goal of <100 mg/dL (LDL-C of <70 mg/dL) is considered a therapeutic option. Blood Venous blood specimen / Unknown 06/05/2022 9:19 AM EST 06/05/2022 9:20 AM EST Narrative [facility] - 06/10/2022 12:06 PM EST FASTING:YES FASTING: YES Valentine Rodriguez MD LAB BLOOD ORDERABLES Final Result [facility] [address] [facility] [place] [address] [facility] [address] [facility], ([address]) [place] [address] * HPV High Risk PCR (12/10/2020) Swab Cervical swab / Unknown 12/10/2020 us Historical Provider LAB MICROBIOLOGY - GENERA L ORDERABLES Final Result * Pap Smear (12/10/2020) Swab 12/10/2020 us Historical Provider LAB CYTOLOGY ORDERABLES F inal Result from Last 3 Months or Most Recently Relevant to Health Maintenance [facility] [employer] Care Teams Treatment Manager Relationship Specialty Start Date End Date Valentine Rodriguez MD [address] [place] [address] PCP - General Family Medicine 05/25/18 Timmy Contreras FNP [address] [place] [address] Nurse Practitioner Family Medicine 04/13/23
[2024-07-05 11:38] LABS: Alanine Aminotransferase 16 U/L (0-31); Albumin Level 3.9 g/dL (3.5-5.0); Alkaline Phosphatase 104 U/L (39-117); Aspartate Amino Transferase 28 U/L (5-31); Bilirubin Direct 0.1 mg/dL (0.0-0.5); Bilirubin Total 0.4 mg/dL (0.0-1.0); Total Protein 7.6 g/dL (6.5-8.0)
== END 2024-07-05 09:01 | disposition home or self-care (01) ==
LOC: HO.HHCL 09:00
PROVIDERS: Visit Provider Family Medicine
DX: R74.01 Elevation of levels of liver transaminase levels (principal)
CPT/HCPCS: 36415; 80076

== ENCOUNTER 2024-12-07 18:18 | Outpatient (REF) | payer MEDICAID, SELFPAY ==
[2024-12-07 18:51] LABS: Appearance Urine Turbid; Glucose Urine UA Negative (Negative); PH 5.5 (5.0-9.0); Specific Gravity - Urine >= 1.030 (1.005-1.025); UMIC TRIGGER UACC YES
[2024-12-07 20:46] LABS: UACC Culture Trigger YES
== END 2024-12-07 18:19 | disposition home or self-care (01) ==
LOC: HO.LNP 18:18
PROVIDERS: Visit Provider Family Medicine
DX: I10 Essential (primary) hypertension (principal); R80.9 Proteinuria, unspecified; R73.9 Hyperglycemia, unspecified; E78.5 Hyperlipidemia, unspecified
CPT/HCPCS: 81001; 87086; 87088; 87186

== ENCOUNTER 2025-01-09 09:52 | Emergency (ER) | payer MEDICAID, SELFPAY ==
--- NOTE | ~2025-01-09 | XR_ITS ---
EXAMINATION: XR KNEE, RIGHT CLINICAL INFORMATION: swelling, red, pain COMPARISON: March 02, 2021 TECHNIQUE: AP oblique and lateral views of the right knee. FINDINGS: No acute cortical disruption or malalignment. Suprapatellar bursa joint effusion, moderate to large volume. Joint space narrowing involving mostly the medial compartment. No lytic or blastic lesions. 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 Suprapatellar bursa joint effusion, moderate to large volume. Electronically signed by: Elias More MD 01/09/2025 11:01 AM EDT
[2025-01-09 10:35] VITALS: BP 195/74; PULSE 61; RESP 16; TEMP 36.5; O2SAT 98
--- NOTE | 2025-01-09 10:37 | ED.LOWEXIN ---
HPI - Extremity Injury (Lower) General Chief Complaint: Extremity Injury, Lower Stated Complaint: pt states pcp sent her to er to get her leg check Time Seen by Provider: 01/09/25 20:12 Source: patient Mode of arrival: ambulatory Limitations: no limitations History of Present Illness ED Provider: Dr. Leslie Banks HPI Narrative: Patient comes to the emergency room complaining of chronic knee pain. Patient states that for several years she has been having intermittent right knee swelling, pain, redness. Patient states that she went to urgent care today she was referred to the emergency room. Patient states that she is able to walk, has no trouble bending the knee, states that at this time her knee is not as swollen as sometimes it is. Patient states that she is here because urgent care sent her here. Patient denies IV drug use, states that she has been told that she needs a knee replacement if her knee keeps getting worse. Related Data Home Medications ?Medication ?Instructions ?Recorded ?Confirmed acetaminophen 325 mg tablet 2 tab PO Q6H PRN severe pain 12/13/20 01/07/24 albuterol sulfate 90 mcg/actuation 2 puff PO Q4H PRN dyspnea 12/13/20 01/07/24 aerosol inhaler (ProAir HFA) clonazepam 2 mg tablet 1 tab PO BID anxiety 12/13/20 01/07/24 cyanocobalamin (vitamin B-12) 100 1 tab PO DAILY 12/13/20 01/07/24 mcg tablet loratadine 10 mg tablet 1 tab PO DAILY 12/13/20 01/07/24 omeprazole 20 mg capsule,delayed 1 cap PO DAILY 12/13/20 01/07/24 release ziprasidone HCl 60 mg capsule 1 cap PO BID 12/13/20 01/07/24 atenolol 25 mg tablet 25 mg PO DAILY 11/03/22 01/07/24 cholecalciferol (vitamin D3) 25 25 mcg PO DAILY 11/03/22 01/07/24 mcg (1,000 unit) capsule (Vitamin D3) cyclobenzaprine 10 mg tablet 10 mg PO BEDTIME PRN muscle pain 11/03/22 01/07/24 fluticasone propionate 44 2 puff inhalation BID 11/03/22 01/07/24 mcg/actuation HFA aerosol inhaler (Flovent HFA) lisinopril 10 mg tablet 10 mg PO DAILY 11/03/22 01/07/24 mirtazapine 45 mg tablet 45 mg PO BEDTIME 11/03/22 01/07/24 riboflavin (vitamin B2) 100 mg 100 mg PO DAILY 11/03/22 01/07/24 tablet (Vitamin B-2) Previous Rx's ?Medication ?Instructions ?Recorded sodium,potassium,mag sulfates 17.5 See Rx Instructions PO .COMPLEX 11/03/22 gram-3.13 gram-1.6 gram oral soln #354 mL (Suprep Bowel Prep Kit) sodium,potassium,mag sulfates 17.5 See Rx Instructions PO .COMPLEX 09/23/23 gram-3.13 gram-1.6 gram oral soln #354 mL (Suprep Bowel Prep Kit) ondansetron 4 mg disintegrating 4 mg PO Q8H PRN nausea and 06/17/24 tablet vomiting #20 tabs oseltamivir 75 mg capsule (Tamiflu) 75 mg PO BID 5 days #10 caps 06/17/24 naproxen 375 mg tablet 375 mg PO BID PRN pain #14 tabs 01/09/25 Allergies Allergy/AdvReac Type Severity Reaction Status Date / Time No Known Allergies (No Known Allergy Verified 01/09/25 10:40 Allergies*) Review of Systems Review of Systems: Constitutional : No Weight loss, No Fever, No Chills, No Night Sweats, No Fatigue, No Malaise ENT/Mouth : No Hearing loss, No Ear Pain, No Nasal Congestion, No Sinus Pain, No Hoarseness, No sore throat, No Rhinorrhea, No Swallowing Difficulty Eyes: No Eye Pain, No Swelling, No Redness, No Foreign Body, No Discharge, No Vision Changes Cardiovascular : No Chest Pain, No SOB, No Dyspnea on Exertion, No Orthopnea, No Edema, No Palpitations Respiratory : No Cough, No Sputum, No Wheezing, No Smoke Exposure, No Dyspnea Gastrointestinal : No Nausea, No Vomiting, No Diarrhea, No Constipation, No abdominal Pain, No Hematochezia, No Melena Genitourinary : no irregular bleeding, No Dysuria, No Urinary Frequency, No Hematuria, No Urinary Incontinence, No Urgency, No Flank Pain, No Urinary Flow Changes, No Hesitancy Musculoskeletal : Complaining of intermittent right knee swelling, pain, erythema. Better today than some other days. No Myalgias, No Joint Swelling Skin : No Skin Lesions, No rash Neuro : No Weakness, No Numbness, No Paresthesias, No Loss of Consciousness, No Dizziness, No Headache Psych : No Anxiety/Panic, No Depression, No SI/HI/AH/VH, No Social Issues, Heme/Lymph: No Bruising, No Bleeding,No Lymphadenopathy Endocrine : No Polyuria, No Polydipsia, No Temperature Intolerance PMFSH Past Medical History Medical History Vaginal intraepithelial neoplasia III (VAIN III) History of breast cancer BRCA positive Bipolar 1 disorder Fibromyalgia HTN (hypertension) Asthma Personal history of nicotine dependence Osteoporosis Tubular adenoma of colon Chronic headaches Anxiety Arthritis Surgical History History of modified radical mastectomy History of mastectomy History of basal cell carcinoma (BCC) excision History of cholecystectomy History of removal of both ovaries History of History of colposcopy Family History Family History Father Cancer Paternal Grandmother Cancer Sister Cancer Social History Social History Household Members: Spouse Housing: Apartment Are you a primary lead care manager to a significant other at home: No Do you presently have visiting nurse or other home services: No Alcohol intake: never Patient Tobacco Use Status: Former Tobacco user Substance Use Type: Marijuana Advance Directives: No Advance Directives Information Provided: No Do you have a plan to hurt others: No Plan service: No Current occupational status: disabled Physical Exam Exam: Exam: Appearance: Alert. Oriented X3. No acute distress. Eyes: Pupils equal, round and reactive to light. ENT: Pharynx normal. Neck: Normal inspection. Neck supple. No lymph nodes noted. No crepitus CVS: Normal heart rate and rhythm. Pulses normal. Normal S1 and S2 Respiratory: No respiratory distress. Breath sounds normal. No Wheezing. No rales Abdomen: Soft and nontender. No rigidity. No distention. Skin: Skin warm and dry. Normal skin color. Normal skin turgor. Extremities: No lower extremity edema. Patient's left knee is within normal limits. Patient's right knee is slightly swollen, no ecchymosis, no erythema, patient is able to flex and extend the knee with normal range of motion in his. Patient states that she is feels pressure on the inside but no significant pain. Neuro: Oriented X 3. No motor deficit. No sensory deficit. Moving all extremities. No slurred speech. CN 2 through 12 grossly intact Psych: calm, cooperative, normal affect Vital Signs: Vital Signs: Last Vital Signs Temp 97.6 F 01/09/25 18:55 Pulse 71 01/09/25 18:55 Resp 20 01/09/25 18:55 BP 204/87 H 01/09/25 18:55 Pulse Ox 97 01/09/25 18:55 O2 Del Method Room Air 01/09/25 18:55 BMI result Body Mass Index 30.0 Course Course Course Narrative: This is a Rapid Medical Examination (RME) performed by Frances Gallo PA-C in triage. Full HPI, ROS, assessment and treatment plan per primary provider in the Main ED. Hx: 64 yo F here for eval of atraumatic right knee pain/swelling. no fevers. no tick/insect bites. no IVDU. no falls/trauma. PE/vitals: afebrile. Noted swelling and erythema to right knee. Full ROM intact with pain on flexion. warm, tender, no crepitus. Plan: xr, labs Medications Administered Discontinued Medications Generic Name Dose Route Start Last Admin Trade Name Mikieq PRN Reason Stop Dose Admin Acetaminophen 975 mg 01/09/25 18:57 01/09/25 18:59 Acetaminophen 325 Mg Tablet PO 01/09/25 18:58 975 mg ONCE ONE Administration Medical Decision Making Medical Decision Making [facility] Narrative: No significant abnormality in patient's hematology and chemistry X-rays of the knee show osteoarthritis Based on physical exam, I do not see any signs of septic joint. Patient has never had gout. Patient's physical exam and x-ray findings are consistent with osteoarthritis. Patient was given a dose of naproxen here in the emergency room. Patient will follow-up with the primary care physician. Differential Diagnosis Differential Diagnoses: The differential diagnosis associated with the presentation includes (As above) Lab Data [facility] Lab Attestation statement: I reviewed the patient's lab results. 01/09/25 10:47 01/09/25 10:47 Labs: Lab Results 01/09/25 Range/Units 10:47 WBC 8.2 (4.8-10.8) X10*3/uL RBC 4.30 (4.20-5.50) X10*6/uL Hgb 13.0 (12.0-16.0) g/dl Hct 39.8 (37.0-47.0) % MCV 92.6 (80.0-98.0) fL MCH 30.2 (27.0-33.0) pg MCHC 32.7 (31.0-35.0) g/dl RDW 12.8 (11.0-16.0) % Plt Count 306 (160-400) X10*3/uL MPV 9.7 (9.4-12.3) fL Immature Gran % (Auto) 0.4 (0.0-0.4) % Neut % (Auto) 61.5 (45-73) % Lymph % (Auto) 27.0 (20-40) % Dawson % (Auto) 6.6 (2-11) % Eos % (Auto) 3.8 (0-4) % Baso % (Auto) 0.7 (0-2) % Lymph # (Auto) 2.2 (1.2-4.9) X10*3/uL Dawson # (Auto) 0.5 (0.1-1.2) X10*3/uL Eos # (Auto) 0.3 (0.0-0.4) X10*3/uL Baso # (Auto) 0.1 (0.0-0.2) X10*3/uL Abs Immat Gran (auto) 0.03 (0.00-0.03) X10*3/uL Absolute Neuts (auto) 5.1 (2.0-8.3) x10*3/uL Absolute Nucleated RBC 0.000 (0.0-0.012) X10*3/uL Nucleated RBC % (auto) 0.0 (0.0-0.2) /100WBC Sodium 140 (135-145) mmol/L Potassium 4.4 (3.3-5.1) mmol/L Chloride 108 (96-108) mmol/L Carbon Dioxide 25 (22-29) mmol/L Anion Gap 11 L (12-20) BUN 16 (9-16) mg/dL Creatinine 0.78 (0.5-1.4) mg/dL Estim Creat Clear Calc 68.8 Estimated GFR > 60 Random Glucose 99 (60-115) mg/dL Uric Acid 5.5 (2.4-5.7) mg/dL Calcium 9.3 (8.4-10.2) mg/dL Total Bilirubin 0.4 (0.0-1.0) mg/dL AST 26 (5-31) U/L ALT 20 (0-31) U/L Alkaline Phosphatase 123 H (39-117) U/L C-Reactive Protein 1.00 H (< or = 0.50) mg/dL Total Protein 7.6 (6.5-8.0) g/dL Albumin 4.5 (3.5-5.0) g/dL Independent Interpretation I performed an independent interpretation of an: Plain X-Ray Radiology Impression Discussion of test interpretation with radiology: I have reviewed the radiologist's reading. Radiologist Impression: Bicompartmental osteoarthrosis/osteoarthritis involving mostly the medial compartment. Suprapatellar bursa joint effusion, moderate to large volume Discharge Plan Discharge Clinical Impression: Osteoarthritis Patient Disposition: Home, Self-Care Instructions: Osteoarthritis (ED) Additional Instructions: Please follow-up with your primary care physician tomorrow. If you have any worsening or new symptoms, please return to the emergency room or call 911 Prescriptions: New naproxen 375 mg tablet 375 mg PO BID PRN (Reason: pain) Qty: 14 0RF No Action acetaminophen 325 mg tablet 2 tab PO Q6H PRN (Reason: severe pain) cyanocobalamin (vitamin B-12) 100 mcg tablet 1 tab PO DAILY clonazepam 2 mg tablet 1 tab PO BID omeprazole 20 mg capsule,delayed release(DR/EC) 1 cap PO DAILY albuterol sulfate [ProAir HFA] 90 mcg/actuation HFA aerosol inhaler 2 puff PO Q4H PRN (Reason: dyspnea) ziprasidone HCl 60 mg capsule 1 cap PO BID loratadine 10 mg tablet 1 tab PO DAILY oseltamivir [Tamiflu] 75 mg capsule 75 mg PO BID 5 Days Qty: 10 0RF ondansetron 4 mg tablet,disintegrating 4 mg PO Q8H PRN (Reason: nausea and vomiting) Qty: 20 0RF mirtazapine 45 mg tablet 45 mg PO BEDTIME fluticasone propionate [Flovent HFA] 44 mcg/actuation HFA aerosol inhaler 2 puff inhalation BID lisinopril 10 mg tablet 10 mg PO DAILY atenolol 25 mg tablet 25 mg PO DAILY cyclobenzaprine 10 mg tablet 10 mg PO BEDTIME PRN (Reason: muscle pain) cholecalciferol (vitamin D3) [Vitamin D3] 25 mcg (1,000 unit) capsule 25 mcg PO DAILY riboflavin (vitamin B2) [Vitamin B-2] 100 mg tablet 100 mg PO DAILY sodium,potassium,mag sulfates [Suprep Bowel Prep Kit] 17.5-3.13-1.6 gram recon soln See Rx Instructions PO .COMPLEX Qty: 354 0RF Rx Instructions: DILUTE; drink full amount early evening before AND next morning at least 2 hr before procedure; follow w 960 mL water PO sodium,potassium,mag sulfates [Suprep Bowel Prep Kit] 17.5-3.13-1.6 gram recon soln See Rx Instructions PO .COMPLEX Qty: 354 0RF Rx Instructions: DILUTE; drink full amount early evening before AND next morning at least 2 hr before procedure; follow w 960 mL water PO Print Language: Egyptian
[2025-01-09 10:52] LABS: Hematocrit 39.8 % (37.0-47.0); Hemoglobin 13.0 g/dl (12.0-16.0); Imm Gran Abs Auto 0.03 X10*3/uL (0.00-0.03); Imm Gran Pct Auto 0.4 % (0.0-0.4); Lymphocytes Absolute Auto 2.2 X10*3/uL (1.2-4.9); MANUAL DIFF FLAG NO; Mean Corpuscular HGB Conc 32.7 g/dl (31.0-35.0); Mean Corpuscular Hemoglobin 30.2 pg (27.0-33.0); Mean Corpuscular Volume 92.6 fL (80.0-98.0); NRBC Abs Auto 0.000 X10*3/uL (0.0-0.012); NRBC Pct Auto 0.0 /100WBC (0.0-0.2); Platelet Count 306 X10*3/uL (160-400); Red Blood Count 4.30 X10*6/uL (4.20-5.50); White Blood Count 8.2 X10*3/uL (4.8-10.8)
[2025-01-09 11:13] LABS: Alanine Aminotransferase 20 U/L (0-31); Albumin Level 4.5 g/dL (3.5-5.0); Alkaline Phosphatase 123 U/L (39-117); Anion Gap 11 (12-20); Aspartate Amino Transferase 26 U/L (5-31); Blood Urea Nitrogen 16 mg/dL (9-16); Calcium 9.3 mg/dL (8.4-10.2); Carbon Dioxide 25 mmol/L (22-29); Chloride 108 mmol/L (96-108); Creatinine Clr Calc Pharmacy 68.8; Estimated Glomerular Filt Rate > 60; Potassium 4.4 mmol/L (3.3-5.1); Sodium 140 mmol/L (135-145); Total Protein 7.6 g/dL (6.5-8.0)
[2025-01-09 11:28] LABS: Uric Acid 5.5 mg/dL (2.4-5.7)
[2025-01-09 18:55] VITALS: BP 204/87; PULSE 71; RESP 20; TEMP 36.4; O2SAT 97
[2025-01-09 21:02] VITALS: BP 175/77; PULSE 64; RESP 18; TEMP 36.5; O2SAT 96
== END 2025-01-09 21:05 | disposition home or self-care (01) ==
PROVIDERS: Physician Assistant Medical; Emergency Provider Emergency Medicine; PCP Family Medicine
DX: M17.11 Unilateral primary osteoarthritis, right knee (principal); M25.561 Pain in right knee
CPT/HCPCS: 36415; 73564; 80053; 84550; 85025; 86140; 99283; 99284

== ENCOUNTER → 2025-01-09 10:37 | Outpatient (BNV) | payer MEDICAID, SELFPAY | PROVIDERS: PCP Family Medicine; Visit Provider Radiology Diagnostic Radiology | DX: M25.461 Effusion, right knee (principal) | CPT/HCPCS: 73564 ==

== ENCOUNTER 2025-03-31 09:12 | Outpatient (REF) | payer MEDICAID, SELFPAY ==
--- OUTSIDE RECORDS SUMMARY | 2025-03-31 10:18 | XMS_ITS | Encounter Summary ---
Author Organization [employer] Address [address] [facility] [address] [place] [address] Care Team Providers Care Guyline Operator Name Role Phone Valentine Rodriguez MD Primary Care Provider [phone] Timmy Contreras WET END SUPERVISOR Unavailable Unavailable Slime Ruiz PharmD Unavailable [phone] Reason for Visit * Reason Comments Med Refill Encounter Details Date Type Department Care Team (Late st Contact Info) Description 11/01/2023 Refill [facility] [address] [place] [address] Valentine Rodriguez MD [address] [place] [address] Fibromyalgia Social History Tobacco Use Types Packs/Day [...] Care Team (Late st Contact Info) Description 03/31/2025 10:30 AM EST Immunization [facility] [address] [place] [address] Arrived documented as of this encounter Goals Goal Patient Goal Type Associated Problems Recent Progress Patient-Stated? Author Blood Pressure < 140/90 Blood Pressure 120/72( 025 10:50 AM EDT) No Slime Hernandez PharmD documented as of this encounter Visit Diagnoses Diagnosis Fibromyalgia Unspecified myalgia and myositis documented in this encounter Additional Health Concerns Assessment Noted Time PHQ-9 Depression Total Score: 16 024 8:59 AM EST documented as of this encounter Care Teams Guyline Operator Relationship Specialty Start Date End Date Valentine Rodriguez MD [address] [place] [id number] PCP - General Family Medicine 05/25/18 Timmy Contreras FNP [address] [place] [phone] Nurse Practitioner Family Medicine 04/13/23 Slime Ruiz, DanyaD [address] [place] [id number] Pharmacist Pharmacy 12/23/24 documented as of this encounter
--- OUTSIDE RECORDS SUMMARY | 2025-03-31 10:18 | XMS_ITS | Clinical Summary ---
Author Organization [employer] Address [address] [facility] 7 [place] [address] Care Team Providers Care Construction Trades Contractor Name Role Phone Valentine Rodriguez MD Primary Care Provider [phone] Timmy Contreras COFFEE BLENDER Unavailable Unavailable Slime Ruiz PharmD Unavailable Allergies No known active allergies Medications cholecalciferol (Vitamin D High Potency) 25 MCG (1000 UT) capsuleIndicatio ns:Vitamin D deficiency Take 1 capsule (25 mcg) by mouth in the morning. 90 capsule 3 3 Active sennosides (Senokot) 8.6 MG tabletIndication s:Constipation, unspecified constipation type take 1 or 2 tablet by oral route every day as needed for constipation as needed 60 tablet 11 3 Active cyclobenzaprine (Flexeril) 10 MG tabletIndication s:Fibromyalgia TAKE 1 TABLET BY MOUTH DAILY AT BEDTIME NEEDED FOR MUSCLE PAIN DO NOT DRIVE WHILE TAKING 30 tablet 3 4 Active mirtazapine (Remeron) 45 MG tabletIndication s:Bipolar disorder in partial remission, most recent episode unspecified type (CMS/HCC) Take 1 tablet (45 mg) by mouth at bedtime. 90 tablet 1 4 Active clonazePAM (KlonoPIN) 2 MG tabletIndication s:Bipolar disorder in partial remission, most recent episode unspecified type (CMS/HCC) TAKE 1 TABLET BY MOUTH 2 TO 3 TIMES DAILY NEEDED FOR ANXIETY Do not start before August 07, 2023. 75 tablet 3 4 Active melatonin 5 MG tabletIndication s:Bipolar disorder in partial remission, most recent episode unspecified type (CMS/HCC) Take 1 tablet (5 mg) by mouth if needed at bedtime (sleep). 90 tablet 1 4 Active ziprasidone (Geodon) 60 MG capsuleIndicatio ns:Bipolar disorder in partial remission, most recent episode unspecified type (CMS/HCC) Take 1 capsule (60 mg) by mouth with breakfast and with evening meal. 180 capsule 4 Active loratadine (Claritin) 10 MG tabletIndication s:Seasonal allergies TAKE 1 TABLET BY MOUTH DAILY IN THE MORNING 90 tablet 3 4 Active albuterol (Ventolin HFA) 108 (90 Base) MCG/ACT inhalerIndicatio ns:Moderate persistent asthma with exacerbation Inhale 2 puffs every 6 (six) hours if needed for wheezing or shortness of breath. 18 g 11 5 026 Active omeprazole (PriLOSEC) [address] capsuleIndicatio ns:Chronic GERD TAKE 1 CAPSULE BY MOUTH EVERY DAY 90 capsule 3 5 Active cyanocobalamin (Vitamin B-12) 100 MCG tabletIndication s:Fibromyalgia TAKE 1 TABLET BY MOUTH EVERY DAY 90 tablet 3 5 Active divalproex (Depakote) 125 MG EC tabletIndication s:Bipolar disorder in partial remission, most recent episode unspecified type (CMS/HCC) TAKE 4 TABLETS BY MOUTH EVERY TWELVE HOURS 240 tablet 3 5 Active atenolol (Tenormin) 25 MG tabletIndication s:Essential hypertension Take 1 tablet (25 mg) by mouth Once per day. 90 tablet 3 5 Active atorvastatin (Lipitor) 10 MG tabletIndication s:Dyslipidemia Take 1 tablet (10 mg) by mouth at bedtime. 90 tablet 3 5 Active fluticasone furoate (Arnuity Ellipta) 100 MCG/ACT inhalerIndicatio ns:Well controlled intermittent asthma INHALE 1 PUFF BY MOUTH EVERY DAY AT THE SAME TIME RINSE MOUTH AFTER USING 30 each 2 5 Active lisinopril 30 MG tabletIndication s:Essential hypertension Take 1 tablet (30 mg) by mouth Once per day. 90 tablet 5 Active Acetaminophen Extra Strength 500 MG tabletIndication s:Fibromyalgia TAKE 1 TABLET BY MOUTH EVERY 8 HOURS NEEDED FOR MILD PAIN 30 tablet 1 5 Active naproxen (Naprosyn) 375 MG tabletIndication s:Knee pain, unspecified chronicity, unspecified laterality Take 1 tablet by mouth if needed in the morning and at bedtime for pain. 5 Active polyethylene glycol, PEG, 3350 (MiraLax) 17 GM/SCOOP powderIndication s:Constipation, unspecified constipation type 17 grams in 8-12 oz fluid like water at bedtime prn constipation 527 g 2 5 Active Active Problems Patient Care Coordination No te [...] large pullups Preventative health care 01/21/2023 Overview (12/07/2024): -next physical exam due after 12/07/25 -eye care facilitated by [facility] -dental home is [facility]. -health care proxy filed 12/07/24 Assessment & Plan (03/20/2025 11:07 AM EDT): -next physical exam due after 12/07/25 -eye care facilitated by [facility] -dental home is [facility]. -health care proxy filed 12/07/24 Assessment & Plan (12/07/2024 1:08 PM EDT): -next physical exam due after 12/07/25 -eye care facilitated by [facility] -dental home is [facility]. -health care proxy filed 12/07/24 Assessment & Plan (08/05/2023 10:58 AM EDT): -next physical exam due after 01/22/2024 -eye care facilitated by [facility] -dental home is [facility]. Assessment & Plan (01/21/2023 10:00 AM EDT): -next physical exam due after 01/22/2024 -eye care facilitated by [facility] -dental home is [facility]. Tubular [...] being 1 cm in Fibromyalgia 05/30/2022 Overview (12/07/2024): She had no improvement with NSAIDs, gabapentin, [...] starting 08/21/23. She agrees with the plan. -agrees to chronic pain group visit, referral placed 12/07/24 Assessment & Plan (01/07/2025 12:37 PM EDT): Pt attended and participated in chronic pain group today - good engagement with group model of care - continue to use combination of non-pharmacological modalities to address pain - followup in one month Assessment & Plan (12/07/2024 1:08 PM EDT): She had no improvement with [...] starting 08/21/23. She agrees with the plan. -agrees to chronic pain group visit, referral placed 12/07/24 Orders: Referral to [facility]; Future Assessment & Plan (08/21/2023 12:37 PM EDT): [...] this. History of tobacco use 05/30/2022 Overview (03/20/2025): -quit 07/2015 -seen by lung cancer screening at [facility] -[facility] 04/07/24. Lung-RADS Category 2: Benign appearance or behavior of nodules. Lung-RADS Category S: None. -Continued routine annual low-dose CT lung screening in 1 year is recommended. Assessment & Plan (01/21/2023 9:07 AM EDT): -quit 07/2015 -seen by [place] cancer screening [place] [facility] Assessment & Plan (05/30/2022 12:03 PM EST): -quit 07/2015 -seen by lung cancer screening at [facility] Other osteoporosis without current pathological fracture 05/30/2022 Overview (03/20/2025): -Followed by Dr. Aly on Vitamin D 1000 daily -DEXA for November 2021 Assessment & Plan (01/21/2023 9:08 AM EDT): -Followed by Dr. Aly on Vitamin D 5,000 daily. -DEXA for November 2021 Assessment & Plan (05/30/2022 12:04 PM EST): -Followed by Dr. Aly on Vitamin D 5,000 daily. -DEXA for November 2021 Essential hypertension 05/01/2022 Overview (03/20/2025): -Blood pressure is at goal -continue atenolol 25mg -continue lisinopril 20mg daily -referral to [facility] Program with our PharmDSAMI 11/2024 and was following but discharged Jan 2025 due to no show x 2 -Continue lifestyle modifications -Continue current medications Assessment & Plan (03/20/2025 11:07 AM EDT): -Blood pressure is at goal -continue atenolol 25mg -continue lisinopril 20mg daily -referral to Collabor[facility] Drug Therapy Managment Program with our SAMI Ramírez placed 11/2024 and was following but discharged Jan 2025 due to no show x 2 -Continue lifestyle modifications -Continue current medications Orders: Albumin, Random Urine W/Creatinine; Future Basic Metabolic Panel; Future Assessment & Plan (12/07/2024 1:08 PM EDT): -Blood pressure is at not goal, asymptoamtic, dclineis acute intervention. Has joseph off her meds -agrees to restart meds today 12/07/24 -referral to Collabor[facility] Drug Therapy Managment Program with our PharmDSAMI placed -Continue lifestyle modifications -Continue current medications Orders: atenolol (Tenormin) 25 MG tablet; Take 1 tablet (25 mg) by mouth Once per day. lisinopril 20 MG tablet; TAKE 1 TABLET BY MOUTH ONCE DAILY Referral to Pharmacy CDTM Albumin, Random Urine W/Creatinine; Future Basic Metabolic Panel; Future TSH W/Reflex to FT4; Future Assessment & Plan (08/05/2023 10:57 AM EDT): -Blood pressure is at goal -Continue lifestyle modifications -Continue current medications Assessment & Plan (01/21/2023 9:07 AM EDT): -Blood pressure is at goal -Continue lifestyle modifications -Continue current medications Basal cell carcinoma of skin 07/06/2021 Overview (12/07/2024): Pt had left lower eye lesion. 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 Pt had basal cell carcinoma of the left lower lid excised by Dr. Sims at [facility] [place] Plastic surgery on 01/07/2011. The area of the scar has not grown since surgery. PT had full thickness wedge resection of left lower lid with Dr. Tam Ovalles on 10/31/14. -no evidence of recurrance Assessment & Plan (12/07/2024 1:08 PM EDT): Pt had left lower eye lesion. 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 Pt had basal cell carcinoma of the left lower lid excised by Dr. Sims at [facility] [place] Plastic surgery on 01/07/2011. The area of the scar has not grown since surgery. PT had full thickness wedge resection of left lower lid with Dr. Tam Ovalles on 10/31/14. -no evidence of recurrance Assessment & Plan (08/03/2023 11:19 AM EDT): Pt had left lower eye lesion. 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 Pt had basal cell carcinoma of the left lower lid excised by Dr. Sims at [facility] Plastic surgery on 01/07/2011. [...] lower lid excised by Dr. Sims at [facility] Plastic surgery on 01/07/2011. [...] lower lid excised by Dr. Sims at [facility] [place] Plastic surgery on 01/07/2011. The area of the scar has not grown since surgery. PT had full thickness wedge resection of left lower lid with Dr. Tam Ovalles on 10/31/14. BRCA2 gene mutation positive 07/06/2021 Overview (03/20/2025): S/p oophorectomy 09/04/[address] Erwin. Pathology revealed right ovary and fallopian tube, left adnexa, no left ovarian tissue identified. She s/p bilateral mastectomy. She has discussed this with her sons who may also be carriers. Seen Dr Ramsey with Oncology on 01/06/2023. Follow up yearly Assessment & Plan (01/21/2023 10:31 AM EDT): [...] also be carriers. Lung nodule 07/06/2021 Overview (12/07/2024): -CT scan 01/02/2020 was category 2 benign, recommending annual CT ordered by Dr. Maral Streeter MD in lung cancer screening program. - CT 04/08/2024 MPRESSION: Stable calcified and noncalcified pulmonary nodules. No new or enlarging nodule. No active lung disease. Lung-RADS Category 2: Benign appearance or behavior of nodules. annual low-dose CT lung screening in 1 year is recommended. Assessment & Plan (12/07/2024 1:08 PM EDT): -CT scan 01/02/2020 was category 2 benign, recommending annual CT ordered by Dr. Maral Streeter MD in lung cancer screening program. - CT 04/08/2024 MPRESSION: Stable calcified and noncalcified pulmonary nodules. No new or enlarging nodule. No active lung disease. Lung-RADS Category 2: Benign appearance or behavior of nodules. annual low-dose CT lung screening in 1 [...] osteoporosis 07/06/2021 Vitamin D deficiency 07/06/2021 Overview (12/07/2024): Vitamin D,1,25 (OH)2, Total Date Value Ref Range Status 06/05/2022 95 (H) 18 - 72 pg/mL Final -continue vit D 1000 Assessment & Plan (12/07/2024 1:08 PM EDT): Vitamin D,1,25 (OH)2, Total Date Value Ref Range Status 06/05/2022 95 (H) 18 - 72 pg/mL Final -continue vit D 1000 Well controlled intermittent asthma 03/04/2018 Overview (12/07/2024): Well controlled Assessment & Plan (03/20/2025 11:07 AM EDT): -controlled on albuterol prn Assessment & Plan (12/07/2024 1:08 PM EDT): Well controlled. Muscle pain 05/01/2014 Dyslipidemia 09/03/2012 Overview (03/20/2025): Lab Results Component Value Date TRIG 75 06/05/2022 -continue lifestyle modification -continue atorvastatin 10mg Assessment & Plan (03/20/2025 11:07 AM EDT): Lab Results Component Value Date TRIG 75 06/05/2022 Lab Results Component Value Date TRIG 75 06/05/2022 -continue lifestyle modification -continue atorvastatin 10mg Orders: Hepatic Function Panel; Future Lipid Panel, Standard; Future Assessment & Plan (12/07/2024 1:08 PM EDT): Orders: atorvastatin (Lipitor) 10 MG tablet; Take 1 tablet (10 mg) by mouth at bedtime. Hepatic Function Panel; Future Lipid Panel, Standard; Future Assessment & Plan (08/05/2023 10:57 AM EDT): [...] by Dr. Rafy Holley who retired, last Cyber Forensic Specialist visit was 11/2020. (note requested) - Followed [...] pap smear was abnormal - Contesting was 4 ASCUS HPV positive. - Colpo was done [...] negative Anxiety 11/14/2011 Bipolar disorder 11/14/2011 Overview (12/07/2024): -Followed by therapist and rx now prescribed by PCP Assessment & Plan (12/07/2024 1:08 PM EDT): Assessment & Plan (06/22/2023 9:30 AM EST): [...] Encounters Date Type Department Care Team Description 03/20/2025 10:30 AM EDT Office Visit [facility] [address] [place] [phone] Valentine Rodriguez MD Essential hypertension (Primary Dx); Dyslipidemia; Well controlled intermittent asthma; Knee pain, unspecified chronicity, unspecified laterality; Preventative health care; Acute URI; Encounter for immunization; Encounter for vaccination; Constipation, unspecified constipation type 03/20/2025 Travel 03/17/2025 Telephone [facility] [address] [place] [phone] Valentine Rodriguez MD chart prep 02/11/2025 Refill [facility] [address] [place] [address] [phone] Valentine Rodriguez MD Fibromyalgia 02/01/2025 Refill [facility] [address] [place] [phone] Slime Ruiz, Desiree Essential hypertension 01/09/2025 8:40 AM EDT Office Visit [facility] [address] [place] [address] Nena Herrera MD Monoarthritis of knee, right (Primary Dx) 01/09/2025 Orders Only GENERIC EXTERNAL DATA DEPARTMENT Provider, Generic External Data 01/09/2025 Travel 01/03/2025 Telephone [facility] [address] [facility] [place] [address] Valentine Rodriguez MD February Recalls 01/03/2025 Travel 01/02/2025 11:00 AM EDT Office Visit [facility] [address] [facility] [place] [address] Nathaly Luevano MD Fibromyalgia (Primary Dx) 01/02/2025 Travel from Last 3 Months Immunizations Immunization Administration Dates Next Due Influenza injectable quadriv alent preservative free 05/13/2021,03/27/2020,06/09/2018,2014 Influenza, seasonal, injecta ble, preservative free 03/20/2025 Pfizer Covid-19 Vaccine 12+ 03/20/2025, Pneumococcal Conjugate PCV 20 08/05/2023 Tdap 01/21/2023,11/27/2011 [...] Answer Date Recorded Patient Health Questionnaire-9 Score 21 12/07/2024 Patient Health Questionnaire-9 Score 21 12/07/2024 Last PHQ-9: Questionnaire Data Not on file 0 12/07/2024 Housing Stability Answer Date Recorded What is your housing situation today? I have maggie santos 03/20/[address] you li ve. Do you have problems with any of the following? None of the above 03/20/2025 Food Insecurity Answer Date Recorded Within the past 12 months, y ou worried that your food would run out before you got money to buy more: Never True 03/20/2025 Within the past 12 months,th e food you bought just didn't last and you didn't have enough money to get more: Never True Transportation Answer Date Recorded In the past 12 months, has l ack of transportation kept you from medical appts, meetings, work or from getting things needed for daily living? No 03/20/2025 Utilities Answer Date Recorded In the past 12 months, has t he electric, gas, oil or water company threatened to shut off services in your home? No 12/07/2024 Depression Answer Date Recorded Patient Health Questionnaire-2 Score 6 12/07/2024 Internet Access Answer Date Recorded Internet Access Q1 No 03/20/2025 Internet Access Q2 I do not want or need it 02/23 Comments Unknown Sex and Gender Information Value Date Recorded Sex Assigned at Female 03/24/2022 10:16 AM EDT Legal Sex Female 10:16 AM EDT Gender Identity Female 03/24/2022 10:16 AM EDT Sexual Orientation Straight 03/24/2022 10 :16 AM EDT Last Filed Vital Signs Vital Sign Reading Time Taken Comments Blood Pressure 120/72 03/20/2025 10:50 AM EDT Pulse 60 03/20/2025 10:50 AM EDT Temperature 35.9 C (96.6 F) 03/20/2025 10:50 AM EDT Respiratory Rate 20 03/20/2025 10:50 AM EDT Oxygen Saturation 98% 03/20/2025 10:50 AM EDT Inhaled Oxygen Concentration - - Weight 75.8 kg (167 lb) 03/20/2025 10:50 AM EDT Height 157.5 cm (5' 2 ) 06/23/2024 9:30 AM EST Body Mass Index 30.54 06/23/2024 9:30 AM EST Plan of Treatment Upcoming Encounters Date Type Department Care Team (Late st Contact Info) Description 03/31/2025 10:30 AM EST Immunization [facility] [address] [place], [place] [phone] Arrived Health Maintenance Due Date Last Done Comments CT Colonography 1960 FIT DNA/Cologuard 1960 FIT 1960 FOBT 1960 Sigmoidoscopy 1960 Derm Melanoma Skin Check 04/28/1961 RSV Patients and Patients Aged 60 years or older (1 - Risk 60-74 years 1-dose series) 2020 Depression Monitoring 06/09/2025 12/07/2024, 025 Alcohol/Substance Use Screening 12/07/2025 12/07/2024 Disability Screening 12/07/2025 12/07/2024 Cervical Cancer Screening 12/10/2025 HPV/Cotest 12/10/2025 12/10/2020 Pap Smear 12/10/2025 12/10/2020, 12/07/2019 SDOH Screening 03/20/2026 03/20/2025 Tobacco Screening 03/20/2026 03/20/2025 Colonoscopy 12/17/2026 12/18/2023, 11/23, 03/13/2012, Additional history exists Colorectal Cancer Screening 12/17/2026 Lipid Panel 06/05/2027 06/05/2022, 10/24, 05/20/2021, Additional history exists DTaP/Tdap/Td Vaccines (3 - Td or Tdap) 01/21/2033 01/21/2023, 11/27/2011 Zoster Vaccines Completed 07/17/2021, 05/16/2021 HIV Screening Completed 06/05/2022 Hepatitis C Screening Completed 06/05/2022 Pneumococcal Vaccine: 50+ Years Completed 08/05/2023 COVID-19 Vaccine Completed 03/20/2025, , 06/05/2021, Additional history exists Influenza Vaccine Completed 03/20/2025, , 03/27/2020, Additional history exists HIB Vaccines Aged Out No longer eligi [...] patient's age to complete this topic Meningococcal B Vaccine Aged Out No l onger eligible based on patient's age to complete [...] Blood Pressure 120/72( 025 10:50 AM EDT) Slime Acevedo PharmD Procedures Procedure Name Priority Date/Time Associated Diagnosis Comments URIC ACID Routine 01/09/2025 10:47 AM EDT C-REACTIVE PROTEIN Routine 01/09/2025 10 :47 AM EDT COMPREHENSIVE METABOLIC PANEL Routine 01/09/2025 10:47 AM EDT CBC WITH AUTO DIFFERENTIAL Routine 01/09/2025 10:47 AM EDT XR KNEE 4+ VIEWS RIGHT Routine 5 9:57 AM EDT HM COLONOSCOPY Routine 12/18/2023 HEPATITIS C VIRAL [...] Recently Relevant to Health Maintenance Results * CBC auto differential (01/09/2025 10:47 AM EDT) White Blood Count 8.2 4.8 - 10.8 X10*3/uL [facility] Red Blood Count 4.30 4.20 - 5.50 X10*6/uL [facility] Hemoglobin 13.0 12.0 - 16.0 g/dl [facility] Hematocrit 39.8 37.0 - 47.0 % [facility] Mean Corpuscular Volume 92.6 80.0 - 98.0 fL [facility] Mean Corpuscular Hemoglobin 30.2 27.0 - 33.0 pg [facility] Mean Corpuscular HGB Conc 32.7 31.0 - 35.0 g/dl [facility] Red Cell Distribution Width 12.8 11.0 - 16.0 % [facility] Platelet Count 306 160 - 400 X10*3/uL [facility] Mean Platelet Volume 9.7 9.4 - 12.3 fL [facility] Neutrophils Percent Auto 61.5 45 - 73 % [facility] Imm Gran Pct Auto 0.4 0.0 - 0.4 % [facility] Lymphocytes Percent Auto 27.0 20 - 40 % [facility] Monocytes Percent Auto 6.6 2 - 11 % [facility] Eosinophils Percent Auto 3.8 0 - 4 % [facility] Basophils Percent Auto 0.7 0 - 2 % [facility] NRBC Pct Auto 0.0 0.0 - 0.2 /100WBC [facility] Neutrophils Absolute Auto 5.1 2.0 - 8.3 x10*3/uL [facility] Imm Gran Abs Auto 0.03 0.00 - 0.03 X10*3/uL [facility] Lymphocytes Absolute Auto 2.2 1.2 - 4.9 X10*3/uL [facility] Monocytes Absolute Auto 0.5 0.1 - 1.2 X10*3/uL [facility] Eosinophils Absolute Auto 0.3 0.0 - 0.4 X10*3/uL [facility] Basophils Absolute Auto 0.1 0.0 - 0.2 X10*3/uL [facility] NRBC Abs Auto 0.000 0.0 - 0.012 X10*3/uL [facility] 01/09/2025 10:4 7 AM EDT 01/09/2025 10:50 AM EDT us Generic External Data Provider LAB BLOOD ORDERAB LES Edited Result - Final Performing Organization Address [facility]/ZIP Co de Phone Number [facility] [address] [place] [phone] * (ABNORMAL) C-reactive Protein (01/09/2025 10:47 AM EDT) C Reactive Protein 1.00(H) < or = 0.50 mg/dL [facility] 01/09/2025 10:4 7 AM EDT 01/09/2025 10:50 AM EDT us Generic External Data Provider LAB BLOOD ORDERAB LES Final Result Performing Organization Address [facility] Co de Phone Number [facility] [address] [place] [phone] * Uric acid (01/09/2025 10:47 AM EDT) Pathologist [facility] Uric Acid 5.5 2.4 - 5.7 mg/dL [facility] 01/09/2025 10:4 7 AM EDT 01/09/2025 10:50 AM EDT us Generic External Data Provider LAB BLOOD ORDERAB LES Final Result Performing Organization Address [facility] de Phone Number [facility] [address] [place] [address] [phone] * (ABNORMAL) Comprehensive Metabolic Panel (01/09/2025 10:47 AM EDT) Sodium 140 135 - 145 mmol/L [facility] Potassium 4.4 3.3 - 5.1 mmol/L [facility] Chloride 108 96 - 108 mmol/L [facility] Carbon Dioxide 25 22 - 29 mmol/L [facility] Anion Gap 11(L) 12 - 20 [facility] Urea Nitrogen (BUN) 16 9 - 16 mg/dL [facility] Creatinine, Serum 0.78 0.5 - 1.4 mg/dL [facility] Creatinine Clr Calc Pharmacy 68.8 [facility] Comment:Provided height and weight: 157.48 cm,74.4 kg.eGFR (calculated from the MDRD study equation) and eCrCl(calculated from the Cockcroft-Gault equation) are based ondifferent parameters and may not yield comparable results.If eCrCl result is absurd, please check patient'sheight/weight. Estimated Glomerular Filt Rate >60 [facility] Comment:Chronic Kidney Disea se: Estimated GFR < 60 mL/min/1.71t7Uasthy Kidney Disease: Estimated GFR < 15 mL/min/1.73m2 Glucose 99 60 - 115 mg/dL [facility] Calcium 9.3 8.4 - 10.2 mg/dL [facility] Bilirubin, Total 0.4 0.0 - 1.0 mg/dL [facility] Aspartate Amino Transferase 26 5 - 31 U/L [facility] Alanine Aminotransferase 20 0 - 31 U/L [facility] Total Protein 7.6 6.5 - 8.0 g/dL [facility] Albumin Level 4.5 3.5 - 5.0 g/dL [facility] Alkaline Phosphatase 123(H) 39 - 117 U/L [facility] 01/09/2025 10:4 7 AM EDT 01/09/2025 10:50 AM EDT us Generic External Data Provider LAB BLOOD ORDERAB LES Final Result [facility] [address] [place] [phone] * XR Knee 4+ Views Right (01/09/2025 9:57 AM EDT) Anatomical Region Laterality Modality Lower Extremities, Knee Right Radiogra phic Imaging 01/09/2025 9:57 AM EDT Narrative 01/09/2025 11:04 AM EDT [address] [phone] XRay Report Signed Patient: Sanchez Blackburn MR#: [id number] : 1960 Acct:[id number] Age/Sex: 64 / F ADM Date: 01/09/25 Loc: HO.ED Attending Dr: Ordering Physician: Kasia Gallo Date of Service: 01/09/25 Procedure(s): XR knee RT 4V Accession Number(s): [id number] cc: Valentine Rodriguez MD; Kasia Gallo EXAMINATION: XR KNEE, RIGHT CLINICAL INFORMATION: swelling, red, pain COMPARISON: March 02, 2021 TECHNIQUE: AP oblique and lateral views of the right knee. FINDINGS: No acute cortical disruption or malalignment. Suprapatellar bursa joint effusion, moderate to large volume. Joint space narrowing involving mostly the medial compartment. No lytic or blastic lesions. 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 Suprapatellar bursa joint effusion, moderate to large volume. Electronically signed by: Elias More MD 01/09/2025 11:01 AM EDT Dictated By: Elias Vidal MD Signed By: <Electronically signed by Elias Linda MD in OV> 01/09/25 1101 DD/ 0957 TD/TT: 01/09/25 1056 Steam Box Hand: Procedure Note Donotuseinterpreter, Image - 01/09/2025 [place] [id number] XRay Report Signed Patient: Sanchez Blackburn MMR#: [id number] : 1960cct:[id number] Age/Sex: 64 / FADM Date: 01/09/25 Loc: .ED Attending Dr: Ordering Physician: Kaisa Gallo Date of Service: 01/09/25 Procedure(s): XR knee RT 4V Accession Number(s): [id number] cc: Valentine Rodriguez MD; Kasia Gallo EXAMINATION: XR KNEE, RIGHT CLINICAL INFORMATION: swelling, red, pain COMPARISON: March 02, 2021 TECHNIQUE: AP oblique and lateral views of the right knee. FINDINGS: No acute cortical disruption or malalignment. Suprapatellar bursa joint effusion, moderate to large volume. Joint space narrowing involving mostly the medial compartment. No lytic or blastic lesions. 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 Suprapatellar bursa joint effusion, moderate to large volume. Electronically signed by: Elias More MD 01/09/2025 11:01 AM EDT RP Dictated By: Elias Vidal MD Signed By: <Electronically signed by Elias Linda MDin OV> 01/09/25 1101 DD/ 0957 TD/TT: 01/09/25 1056 Steam Box Hand: [facility] External Provider IMG XR PROCEDURES Final Result * (ABNORMAL) Hm Colonoscopy (12/18/2023) Colonoscopy Abnormal( A) Normal Comment:with jami Gaitan ubular adenoma 12/18/2023 Historical Provider HEALTH MAINTENANCE Final Result * Hepatitis C Viral RNA, Quantitative, Real-Time PC (06/05/2022 9:19 AM EST) Pathologist [facility] HCV RNA, QN Real Time PCR <15 NOT DETECTED NOT DETECTED IU/mL [employer] [facility] HCV RNA QN Real Time PCR <1.18 NOT DETECTED NOT DETECTED Log IU/mL [employer] [facility] Comment: This test was performed using Real-Time Polymerase Chain Reaction. Reportable Range: 15 IU/mL to 100,000,000 IU/mL (1.18 Log IU/mL to 8.00 Log IU/mL). The analytical performance characteristics of this assay have been determined by [employer]. The modifications have not been cleared or approved by the FDA. This assay has been validated pursuant to the CLIA regulations and is used for clinical purposes. For more information on this test, go to: http://Max Rumpus.Quibly/faq/GMJ40b9 (This link is being provided for informational/ educational purposes only.) 06/05/2022 9:19 AM EST 06/05/2022 9:20 AM EST Narrative [facility] - 06/10/2022 12:06 PM EST FASTING:YES FASTING: YES Valentine Rodriguez MD LAB BLOOD ORDERABLES Final Result [facility] [address] [facility], 3[address], [place] [address] [employer] [place] [employer] [address] [facility], ([address]) [place] [address] * HIV-1/2 Antigen and Antibodies, Fourth Generation, with Reflexes (06/05/2022 9:19 AM EST) HIV Antigen/Antibody, 4th Generation NON-REAC TIVE NON-REAC TIVE [employer] [place] [employer] Comment: HIV-1 antigen and HIV-1/HIV-2 antibodies were not detected. There is no laboratory evidence of HIV infection. PLEASE NOTE: This information has been disclosed to you from records whose confidentiality may be protected by state law. If your state requires such protection, then the state law prohibits you from making any further disclosure of the information without the specific written consent of the person to whom it pertains, or as otherwise permitted by law. A general authorization for the release of medical or other information is NOT sufficient for this purpose. For additional information please refer to http://Max Rumpus.Horizontal Systems.No World Borders/faq/AXC825 (This link is being provided for informational/ educational purposes only.) The performance of this assay has not been clinically validated in patients less than 2 years old. Blood Venous blood specimen / Unknown 06/05/2022 9:19 AM EST 06/05/2022 9:20 AM EST Narrative [facility] - 06/10/2022 12:06 PM EST FASTING:YES FASTING: YES Valentine Rodriguez MD LAB BLOOD ORDERABLES Final Result Performing Organization Address City/[facility]/ZIP Co de Phone Number [facility] [address], [place] [address] [employer] [place] [employer] [address] [facility], ([address]) [place] [address] * (ABNORMAL) Lipid Panel, Standard (06/05/2022 9:19 AM EST) Cholesterol, Total 182 <200 mg/dL [employer] [place] [employer] HDL Cholesterol 58 > OR = 50 mg/dL [employer] [place] [employer] Triglycerides 75 <150 mg/dL [employer] [place] [employer] LDL Cholesterol 108(H) mg/dL (calc) [employer] [place] [employer] Comment: Reference range: <100 Desirable range <100 mg/dL for primary prevention; <70 mg/dL for patients with CHD or diabetic patients with > or = 2 CHD risk factors. LDL-C is now calculated using the Delta-Kelley calculation, which is a validated novel method providing better accuracy than the Friedewald equation in the estimation of LDL-C. Delta PHILIP et al. CHAR. 2013;310(19): 7152-6809 (http://education.Austin-Tetra/faq/MIV055) Chol/HDLC Ratio 3.1 <5.0 (calc) [employer] [place] [facility] Non-HDL Cholesterol 124 <130 mg/dL (calc) [employer] [place] [employer] Comment: For patients with diabetes plus 1 major ASCVD risk factor, treating to a non-HDL-C goal of <100 mg/dL (LDL-C of <70 mg/dL) is considered a therapeutic option. Blood Venous blood specimen / Unknown 06/05/2022 9:19 AM EST 06/05/2022 9:20 AM EST Narrative [facility] - 06/10/2022 12:06 PM EST FASTING:YES FASTING: YES Valentine Rodriguez MD LAB BLOOD ORDERABLES Final Result Performing Organization Address City/[facility]/ZIP Co de Phone Number [facility] [address], [place] [address] [employer] [place] [employer] [address] [facility], ([address]) [place] [address] * HPV High Risk PCR (12/10/2020) Swab Cervical swab / Unknown 12/10/2020 Historical Provider LAB MICROBIOLOGY - GENERA L ORDERABLES Final Result * Pap Smear (12/10/2020) Swab 12/10/2020 Historical Provider LAB CYTOLOGY ORDERABLES F inal Result from Last 3 Months or Most Recently Relevant to Health Maintenance Insurance [place], [place] [facility] Advance Directives Documents on File Type Date Recorded Patient Him Director Expl anation HealthCare Proxy 12/07/2024 Care Teams Construction Trades Contractor Relationship Specialty Start Date End Date Michael, MD Valentine [address] [place] [address] PCP - General Family Medicine 05/25/18 Timmy Contreras FNP [address] [place] [address] Nurse Practitioner Family Medicine 04/13/23 Slime Ruiz, PharmD [address] [place] [address] Pharmacist Pharmacy 12/23/24
--- OUTSIDE RECORDS SUMMARY | 2025-03-31 10:18 | XMS_ITS | Encounter Summary ---
Author Organization [employer] Address [address] [facility] [address] [place] [address] Care Team Providers Care Torsion Spring Coiling Machine Setter Name Role Phone Lares, Valentine EDWARDS Primary Care Provider [phone]- [phone] Timmy Contreras Unavailable Unavailable Slime Ruiz PharmD Unavailable [phone]- [phone] Reason for Visit * Reason Comments Med Refill Encounter Details Date Type Department Care Team (Late st Contact Info) Description 11/01/2023 Refill [facility] [address] [place] [address] Timmy Contreras FNP Bipolar disorder in partial remission, most recent episode unspecified type ([facility]) Social History Tobacco Use Types Packs/Day Years [...] Info) Description 03/31/2025 10:30 AM EST Immunization [facility] [address] [place] [address] Arrived documented as of this encounter Goals Goal Patient Goal Type Associated Problems Recent Progress Patient-Stated? Author Blood Pressure < 140/90 Blood Pressure 120/72( 025 10:50 AM EDT) No Slime Hernandez PharmD documented as of this encounter Visit Diagnoses Diagnosis Bipolar disorder in partial remission, most recent episode unspecified type (CMS/[facility]) documented in this encounter Additional Health Concerns Assessment Noted Time PHQ-9 Depression Total Score: 16 024 8:59 AM EST documented as of this encounter Care Teams [place] Coiling Machine Setter Relationship Specialty Start Date End Date Valentine Rodriguez MD [address] [place] [address] PCP - General Family Medicine 05/25/18 Timmy Contreras FNP [address] [place] [address] Nurse Practitioner Family Medicine 04/13/23 Slime Ruiz, PharmD [address] [place] [phone] Pharmacist Pharmacy 12/23/24 documented as of this encounter
--- OUTSIDE RECORDS SUMMARY | 2025-03-31 10:18 | XMS_ITS | Encounter Summary ---
Author Organization [employer] Address [address] [place] [address] Care Team Providers Care Rib Knitter Name Role Phone Valentine Rodriguez MD Primary Care Provider [phone]- [phone] Timmy Contreras WAVE SOLDER OFFBEARER Unavailable Unavailable Slime Ruiz PharmD Unavailable [phone]- [phone] Encounter Details Date Type Department Care Team (Late st Contact Info) Description 06/23/2024 Orders Only [facility] [address] [place] [address] Valentine Rodriguez MD [address] [place] [address] Essential hypertension Social History Tobacco Use Types [...] Info) Description 03/31/2025 10:30 AM EST Immunization [facility] [address] [place] [address] Arrived documented as of this encounter Goals [...] documented as of this encounter Care Teams Rib Knitter Relationship Specialty Start Date End Date Valentine Rodriguez MD [address] [place] [address] PCP - General Family Medicine 05/25/18 Timmy Contreras FNP [address] [place] [address] Nurse Practitioner Family Medicine 04/13/23 Slime Ruiz, DanyaD [address] [place] [address] Pharmacist Pharmacy 12/23/24 documented as of this encounter
--- OUTSIDE RECORDS SUMMARY | 2025-03-31 10:18 | XMS_ITS | Encounter Summary ---
Author Organization [employer] Address [address] [facility] 7t [place] [address] Care Team Providers Care Lead Refiner Name Role Phone Valentine Rodriguez MD Primary Care Provider [phone]- [phone] Timmy Contreras PRODUCTION SUPERINTENDENT Unavailable Unavailable Slime Ruiz PharmD Unavailable [phone]- [phone] Encounter Details Date Type Department Care Team (Late st Contact Info) Description 08/07/2023 Orders Only [facility] [address] [place] [address] Valentine Rodriguez MD [address] [place] [address] Polymyalgia rheumatica (CMS/HCC) (Primary Dx) Social History [...] Info) Description 03/31/2025 10:30 AM EST Immunization [facility] [address] [place] [address] Arrived documented as of this encounter Goals Goal Patient Goal Type Associated Problems Recent Progress Patient-Stated? Author Blood Pressure < 140/90 Blood Pressure 120/72( 025 10:50 AM EDT) No Slime Hernandez PharmD documented as of this encounter Visit Diagnoses Diagnosis Polymyalgia rheumatica (CMS/[facility])- Primary Polymyalgia rheumatica documented in this encounter Additional Health Concerns Assessment Noted Time PHQ-9 Depression Total Score: 16 024 8:59 AM EST documented as of this encounter Care Teams Lead Refiner Relationship Specialty Start Date End Date Valentine Rodriguez MD [address] [place] [address] PCP - General Family Medicine 05/25/18 Timmy Contreras FNP [address] [place] [address] Nurse Practitioner Family Medicine 04/13/23 Slime Ruiz, PharmD [address] [place] [phone] Pharmacist Pharmacy 12/23/24 documented as of this encounter
[2025-03-31 11:23] LABS: MANUAL DIFF FLAG NO
[2025-03-31 11:35] LABS: Hematocrit 41.8 % (37.0-47.0); Hemoglobin 13.0 g/dl (12.0-16.0); Imm Gran Abs Auto 0.02 X10*3/uL (0.00-0.03); Imm Gran Pct Auto 0.3 % (0.0-0.4); Lymphocytes Absolute Auto 2.4 X10*3/uL (1.2-4.9); Mean Corpuscular HGB Conc 31.1 g/dl (31.0-35.0); Mean Corpuscular Hemoglobin 29.2 pg (27.0-33.0); Mean Corpuscular Volume 93.9 fL (80.0-98.0); NRBC Abs Auto 0.000 X10*3/uL (0.0-0.012); NRBC Pct Auto 0.0 /100WBC (0.0-0.2); Platelet Count 328 X10*3/uL (160-400); Red Blood Count 4.45 X10*6/uL (4.20-5.50); White Blood Count 7.6 X10*3/uL (4.8-10.8)
[2025-03-31 12:05] LABS: Alanine Aminotransferase 15 U/L (0-31); Albumin Level 4.5 g/dL (3.5-5.0); Alkaline Phosphatase 107 U/L (39-117); Anion Gap 11 (12-20); Aspartate Amino Transferase 26 U/L (5-31); Blood Urea Nitrogen 17 mg/dL (9-16); Calcium 9.6 mg/dL (8.4-10.2); Carbon Dioxide 29 mmol/L (22-29); Chloride 106 mmol/L (96-108); Cholesterol 191 mg/dL (<200); Estimated Glomerular Filt Rate > 60; HDL Cholesterol 47 mg/dL (>40); Potassium 4.7 mmol/L (3.3-5.1); Sodium 141 mmol/L (135-145); Total Protein 7.9 g/dL (6.5-8.0); Triglycerides 128 mg/dL (<150)
[2025-03-31 12:25] LABS: Microalbum/Creatinine Ratio Ur 56.2 ug/mg cr (<30)
== END 2025-03-31 09:13 | disposition home or self-care (01) ==
LOC: HO.HHCL 09:12
PROVIDERS: Internal Medicine Medical Oncology; PCP Family Medicine; Visit Provider Family Medicine
DX: C50.919 Malignant neoplasm of unspecified site of unspecified female breast (principal); I10 Essential (primary) hypertension; E78.5 Hyperlipidemia, unspecified
CPT/HCPCS: 36415; 80053; 80061; 80076; 82043; 82248; 82570; 84443; 85025